=== PATIENT | male | born 1965 | race Caucasian/White ===

== ENCOUNTER 2016-02-23 18:01 | Emergency (ER) | payer BC, OTHER ==
[~2016-02-23] VITALS: Ht 177.8 cm; Wt 120.2 kg
[~2016-02-23 18:01] MED LIST: ALBUAER2 INH; IBUP600T44 PO; VALA500T60 PO
[2016-02-23 18:05] VITALS: TEMP 37.2; Ht 177.8 cm; Wt 120.2 kg
[2016-02-23] MEDS ORDERED: ALBUT/IPRATROP 3MG/0.5MG NEB 3 ML VIAL INH STA (19:10)
[2016-02-23] MEDS ORDERED: SODIUM CHLORIDE 0.9% 1000ML 1,000 ML IV STA (19:10)
[2016-02-23] MEDS ORDERED: METHYLPREDNISOLONE 125 MG VIAL IV STA (19:10)
[2016-02-23] MEDS ORDERED: OPTIRAY 320 IV PRN (19:15)
--- NOTE | 2016-02-23 19:28 | EMERGENCY ROOM VISIT NOTE ---
History Report prepared by Araseli: Veronica Judd Under the Supervision of: Dr. Carolee Macias M.D. First contact with patient: 19:03 Chief Complaint: RESPIRATORY PROBLEMS Stated Complaint: WHEEZING, COUGH, SOB Nursing Triage Summary: Bronchitis last week, feels it has worsened. SOB, worse cough, wheezing. 5 day Zpak and 5 days of prednisone. History of Present Illness The patient is a 50 year old male who presents to the Emergency Room with complaints of worsening respiratory symptoms for the past 5 days. He developed symptoms and was evaluated at [facility] where he was diagnosed with bronchitis. He was prescribed 5 days of a Z-Rory and prednisone. He finished these medications but feels that his symptoms have worsened. The patient is experiencing shortness of breath, productive cough, wheezing, and chest pain. His pain is worse with inspiration and coughing. He rates his pain as a 10/10. He denies fever, pain or swelling in his legs, and any personal history of PE. He had a negative flu test 5 days ago. The patient has a history of Hodgkin's Disease and a right middle lobectomy. Source of History: patient Onset: 5 days ago Position: chest (respiratory) Symptom Intensity: 10/10 Quality: other (wheezing) Timing: worsening Modifying Factors (Worsening): breathing (inspiration), other (cough) Associated Symptoms: + SOB, + chest pain, + cough, No fevers Note: Pt denies any pain or swelling in his legs or personal history of PE. Review of Systems See HPI for pertinent positives & negatives. A total of 10 systems reviewed and were otherwise negative. Past Medical & Surgical Medical Problems: (1) COPD exacerbation (2) Esophageal Reflux (3) Hodgkin's disease (4) Hypertension Nos (5) mediport (6) MRSA skin cellulitis (7) Obesity, Nos Surgical Problems: (1) History of lobectomy of lung Social History Problems: (1) Calculus Of Kidney Family History No pertinent history stated. Social History Smoking Status: Never Smoker Alcohol Use: none Marital Status: Housing Status: lives with significant other Occupation Status: employed Current/Historical Medications Scheduled Levofloxacin (Levaquin), 750 MG PO DAILY Prednisone (Prednisone), 10 MG PO DIRECTED Valacyclovir (Valtrex), 500 MG PO HS Scheduled PRN Albuterol (Ventolin), 2 PUFFS INH BID PRN for RN Ibuprofen (Motrin), 600 MG PO Q6H PRN for Pain Allergies Coded Allergies: No Known Allergies (Verified , 02/23/16) Physical Exam Vital Signs Date Time Temp Pulse Resp B/P Pulse Ox O2 Delivery O2 Flow Rate FiO2 02/23/16 22:38 91 18 159/98 91 Room Air 02/23/16 21:38 92 18 173/95 93 Room Air 02/23/16 19:33 88 02/23/16 19:30 94 Room Air 02/23/16 19:28 91 20 162/91 91 Room Air 02/23/16 18:08 Room Air 96 02/23/16 18:05 37.2 101 20 176/73 96 Room Air Physical Exam Vital signs reviewed. General: Well-appearing 50 year old male, in no significant distress. HEENT: No scleral icterus, PERRLA, neck supple. Atraumatic. Cardiovascular: Regular rate and rhythm, no extra sounds. Pulmonary: Rhonchi bilaterally, increased work of breathing. Abdomen: Soft, obese, nontender, nondistended, positive bowel sounds. Musculoskeletal: Atraumatic, no peripheral edema. Neurologic: Patient awake alert and oriented x 3, full strength in all 4 extremities. Cranial nerves 2 through 12 grossly intact. Skin: Warm, dry, no rash Medical Decision & Procedures ER Provider Diagnostic Interpretation: Radiology results as stated below per my review and radiologist interpretation: CHEST CTA for PULMONARY ARTERIES CT DOSE: 861.48 mGy.cm HISTORY: Cough. TECHNIQUE: Multiaxial CT images of the chest were performed following the intravenous administration of contrast to evaluate the pulmonary arteries. Maximal intensity projection images were also obtained. COMPARISON STUDY: Chest CT 12/22/2015. FINDINGS: Normal caliber thoracic aorta with no evidence for dissection. The heart is normal in size. No pleural or pericardial effusions. Suboptimal evaluation of the left lower lobe segmental/subsegmental pulmonary arteries due to the motion artifact. However, no definite filling defects within the pulmonary arteries to suggest pulmonary embolus. Right-sided post thoracotomy changes are again noted for a right lower lobe segmentectomy. No pneumothorax. Scattered tree-in-bud nodular opacities most pronounced within the bilateral lower lobes have developed in the interval. Small subpleural nodular density within the right lower lobe remains stable. This measures 7 mm and is likely benign. Mild left lower lobe bronchiectasis persists. Mild bronchial wall thickening has progressed. The liver and spleen are unremarkable. Stable nodular thickening of the left adrenal gland. Prominent gastrohepatic lymph nodes remain stable. However, there is been interval development of mediastinal and bilateral hilar lymphadenopathy. Dominant subcarinal lymph node measures 4.4 x 2.2 cm. There is enlarged left axillary lymph node measuring 2.5 x 1.8 cm. Multiple additional bilateral axillary lymph nodes are either subcentimeter in short axis diameter or demonstrate fatty jade. IMPRESSION: 1. No evidence for pulmonary embolus with limitations as described above. 2. Interval development of scattered tree-in-bud nodular opacities most pronounced within the lower lobes. This favors an infectious bronchiolitis and may be due to aspiration. 3. Interval development of mediastinal and bilateral hilar lymphadenopathy. There is also an enlarged left axillary lymph node. This is nonspecific but could be reactive or due to a neoplastic or inflammatory process such as sarcoidosis. Follow-up pulmonary consultation is recommended for further evaluation. Electronically signed by: Wander Samano M.D. 02/23/2016 10:15 PM Laboratory Results 02/23/16 20:31 Red Blood Count 4.52, Mean Corpuscular Volume 84.1, Mean Corpuscular Hemoglobin 29.2, Mean Corpuscular Hemoglobin Concent 34.7, Mean Platelet Volume 9.4 02/23/16 20:31 Test 02/23/16 20:01 02/23/16 20:02 02/23/16 20:31 02/23/16 20:49 Bedside D-Dimer > 450 ng/mlFEU (0-450) Bedside Troponin I 0.020 ng/ml (0-0.045) Influenza Type A (RT-PCR) Neg for Influ A (NEG) Influenza Type B (RT-PCR) Neg for Influ B (NEG) White Blood Count 8.96 K/uL (4.8-10.8) Red Blood Count 4.52 M/uL (4.7-6.1) Hemoglobin 13.2 g/dL (14.0-18.0) Hematocrit 38.0 % (42-52) Mean Corpuscular Volume 84.1 fL (80-100) Mean Corpuscular Hemoglobin 29.2 pg (25-34) Mean Corpuscular Hemoglobin Concent 34.7 g/dl (32-36) Platelet Count 135 K/uL (130-400) Mean Platelet Volume 9.4 fL (7.4-10.4) RDW Standard Deviation 43.8 fL (36.4-46.3) RDW Coefficient of Variation 14.2 % (11.5-14.5) Neutrophils % (Manual) 57.9 % Lymphocytes % (Manual) 29.8 % Monocytes % (Manual) 8.8 % Eosinophils % (Manual) 2.6 % Metamyelocytes % 0.9 % Neutrophils # (Manual) 5.19 K/uL (1.4-6.5) Total Absolute Neutrophils 5.19 K/uL (1.4-6.5) Lymphocytes # (Manual) 2.67 K/uL (1.2-3.4) Total Absolute Lymphocytes 2.67 K/uL (1.2-3.4) Monocytes # (Manual) 0.79 K/uL (0.11-0.59) Eosinophils # (Manual) 0.23 K/uL (0-0.5) Metamyelocytes # 0.08 K/uL (0-0) Red Blood Cell Morphology Unremarkable Prothrombin Time 10.9 SECONDS (9.0-12.0) Prothromb Time International Ratio 1.0 (0.9-1.1) Activated Partial Thromboplast Time 25.3 SECONDS (21.0-31.0) Partial Thromboplastin Ratio 1.0 Est Creatinine Clear Calc Drug Dose 159.5 ml/min Estimated GFR () 126.1 Estimated GFR (Non- 108.8 BUN/Creatinine Ratio 29.0 (10-20) Calcium Level 8.2 mg/dl (8.5-10.1) Total Bilirubin 0.7 mg/dl (0.2-1) Direct Bilirubin 0.2 mg/dl (0-0.2) Aspartate Amino Transf (AST/SGOT) 41 U/L (15-37) Alanine Aminotransferase (ALT/SGPT) 116 U/L (12-78) Alkaline Phosphatase 60 U/L (45-117) Total Creatine Kinase 782 U/L (39-308) Creatine Kinase MB 4.9 ng/ml (0.5-3.6) Creatine Kinase MB Ratio 0.6 (0-3.0) Total Protein 6.1 gm/dl (6.4-8.2) Albumin 3.0 gm/dl (3.4-5.0) Bedside Hemoglobin 12.6 g/dl (14.0-18.0) Bedside Hematocrit 37 % (42-52) Bedside Sodium 143 mEq/L (135-144) Bedside Potassium 3.0 mEq/L (3.3-5.0) Bedside Chloride 100 mEq/L (101-112) Bedside Total CO2 26 mEq/l (24-31) Anion Gap 21.0 mmol/L (16-25) Bedside Blood Urea Nitrogen 22 mg/dl (7-18) Bedside Creatinine 0.7 mg/dl (0.6-1.3) Bedside Glucose (other) 105 mg/dl (70-99) Bedside Ionized Calcium (Rajwinder) 1.05 mmol/l (1.12-1.32) Laboratory results per my review. Medications Administered Medications (Trade) Dose Ordered Sig/Gwen Route Start Time Stop Time Status Last Admin Dose Admin Sodium Chloride (Nss 1000ml) 1,000 ml @ 125 mls/hr Q8H STAT IV 02/23/16 19:10 02/23/16 21:06 DC 02/23/16 20:02 125 MLS/HR Albuterol/ Ipratropium (Duoneb) 3 ml NOW STAT INH 02/23/16 19:10 02/23/16 21:06 DC 02/23/16 19:43 3 ML Methylprednisolone Sodium Succinate (Solu-Medrol IV) 125 mg NOW STAT IV 02/23/16 19:10 02/23/16 21:06 DC 02/23/16 19:43 125 MG Levofloxacin (Levaquin Tab) 750 mg NOW ONCE PO 02/23/16 22:45 02/23/16 22:46 DC 02/23/16 22:56 750 MG Heparin Sodium (Porcine) (Heparin 10 Unit/ ml 5 ml Flush) 5 ml NOW STAT FLUSH 02/23/16 22:46 02/23/16 22:47 DC 02/23/16 22:51 5 ML ECG Indication: SOB/dyspnea Rate (beats per minute): 85 Rhythm: normal sinus Findings: no acute ischemic change, no ectopy ED Course 1904: Past medical records reviewed. The patient was evaluated in room C7. A complete history and physical examination was performed. 1909: Solu-Medrol 125 mg IV, Duoneb 3 ml INH, NSS 1000 ml @ 125 mls/hr IV 2229: I reassessed the patient at this time. He is feeling better and resting comfortably. I discussed the results and treatment plan with the patient. I answered all pertaining questions that he had. He expressed understanding and verbalized agreement. The patient will be discharged home. 5: Levofloxacin 750 mg PO 2245: Heparin Sodium 3 ml Flush Medical Decision Differential diagnosis: Etiologies such as infections, reactive airway disease, pneumonia, pneumothorax , COPD, CHF, cardiac ischemia, pulmonary embolism, musculoskeletal, gastrointestinal, as well as others were entertained. This pt was evaluated and appeared to be in no distress. He does have increase WOB. Pt has a significant medical history. He was given a duoneb tx. Chest CT was performed d/t h/o lymphoma and risk of PE. This study is neg for PE but reveals interval development of scattered tree-in-bud nodular opacities most pronounced within the lower lobes. This favors an infectious bronchiolitis and may be due to aspiration. There is also concern over increased lymphadenopathy. Pt was informed of the findings. He was placed on prednisone and levaquin. Pt was advised to see his PCP and oncologist in f/u. He declines albuterol inhalers as they "don't work" for him. He will return to the ED for worsening of symptoms or any medical concerns. Impression Primary Impression: Pneumonia Additional Impression: H/O Hodgkin's lymphoma Scribe Attestation The scribe's documentation has been prepared under my direction and personally reviewed by me in its entirety. I confirm that the note above accurately reflects all work, treatment, procedures, and medical decision making performed by me. Departure Information Dispostion Home / Self-Care Prescriptions Prednisone (Prednisone) 10 Mg Tab 10 MG PO DIRECTED, #31 TAB Plenty milligrams daily for 4 days, 30 mg for 3 days, 20 mg for 2 days, 10 mg for 2 days Prov: Carolee Macias M.D. 02/23/16 Levofloxacin (Levaquin) 750 Mg Tab 750 MG PO DAILY for 6 Days, #6 TAB Prov: Carolee Macias M.D. 02/23/16 Referrals Adriana Jimenez M.D. (MEDICAL) (PCP) Forms HOME CARE DOCUMENTATION FORM, IMPORTANT VISIT INFORMATION, WORK / SCHOOL INSTRUCTIONS Patient Instructions A Signature Page, My [facility] Additional Instructions Diagnosis: Pneumonia Levaquin 750 mg daily for 6 more days, start tomorrow Prednisone 40 mg for 4 days, 30 mg for 3 days, 20 mg for 2 days, 10 mg for 2 days Tylenol 650 mg every 6 hours as needed for fever. Follow-up with your physician this week for reevaluation. Return to the emergency department for worsening of symptoms or any medical concerns.
[2016-02-23] MEDS ORDERED: MAGNESIUM HYDROXIDE SUSP 30 ML UDC PO PRN (20:00)
[2016-02-23] MEDS ORDERED: ALBUTEROL 0.083% NEBU SOLN 3 ML VIAL INH PRN (20:00)
[2016-02-23] MEDS ORDERED: ALBUT/IPRATROP 3MG/0.5MG NEB 3 ML VIAL INH SCH (20:00)
[2016-02-23] MEDS ORDERED: METHYLPREDNISOLONE IV 60 MG in SYRINGE 0 ML IV SCH (20:00)
[2016-02-23] MEDS ORDERED: ALUMINUM/MAGNESIUM/SIMETH (MAALOX MAX) 30 ML UDC PO PRN (20:00)
[2016-02-23] MEDS ORDERED: ACETAMINOPHEN 325 MG TAB PO PRN (20:00)
[2016-02-23] MEDS ORDERED: ONDANSETRON INJ 2 MG/ML 2 ML VIAL IV PRN (20:00)
[2016-02-23] MEDS ORDERED: ZOLPIDEM TARTRATE 5 MG TAB PO PRN (20:00)
[2016-02-23 20:39] LABS: ALKALINE PHOSPHATASE 61 U/L (45-117); ALT/SGPT 121 U/L (12-78); BLOOD UREA NITROGEN 22 mg/dl (7-18); BUN/CREATININE RATIO 30.1 (10-20); CALCIUM 8.2 mg/dl (8.5-10.1); CARBON DIOXIDE 27 mmol/L (21-32); CHLORIDE 105 mmol/L (98-107); CREATININE 0.74 mg/dl (0.60-1.40); GLUCOSE 96 mg/dl (70-99); SODIUM 143 mmol/L (136-145)
[2016-02-23] MEDS ORDERED: POLYETHYLENE (MIRALAX) 17 GM PACK PO PRN (20:45)
[2016-02-23 20:46] LABS: MEAN CELL VOLUME 84.1 fL (80-100); MEAN CORPUSCULAR HEMOGLOBIN 29.2 pg (25-34); MEAN CORPUSCULAR HGB CONC 34.7 g/dl (32-36); MEAN PLATELET VOLUME 9.4 fL (7.4-10.4); PLATELET COUNT 135 K/uL (130-400); RED BLOOD COUNT 4.52 M/uL (4.7-6.1); WHITE BLOOD COUNT 8.96 K/uL (4.8-10.8)
[2016-02-23 21:00] LABS: PROTHROMBIN TIME (PATIENT) 10.9 SECONDS (9.0-12.0)
[2016-02-23 21:01] LABS: ISTAT CREATININE 0.7 mg/dl (0.6-1.3); ISTAT HEMOGLOBIN 12.6 g/dl (14.0-18.0); ISTAT IONIZED CALCIUM 1.05 mmol/l (1.12-1.32)
[2016-02-23 21:11] LABS: CALCIUM 8.2 mg/dl (8.5-10.1); CREATININE 0.72 mg/dl (0.60-1.40); POTASSIUM 3.2 mmol/L (3.5-5.1)
[2016-02-23 21:15] LABS: COMPLETE YES; EOSINOPHIL % 2.6 %; LYMPH ABS # 2.67 K/uL (1.2-3.4); LYMPHOCYTE % 29.8 %; META ABS # 0.08 K/uL (0-0); METAMYELOCYTE % 0.9 %; NEUTROPHILS % 57.9 %
[2016-02-23 21:16] LABS: CKMB/CK RATIO 0.6 (0-3.0)
[2016-02-23 21:38] LABS: INFLUENZA A PCR Neg for Influ A (NEG); INFLUENZA B PCR Neg for Influ B (NEG)
--- NOTE | 2016-02-23 22:17 | DIAGNOSTIC IMAGING REPORT ---
CHEST CTA for PULMONARY ARTERIES CT DOSE: 861.48 mGy.cm HISTORY: Cough. TECHNIQUE: Multiaxial CT images of the chest were performed following the intravenous administration of contrast to evaluate the pulmonary arteries. Maximal intensity projection images were also obtained. COMPARISON STUDY: Chest CT 12/22/2015. FINDINGS: Normal caliber thoracic aorta with no evidence for dissection. The heart is normal in size. No pleural or pericardial effusions. Suboptimal evaluation of the left lower lobe segmental/subsegmental pulmonary arteries due to the motion artifact. However, no definite filling defects within the pulmonary arteries to suggest pulmonary embolus. Right-sided post thoracotomy changes are again noted for a right lower lobe segmentectomy. No pneumothorax. Scattered tree-in-bud nodular opacities most pronounced within the bilateral lower lobes have developed in the interval. Small subpleural nodular density within the right lower lobe remains stable. This measures 7 mm and is likely benign. Mild left lower lobe bronchiectasis persists. Mild bronchial wall thickening has progressed. The liver and spleen are unremarkable. Stable nodular thickening of the left adrenal gland. Prominent gastrohepatic lymph nodes remain stable. However, there is been interval development of mediastinal and bilateral hilar lymphadenopathy. Dominant subcarinal lymph node measures 4.4 x 2.2 cm. There is enlarged left axillary lymph node measuring 2.5 x 1.8 cm. Multiple additional bilateral axillary lymph nodes are either subcentimeter in short axis diameter or demonstrate fatty jade. IMPRESSION: 1. No evidence for pulmonary embolus with limitations as described above. 2. Interval development of scattered tree-in-bud nodular opacities most pronounced within the lower lobes. This favors an infectious bronchiolitis and may be due to aspiration. 3. Interval development of mediastinal and bilateral hilar lymphadenopathy. There is also an enlarged left axillary lymph node. This is nonspecific but could be reactive or due to a neoplastic or inflammatory process such as sarcoidosis. Follow-up pulmonary consultation is recommended for further evaluation. Electronically signed by: Wander Samano M.D. 02/23/2016 10:15 PM
[2016-02-23 22:38] VITALS: BP 159/98; PULSE 91; O2SAT 91
[2016-02-23] MEDS ORDERED: LEVOFLOXACIN 250 MG TAB PO ONE (22:45)
[2016-02-23] MEDS ORDERED: PRED10TA PO (22:53)
[2016-02-23] MEDS ORDERED: LEVO1TAB35 PO (22:53)
== END 2016-02-23 23:08 | disposition home or self-care (01) ==
LOC: C.EDB 18:02 → C.EDC 23:08
DX: J18.9 Pneumonia, unspecified organism (principal); Z85.71 Personal history of Hodgkin lymphoma; I10 Essential (primary) hypertension; K21.9 Gastro-esophageal reflux disease without esophagitis; J44.9 Chronic obstructive pulmonary disease, unspecified; Z86.14 Personal history of Methicillin resistant Staphylococcus aureus infection; Z90.2 Acquired absence of lung [part of]; Z87.442 Personal history of urinary calculi; Z79.899 Other long term (current) drug therapy

== ENCOUNTER 2016-04-25 13:12 | Emergency (ER) | payer OTHER ==
[~2016-04-25] VITALS: Ht 177.8 cm; Wt 132.0 kg
[~2016-04-25 13:12] MED LIST changes: +PRED10TA PO
[2016-04-25 13:18] VITALS: TEMP 36.8; Ht 177.8 cm; Wt 132.0 kg
[2016-04-25] MEDS ORDERED: ALBUTEROL 0.083% NEBU SOLN 3 ML VIAL INH STA (13:33)
[2016-04-25] MEDS ORDERED: ASPI81TA28 PO (13:34)
[2016-04-25] MEDS ORDERED: BENZONATATE 100MG CAP PO ONE (13:45)
[2016-04-25 14:41] LABS: BASO % 0.2 %; BASO ABS # 0.01 K/uL (0-0.2); COMPLETE YES; HEMATOCRIT 38.6 % (42-52); LYMPH % 31.3 %; LYMPH ABS # 1.85 K/uL (1.2-3.4); MEAN CELL VOLUME 85.6 fL (80-100); MEAN CORPUSCULAR HEMOGLOBIN 29.9 pg (25-34); MEAN PLATELET VOLUME 9.5 fL (7.4-10.4); MONO % 13.3 %; NEUT % 51.2 %; PLATELET COUNT 153 K/uL (130-400); RED BLOOD COUNT 4.51 M/uL (4.7-6.1); WHITE BLOOD COUNT 5.92 K/uL (4.8-10.8)
[2016-04-25 14:57] LABS: CALCIUM 9.1 mg/dl (8.5-10.1); CREATININE 0.74 mg/dl (0.60-1.40); POTASSIUM 3.7 mmol/L (3.5-5.1)
--- NOTE | 2016-04-25 15:03 | DIAGNOSTIC IMAGING REPORT ---
CHEST 2 VIEWS ROUTINE CLINICAL HISTORY: cough COMPARISON STUDY: CT scan dated 02/23/2016 FINDINGS: There is a right-sided A-Port catheter present. The heart is normal in size. There is mild hilar prominence and right paratracheal soft tissue prominence, likely are presenting mild adenopathy. There is an irregular airspace opacity within the right apex measuring 18 mm. This was not present on the most recent CT scan favoring an inflammatory over neoplastic process. There are also subtle right basilar airspace opacities.[ IMPRESSION: 1. 18 mm right apical airspace opacity 2. Right basilar airspace opacities. 3. Trace right pleural effusion 4. The findings most likely are inflammatory. Short-term follow-up is recommended. Electronically signed by: Kt Doss M.D. 04/25/2016 3:01 PM Dictated Date/Time: 04/25/2016 2:53 PM
[2016-04-25 15:04] VITALS: BP 178/101; PULSE 96; O2SAT 97
[2016-04-25] MEDS ORDERED: LEVOFLOXACIN 250 MG TAB PO ONE (15:15)
[2016-04-25] MEDS ORDERED: LEVO1TAB35 PO (15:20)
[2016-04-25] MEDS ORDERED: BENZ100C18 PO (15:21)
--- NOTE | 2016-04-25 15:51 | EMERGENCY ROOM VISIT NOTE ---
History Report prepared by Araseli: Deanna Vega Under the Supervision of: Dr. Shilo Noonan D.O. First contact with patient: 13:22 Chief Complaint: COUGH Stated Complaint: SHORTNESS OF BREATH,COUGH,SORE THROAT History of Present Illness The patient is a 50 year old male who presents to the Emergency Room with complaints of persistent shortness of breath that began today. He currently rates his discomfort as a 10/10 in severity. The patient states that in February he was evaluated in the emergency department and diagnosed with pneumonia. He states that last week he developed a cough, cold, congestion, and runny nose. The patient states that yesterday he was in bed part of the day with chills and a sore throat. He states that today he woke up feeling that he cannot catch his breath, and additionally associates joint aches today. The patient states that his cough has been productive, noting thick green sputum for three to four days. He states that he has a history of Hodgkin's Lymphoma in 2005. 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 He states that he has been exposed to the flu. The patient states that he has been using jay-seltzer for his symptoms without relief. He denies any history of blood clots. The patient states that he got a flu shot this year. Pt denies headache, change in vision, fevers, chest pain, nausea, vomiting, diarrhea, pain with urination, and melena. Source of History: patient Onset: today Position: other (global) Symptom Intensity: 10/10 Quality: other (shortness of breath) Timing: other (persistent) Associated Symptoms: + chills, + cough, + sorethroat Note: Associated Symptoms: joint aches, cold, congestion, runny nose Review of Systems See HPI for pertinent positives & negatives. A total of 10 systems reviewed and were otherwise negative. Past Medical & Surgical Medical Problems: (1) COPD exacerbation (2) Esophageal Reflux (3) Hodgkin's disease (4) Hypertension Nos (5) mediport (6) MRSA skin cellulitis (7) Obesity, Nos Surgical Problems: (1) History of lobectomy of lung Social History Problems: (1) Calculus Of Kidney Family History FH: cancer Social History Smoking Status: Never Smoker Alcohol Use: none Marital Status: Housing Status: lives with significant other Occupation Status: employed Current/Historical Medications Scheduled Aspirin (Aspirin Ec), 81 MG PO DAILY Benzonatate (Tessalon Perles), 100 MG PO TID Levofloxacin (Levaquin), 750 MG PO QD@08 Valacyclovir (Valtrex), 500 MG PO HS Scheduled PRN Ibuprofen (Motrin), 600 MG PO Q6H PRN for Pain Allergies Coded Allergies: No Known Allergies (Verified , 02/23/16) Physical Exam Vital Signs Date Time Temp Pulse Resp B/P Pulse Ox O2 Delivery O2 Flow Rate FiO2 04/25/16 15:04 96 22 178/101 97 Room Air 04/25/16 15:03 97 Room Air 04/25/16 13:18 36.8 105 18 179/84 97 Room Air Physical Exam GENERAL: Sitting up in bed, alert, well appearing, well nourished, no distress, non-toxic EYE EXAM: normal conjunctiva. OROPHARYNX: no exudate, no erythema, lips, buccal mucosa, and tongue normal and mucous membranes are moist NECK: supple, no nuchal rigidity, no adenopathy, non-tender LUNGS: Clear to auscultation. Normal chest wall mechanics HEART: no murmurs, S1 normal and S2 normal ABDOMEN: abdomen soft, non-tender, normo-active bowel sounds, no masses, no rebound or guarding. BACK: Back is symmetrical on inspection and there is no deformity, no midline tenderness, no CVA tenderness. SKIN: no rashes and no bruising UPPER EXTREMITIES: upper extremities are grossly normal. LOWER EXTREMITIES: No pitting edema. Calves are equal bilaterally NEURO EXAM: Normal sensorium, cranial nerves II-XII grossly intact, normal speech, no gross weakness of arms, no gross weakness of legs. Medical Decision & Procedures ER Provider Diagnostic Interpretation: Xray results per the radiologist and my interpretation. Other results have been interpreted by the radiologist and reviewed by me. CHEST 2 VIEWS ROUTINE CLINICAL HISTORY: cough COMPARISON STUDY: CT scan dated 02/23/2016 FINDINGS: There is a right-sided A-Port catheter present. The heart is normal in size. There is mild hilar prominence and right paratracheal soft tissue prominence, likely are presenting mild adenopathy. There is an irregular airspace opacity within the right apex measuring 18 mm. This was not present on the most recent CT scan favoring an inflammatory over neoplastic process. There are also subtle right basilar airspace opacities.[ IMPRESSION: 1. 18 mm right apical airspace opacity 2. Right basilar airspace opacities. 3. Trace right pleural effusion 4. The findings most likely are inflammatory. Short-term follow-up is recommended. Electronically signed by: Kt Doss M.D. 04/25/2016 3:01 PM Dictated Date/Time: 04/25/2016 2:53 PM Laboratory Results 04/25/16 14:30 Red Blood Count 4.51, Mean Corpuscular Volume 85.6, Mean Corpuscular Hemoglobin 29.9, Mean Corpuscular Hemoglobin Concent 35.0, Mean Platelet Volume 9.5, Neutrophils (%) (Auto) 51.2, Lymphocytes (%) (Auto) 31.3, Monocytes (%) (Auto) 13.3, Eosinophils (%) (Auto) 3.0, Basophils (%) (Auto) 0.2, Neutrophils # (Auto ) 3.03, Lymphocytes # (Auto) 1.85, Monocytes # (Auto) 0.79, Eosinophils # (Auto ) 0.18, Basophils # (Auto) 0.01 04/25/16 14:30 Test 04/25/16 13:30 04/25/16 14:30 Influenza Type A Antigen Neg for Influ A (NEG) Influenza Type B Antigen Neg for Influ B (NEG) White Blood Count 5.92 K/uL (4.8-10.8) Red Blood Count 4.51 M/uL (4.7-6.1) Hemoglobin 13.5 g/dL (14.0-18.0) Hematocrit 38.6 % (42-52) Mean Corpuscular Volume 85.6 fL (80-100) Mean Corpuscular Hemoglobin 29.9 pg (25-34) Mean Corpuscular Hemoglobin Concent 35.0 g/dl (32-36) Platelet Count 153 K/uL (130-400) Mean Platelet Volume 9.5 fL (7.4-10.4) Neutrophils (%) (Auto) 51.2 % Lymphocytes (%) (Auto) 31.3 % Monocytes (%) (Auto) 13.3 % Eosinophils (%) (Auto) 3.0 % Basophils (%) (Auto) 0.2 % Neutrophils # (Auto) 3.03 K/uL (1.4-6.5) Lymphocytes # (Auto) 1.85 K/uL (1.2-3.4) Monocytes # (Auto) 0.79 K/uL (0.11-0.59) Eosinophils # (Auto) 0.18 K/uL (0-0.5) Basophils # (Auto) 0.01 K/uL (0-0.2) RDW Standard Deviation 43.0 fL (36.4-46.3) RDW Coefficient of Variation 13.7 % (11.5-14.5) Immature Granulocyte % (Auto) 1.0 % Immature Granulocyte # (Auto) 0.06 K/uL (0.00-0.02) Anion Gap 12.0 mmol/L (3-11) Est Creatinine Clear Calc Drug Dose 163.2 ml/min Estimated GFR () 124.7 Estimated GFR (Non- 107.6 BUN/Creatinine Ratio 20.0 (10-20) Calcium Level 9.1 mg/dl (8.5-10.1) Laboratory results per my review. Medications Administered Medications (Trade) Dose Ordered Sig/Gwen Route Start Time Stop Time Status Last Admin Dose Admin Benzonatate (Tessalon Perles Cap) 100 mg NOW ONCE PO 04/25/16 13:45 04/25/16 13:46 DC 04/25/16 13:51 100 MG Albuterol Sulfate (Ventolin 0.083% 2.5MG/3ML Neb) 2.5 mg NOW STAT INH 04/25/16 13:33 04/25/16 13:34 DC 04/25/16 13:51 2.5 MG Levofloxacin (Levaquin Tab) 750 mg NOW ONCE PO 04/25/16 15:15 04/25/16 15:16 DC 04/25/16 15:30 750 MG Heparin Sodium (Porcine) (Heparin 100 Unit/ml 5ml Flush) 5 ml STK-MED ONCE .ROUTE 04/25/16 15:30 04/25/16 15:34 DC 04/25/16 15:40 5 ML ECG Indication: SOB/dyspnea Rate (beats per minute): 98 Rhythm: sinus rhythm Findings: other (normal axis, poor baseline in high lateral and inferior leads) ED Course ED COURSE: Vital signs were reviewed and showed tachycardic and hypertensive The patients medical record was reviewed The above diagnostic studies were performed and reviewed. ED treatments and interventions as stated above. 1323: The patient was evaluated in room B2. A complete history and physical examination was performed. 1333: Ordered Albuterol Sulfate 2.5 mg INH. 1345: Ordered Benzonatate 100 mg PO. 1515: Ordered Levofloxacin 750 mg PO. 1523: Upon reevaluation, the patient is resting comfortably.I discussed my findings with the patient and he understands and agrees with the treatment plan. Based on the patients age, coexisting illnesses, exam and lab findings the decision to treat as an outpatient was made. The patient remained stable while under my care. The patient appeared well at the time of discharge. Medical Decision Differential diagnoses includes but is not limited to acute coronary syndrome, myocardial infarction, pericarditis, pulmonary embolus, aortic dissection, pneumonia, pneumothorax, musculoskeletal, shingles, esophageal. Patient is a 50-year-old male with a past medical history of Hodgkin's lymphoma that presents the ER for productive green cough associated with shortness of breath and myalgias. His is been going on for the past week. He also complains of congestion and sore throat. He was given a nebulizer treatment along with Levaquin following a chest x-ray showing pneumonia. There was a question of a pulmonary nodule and consequently I stressed the importance prior to discharge that he must follow-up with his PCP for repeat x-ray in 2-3 weeks to make sure no recurrence of lymphoma. CBC and BMP was unremarkable. Influenza was negative. Vitals are stable. Patient was discharged with Levaquin to follow-up with his primary care doctor to have repeat x-rays in 2 weeks. Discussed with Pt concerning signs and symptoms to watch out for. Pt was instructed to follow up with their PCP and discussed with the patient their option to return to the ED at anytime for persistent or worsening symptoms. The appropriate anticipatory guidance and out-patient management, including indications for return to the emergency department, were explained at length to the patient and understood. Impression Primary Impression: Pneumonia Scribe Attestation The scribe's documentation has been prepared under my direction and personally reviewed by me in its entirety. I confirm that the note above accurately reflects all work, treatment, procedures, and medical decision making performed by me. Departure Information Dispostion Home / Self-Care Prescriptions Benzonatate (TESSALON PERLES) 100 Mg Cap 100 MG PO TID, #30 CAP Prov: Shilo Noonan, DO 04/25/16 Levofloxacin (Levaquin) 750 Mg Tab 750 MG PO QD@08, #9 TAB Prov: Shilo Noonan, DO 04/25/16 Referrals Adriana Jimenez M.D. (MEDICAL) (PCP) Forms HOME CARE DOCUMENTATION FORM, IMPORTANT VISIT INFORMATION Patient Instructions My [facility], Pneumonia (Bacterial) - [facility] Additional Instructions Please follow up with your primary care doctor with in the next 24 hours. Any worsening of your symptoms, please return to the ED immediately. This includes persistent fevers greater than 100.4, worsening cough, passing out, or any other concerning signs or symptoms from your standpoint. You should have a repeat chest x-ray in next 2-3 weeks to make sure you had resolution of the pneumonia on her chest x-ray and to make sure there are no masses for possible recurrence of your lymphoma. Problem Qualifiers Primary Impression: Pneumonia Pneumonia type: due to unspecified organism Laterality: unspecified laterality Lung location: unspecified part of lung Qualified Codes: J18.9 - Pneumonia, unspecified organism
== END 2016-04-25 15:30 | disposition home or self-care (01) ==
LOC: C.EDB 13:13
DX: J18.9 Pneumonia, unspecified organism (principal); I10 Essential (primary) hypertension; K21.9 Gastro-esophageal reflux disease without esophagitis; Z79.82 Long term (current) use of aspirin

== ENCOUNTER → 2016-11-15 | Outpatient (CLI) | payer OTHER ==
[~2016-11-15] MED LIST changes: -ALBUAER2 INH; +ASPI81TA28 PO; -PRED10TA PO
--- NOTE | 2016-11-15 10:33 | DIAGNOSTIC IMAGING REPORT ---
THYROID ULTRASOUND HISTORY: Lump on neck felt bilaterally. NON HODGKIN LYMPHOMA C81.90 COMPARISON: PET CT 05/05/2010. FINDINGS: The patient's palpable abnormalities correspond to a few bilateral cervical lymph nodes. Dominant lymph node on the right measures 1.7 x 1.2 x 1.0 cm. Dominant lymph node on the left measures 1.5 x 1.5 x 1.1 cm. These demonstrate a slightly thickened cortex. IMPRESSION: Mild bilateral cervical lymphadenopathy. Fine-needle aspiration of the dominant lymph node on the right or left could be performed to exclude the possibility of a neoplastic process if clinically wanted. Electronically signed by: Wander Samano M.D. 11/15/2016 10:31 AM Dictated Date/Time: 11/15/2016 10:27 AM
== END | disposition home or self-care (01) ==
LOC: C.ULTR 09:25
PROVIDERS: ATTEND Internal Medicine Hematology & Oncology
DX: C81.90 Hodgkin lymphoma, unspecified, unspecified site (principal)

== ENCOUNTER → 2016-12-05 | Outpatient (CLI) | payer OTHER ==
--- NOTE | 2016-12-05 12:08 | DIAGNOSTIC IMAGING REPORT ---
ULTRASOUND-GUIDED RIGHT NECK FINE-NEEDLE ASPIRATION AND CORE BIOPSY CLINICAL HISTORY: Non-Hodgkin's lymphoma. Palpable cervical nodes. COMPARISON STUDY: Thyroid ultrasound dated 11/15/2016 FINDINGS: A timeout was performed. The risks of the procedure were explained the patient informed consent was obtained. Utilizing a 25-gauge needle under ultrasound guidance, a fine-needle aspiration biopsy was performed of a right occipital nodule. No lymphocytes were visualized, and it is therefore possible that this nodule represents a lipoma. A right-sided jugulodigastric lymph node ((with a mildly thickened cortex) was then targeted for biopsy. An initial pass with a 25-gauge needle revealed abundant lymphocytes. 2 passes were then performed for flow cytometry. A 20-gauge 1 cm ultrasound core biopsy was then performed of this lymph node. A touch prep revealed lymphocytes. The core sample was quite small, and therefore a repeat core biopsy was performed utilizing 18-gauge core needle. IMPRESSION: 1. Successful ultrasound-guided fine-needle aspiration and core biopsy of a right jugular digastric lymph node. Electronically signed by: Kt Doss M.D. 12/05/2016 12:07 PM Dictated Date/Time: 12/05/2016 12:02 PM
[2016-12-07 09:02] LABS: NEO FLOW LYMPH/LEUK STND SEE NEO MISC
== END | disposition home or self-care (01) ==
LOC: C.ULTR 10:28
PROVIDERS: ATTEND Internal Medicine Hematology & Oncology
DX: C81.90 Hodgkin lymphoma, unspecified, unspecified site (principal)

== ENCOUNTER 2016-12-29 09:24 | Day surgery (SDC) | payer OTHER ==
[~2016-12-29] VITALS: Ht 172.7 cm; Wt 127.5 kg
[~2016-12-29 09:24] MED LIST changes: +ATROPINE SULFATE 0.1 MG/ML 5ML SYR IV PRN; +EpHEDrine SULFATE INJ 50 MG/ML AMP IV PRN; +FENTANYL CITRATE INJ 50 MCG/1 ML 2 ML VIAL IV PRN; +LACTATED RINGER'S 1000ML 1,000 ML IV SCH; +ONDANSETRON INJ 2 MG/ML 2 ML VIAL IV PRN
[2016-12-29 09:45] VITALS: BP_SYST 220; BP_SYST 225; BP_DIAS 101; BP_DIAS 118; PULSE 80; TEMP 36.5; O2SAT 97; Ht 172.7 cm; Wt 127.5 kg
--- NOTE | 2016-12-29 10:07 | History & Physical Bridge Note ---
H&P Re-Evaluation Bridge Note: I have examined the patient, reviewed the History & Physical and in the interval since the performance of the History & Physical I have noted the following changes of clinical significance: No changes noted pt marked, SO to be here later
[2016-12-29] MEDS ORDERED: MIDAZOLAM HCL 1 MG/ML 2ML VIAL ONE ×2 (11:27→12:05)
[2016-12-29] MEDS ORDERED: FENTANYL CITRATE INJ 50 MCG/1 ML 2 ML VIAL ONE ×2 (11:27→12:15)
[2016-12-29] MEDS ORDERED: LIDOCAINE/EPINEPHRINE 1% 20 ML VIAL ONE (11:53)
[2016-12-29] MEDS ORDERED: PROPOFOL IV EMULSION 10 MG/ML 20 ML VIAL IV ONE (12:15)
--- NOTE | 2016-12-29 12:40 | [facility] Operative Report ---
Operative Report Operative Date Dec 29, 2016. Pre-Operative Diagnosis Right Cervical Lymphadenopathy Post-Operative Diagnosis Same as preoperative Procedure(s) Performed Excisional Biopsy Right Cervical Lymph Node Surgeon Dr. Jak Bustillos Phlebotomy Lab Assistant Surgeon(s) Joel Morales PA-C Estimated Blood Loss 1ml Findings alberto 1.5 cm soft tissue mass consistent with palpable right cervical node Specimens FRESH: 1.) Right Cervical Lymph Node Description of Procedure OR Summary dictated confirmation number [id number] I attest to the content of the Intraoperative Record and any orders documented therein. Any exceptions are noted below.
[2016-12-29] MEDS ORDERED: SODIUM CHLORIDE 0.9% 1000ML 1,000 ML IV SCH (12:41)
--- NOTE | 2016-12-29 12:41 | Discharge Instructions ---
Discharge Instructions Date of Service Dec 29, 2016. Visit Reason for Visit: Lymphadenopathy Discharge Discharge Diagnosis / Problem: Lymphadenopathy Discharge Goals Goal(s): Decrease discomfort, Improve function Activity Recommendations Activity Limitations: as noted below Lifting Limitations: gradually increase as tolerated Exercise/Sports Limitations: gradually increase as tolerated Shower/Bathe: tomorrow Driving or Machine Use: resume 3 days after discharge Anesthesia . Post Anesthesia Instructions: If you have had General Anesthesia or IV Sedation: * Do not drive today. * Resume driving when surgeon permits. * Do not make important decisions or sign legal documents today. * Call surgeon for: 1. Temperature elevations greater than 101 degrees F. 2. Uncontrollable pain. 3. Excessive bleeding. 4. Persistent nausea and vomiting. 5. Medication intolerance (nausea, vomiting or rash). * For nausea and vomiting use only clear liquids such as: tea, soda, bouillon until nausea subsides, then gradually increase diet as tolerated. * If you have any concerns or questions, call your surgeon's office. If physician is unavailable and it is an emergency, call 911 or go to the nearest emergency room. . Instructions / Follow-Up Instructions / Follow-Up Please follow-up with Dr. Bustillos in the office in 1 week for post-op check and to review pathology if it is back. Please call our office at to schedule an appointment if you have not done so already. You have a dressing on with steri-strips underneath. You may remove the dressing tomorrow. The steri-strips can remain on and they will fall off on their own within a week or so. Take Ibuprofen as needed for pain. You may alternate this with Tylenol as needed. Please contact our office at the number above with any further questions or concerns. Diet Recommendations Recommended Home Diet: no limitations, resume previous diet Procedures Procedures Performed: Excisional Biopsy Right Cervical Lymph Node Pending Studies Studies pending at discharge: yes List of pending studies: Pathology Medical Emergencies . Who to Call and When: Medical Emergencies: If at any time you feel your situation is an emergency, please call 911 immediately. . Non-Emergent Contact Non-Emergency issues call your: Primary Care Provider, Surgeon Call Non-Emergent contact if: you have a fever, temperature is above 101.5, your pain is not controlled, your pain is worsening, wound has increased drainage, wound has increased redness . . "Provider Documentation" section prepared by Joel Morales. . MD Drug Monitoring Program Drug Monitoring Findings: N/A - no narcotic pain medication prescribed.
[2016-12-29] MEDS ORDERED: ONDANSETRON INJ 2 MG/ML 2 ML VIAL IV PRN (12:45)
[2016-12-29] MEDS ORDERED: IBUPROFEN 600 MG TAB PO PRN (12:45)
[2016-12-29 13:00] VITALS: BP 176/90; PULSE 73; TEMP 36.9; O2SAT 98
--- NOTE | 2016-12-29 13:03 | OPERATIVE REPORT ---
DATE OF OPERATION: 12/29/2016 PREOPERATIVE DIAGNOSIS: Right cervical lymphadenopathy. POSTOPERATIVE DIAGNOSIS: Same. PROCEDURE: Excision right cervical lymphadenopathy. SURGEON: Dr. Bustillos. GAS BOOSTER ENGINEER: Joel Navarro PA-C SUMMARY: With the patient in the preoperative area, the area in the right posterior neck was marked with him awake. The area was about 1.5 cm at most, had previously been needle localized and aspirated for the lymph node. The patient was taken to the operating room where the right neck area was prepped with Betadine solution and properly draped. The patient had some IV sedation. At this point 0.1% Xylocaine with epinephrine was used to infiltrate right overlying the palpable lymph node, deepened through subcutaneous tissue. Once we got in the subQ, we had about a quarter of an inch of dermis until we were able to get into an area that almost looked fatty in nature but consistent with the area that we palpated. We took that whole area out, in summary was about 1.5 cm. Some of the substance was firmer consistent with more of the characteristic that we had felt preoperative but no really typical lymph node tissue I was able to appreciate. We palpated the whole area again and really did not find any other mass, other than what we had excised consistent with the preoperative marking. The wound was then closed with 2-0 Dexon interrupted and 4-0 Monocryl subcuticular. Steri-Strips applied, 4 x 4 and Op-Site. The procedure was tolerated well by the patient and was taken to recovery room in good condition. I attest to the content of the Intraoperative Record and any orders documented therein. Any exception s are noted below.
--- NOTE | 2016-12-29 13:13 | Anesthesiology Progress Note ---
Anesthesia Post Op Note Date & Time Dec 29, 2016 at 13:10 Vital Signs Pain Intensity: 0 Vital Signs Past 12 Hours Date Time Temp Pulse Resp B/P (MAP) Pulse Ox O2 Delivery O2 Flow Rate FiO2 12/29/16 12:50 36.4 157/97 12/29/16 12:45 72 16 157/105 97 Room Air 0 12/29/16 12:35 36.0 79 16 150/95 100 Room Air 0 12/29/16 09:45 36.5 80 20 220/101 (140) 97 Room Air 225/118 (153) Notes Mental Status: alert / awake / arousable Pt Amnestic to Procedure: Yes Nausea / Vomiting: adequately controlled Pain: adequately controlled Airway Patency, RR, SpO2: stable & adequate BP & HR: stable & adequate Hydration State: stable & adequate Anesthetic Complications: no major complications apparent
[2016-12-29 13:30] VITALS: BP 189/91; PULSE 74; O2SAT 98
== END 2016-12-29 13:40 | disposition home or self-care (01) ==
LOC: C.ACU 09:24
PROVIDERS: ATTEND Surgery
DX: R59.0 Localized enlarged lymph nodes (principal); D47.Z2 Castleman disease; J45.909 Unspecified asthma, uncomplicated; D80.3 Selective deficiency of immunoglobulin G [IgG] subclasses; G62.9 Polyneuropathy, unspecified; Z85.72 Personal history of non-Hodgkin lymphomas

== ENCOUNTER → 2017-03-22 | Outpatient (CLI) | payer OTHER ==
[~2017-03-22] MED LIST changes: -ATROPINE SULFATE 0.1 MG/ML 5ML SYR IV PRN; -EpHEDrine SULFATE INJ 50 MG/ML AMP IV PRN; -FENTANYL CITRATE INJ 50 MCG/1 ML 2 ML VIAL IV PRN; -LACTATED RINGER'S 1000ML 1,000 ML IV SCH; -ONDANSETRON INJ 2 MG/ML 2 ML VIAL IV PRN; +OPTIRAY 320 IV PRN
--- NOTE | 2017-03-22 14:27 | DIAGNOSTIC IMAGING REPORT ---
CT SCAN OF THE BRAIN COMBO CLINICAL HISTORY: Hodgkin's disease. COMPARISON STUDY: CT and MRI of the brain dated 11/14/2008. TECHNIQUE: Axial CT scan of the brain is performed from the vertex to the skull base before and following the IV administration of 116 cc of Optiray 320. IV contrast was administered without complication. A dose lowering technique was utilized adhering to the principles of ALARA. CT DOSE: 2523.48 mGy.cm FINDINGS: Brain parenchyma: The brain parenchyma is normal in appearance. There is no hemorrhage, mass effect, or evidence of acute territorial ischemia by CT criteria. No enhancing mass lesion is identified in the postcontrast series. Kline-white matter is preserved. No extra-axial fluid collection is seen. Ventricles, sulci, cisterns: Normal in configuration. Intracranial vasculature: The visualized intracranial vasculature at the skull base is normal in appearance. Calvarium: Unremarkable. Sinuses and mastoids: There is subtotal opacification of the right ethmoid sinuses. The remaining visualized paranasal sinuses are clear. The mastoid air cells are well pneumatized. Orbits: The bony orbits are grossly intact. Soft tissues: The soft tissues of the scalp are normal in appearance. IMPRESSION: There is no hemorrhage, enhancing mass, or evidence of acute territorial ischemia by CT criteria. Electronically signed by: Rafa Maya M.D. 03/22/2017 2:25 PM Dictated Date/Time: 03/22/2017 2:22 PM
--- NOTE | 2017-03-22 14:28 | DIAGNOSTIC IMAGING REPORT ---
SOFT TISSUE NECK WITH CLINICAL HISTORY: 51 years-old Male presenting with HODGKIN'S DISEASE. TECHNIQUE: Multidetector CT of the neck was performed after the administration of intravenous contrast. IV contrast: 116 mL of Optiray 320. A dose lowering technique was used consistent with the principles of ALARA (as low as reasonably achievable). COMPARISON: Ultrasound from 11/15/2016. CT DOSE (mGy.cm): The estimated cumulative dose is 2523.[address] scans. FINDINGS: Quality Systems Technician topogram: Right subclavian Mediport. Extensive mucosal thickening in the maxillary sinuses and ethmoid air cells. No effacement of the valleculae or piriform sinuses. No suspicious nodular enhancement along the airway. No displacement of the parapharyngeal fat planes. Multiple enlarged cervical lymph nodes bilaterally, on the right measuring up to 1.6 cm in in the long axis in level IIb (series 8 image 108) and 1.6 cm the long axis on the left in level IIa. Additional enlarged lymph nodes evident bilaterally in levels IIa, IIb, III, on the left in IV and borderline enlarged in the bilateral posterior triangles. Remainder of the soft tissues of the neck within normal limits. Vessels patent. Lung apices clear. Osseous structures demonstrate changes of chronic sinusitis in the maxillary sinuses. Normal cervical spine. IMPRESSION: 1. Enlarged bilateral cervical lymph nodes concerning for lymphomatous involvement given the patient's history. 2. Evidence of chronic maxillary sinusitis. An acute component cannot be excluded. Electronically signed by: Franklyn Yoder M.D. 03/22/2017 2:26 PM Dictated Date/Time: 03/22/2017 2:14 PM
--- NOTE | 2017-03-22 14:48 | DIAGNOSTIC IMAGING REPORT ---
CT OF THE CHEST WITH IV CONTRAST CLINICAL HISTORY: Hodgkin's DISEASE COMPARISON STUDY: CT angiography the chest dated 02/23/2016 TECHNIQUE: Following the IV administration of 116 mL of Optiray-320, CT of the thorax was performed from the thoracic inlet to the lung bases. Images are reviewed in the axial, sagittal, and coronal planes. IV contrast was administered without complication. A dose lowering technique was utilized adhering to the principles of ALARA. CT DOSE: FINDINGS: Thyroid: Imaged portions of the thyroid gland are normal in appearance. Thoracic aorta: The thoracic aorta is normal in course and caliber, noting standard 3-vessel arch anatomy. No aneurysm or dissection is seen. Pulmonary vasculature: The pulmonary trunk is normal in caliber. There are no central filling defects identified to suggest pulmonary embolus. Note that this examination was not protocoled for the evaluation of pulmonary emboli. HEART: There are coronary artery calcifications present. Lungs and pleural spaces: There are no pleural effusions. There are postsurgical changes of a right lower lobe segmentectomy. There is no focal pulmonary consolidation. There are no suspicious pulmonary masses. Mediastinum: There is no mediastinal lymphadenopathy. Jaclyn: Postsurgical changes are present on the right. There is no evidence of pathologic adenopathy. Axilla: There is no evidence of pathologic adenopathy. Upper abdomen: There are mildly prominent retroperitoneal para-aortic lymph nodes, similar to the prior study. Skeletal structures: There is a chronic right rib deformity, likely secondary to prior surgery IMPRESSION: 1. Stable postoperative changes within the right lung 2. No evidence of pathologic adenopathy within the chest 3. Stable nonspecific prominent retroperitoneal/perinephric lymph nodes 4. No evidence of acute parenchymal consolidation Electronically signed by: Kt Doss M.D. 03/22/2017 2:47 PM Dictated Date/Time: 03/22/2017 2:25 PM
== END | disposition home or self-care (01) ==
LOC: C.CTS 13:03
PROVIDERS: ATTEND Internal Medicine Hematology & Oncology
DX: C81.92 Hodgkin lymphoma, unspecified, intrathoracic lymph nodes (principal)

== ENCOUNTER → 2017-06-23 | Outpatient (CLI) | payer OTHER ==
[~2017-06-23] MED LIST changes: -OPTIRAY 320 IV PRN
--- NOTE | 2017-06-23 12:13 | DIAGNOSTIC IMAGING REPORT ---
ULTRASOUND SOFT TISSUES NECK CLINICAL HISTORY: Hodgkin's disease. COMPARISON STUDY: CT scan of the neck dated 03/22/2017. FINDINGS: Real-time, grayscale, and color flow sonography of the soft tissues of the neck is performed. There are numerous bilateral cervical lymph nodes. The largest on the right measures up to 3.1 x 0.8 x 1.5 cm in length and the largest on the left measures up to 1.5 x 0.5 x 1.0 cm and length. These maintain normal fatty jade, and these are likely unchanged from the 03/22/2017 CT examination. IMPRESSION: Mildly enlarged bilateral cervical lymph nodes as above, not significantly changed from previous. Electronically signed by: Rafa Maya M.D. 06/23/2017 12:12 PM Dictated Date/Time: 06/23/2017 12:09 PM
== END | disposition home or self-care (01) ==
LOC: C.ULTR 11:18
PROVIDERS: ATTEND Internal Medicine Hematology & Oncology
DX: C81.92 Hodgkin lymphoma, unspecified, intrathoracic lymph nodes (principal)

== ENCOUNTER 2019-09-20 18:38 | Observation (INO) ==
[2019-09-20] MEDS ORDERED: ALBUTEROL HFA 8 GM INHALER INH PRN (21:30)
[2019-09-20] MEDS ORDERED: NON-FORMULARY MEDICATION (Albuterol Sulfate 2 PUFFS) INH PRN (21:30)
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
[2019-09-21 05:03] LABS: Hematocrit (blood only) 40.3 % (42-52); Hemoglobin 13.9 g/dL (14.0-18.0); Mean Corpuscular Hemoglobin 30.2 pg (25-34); Mean Corpuscular Hgb Conc 34.5 g/dL (32-36); Mean Corpuscular Volume 87.4 fL (80-100); Mean Platelet Volume 9.7 fL (7.4-10.4); Platelet Count 103 K/uL (130-400); RDW Coefficient of Variation 14.8 % (11.5-14.5); RDW Standard Deviation 47.1 fL (36.4-46.3); Red Blood Count 4.61 M/uL (4.7-6.1); White Blood Count 5.56 K/uL (4.8-10.8)
[2019-09-21 05:24] LABS: BUN Creatinine Ratio 23.1 (10-20); Calcium 8.6 mg/dl (8.5-10.1); Creatinine Clr Calc Pharmacy 154.8 ml/min; Est GFR (African American) 121.2; Est GFR (Non-African American) 104.6; Magnesium 2.2 mg/dl (1.8-2.4); Phosphorus 3.9 mg/dl (2.5-4.9); Potassium 3.6 mmol/L (3.5-5.1)
--- NOTE | 2019-09-21 07:48 | Magnetic Resonance Report ---
MR brain wo con HISTORY: Assess change AMS TECHNIQUE: Multiplanar multisequence MRI of the brain was performed without the use of contrast. COMPARISON STUDY: None. FINDINGS: Diffusion images show no evidence for an acute ischemic process. There are several very small foci of increased signal in the periventricular regions. This is nonspec ific for age. Ventricular system is midline. There is an empty sella which is considered an anatomic variant. No deviation of the midline structur es. IMPRESSION: 1. No acute intracranial abnormality. 2. Minimal chronic small vessel change. ACT 112: Negative or not required by law. The above report was generated using voice recognition software. It may contain grammatical, syntax or spelling errors. Electronically signed by: Luther Lambert M.D. 09/21/2019 7:46 AM
[2019-09-21] MEDS: ESCITALOPRAM OXALATE 20 MG TAB PO SCH (08:15)
[2019-09-21] MEDS: BUSPIRONE HCL 7.5 MG TAB PO SCH ×2 (08:15→20:20)
[2019-09-21] MEDS: ASPIRIN 81 MG ECTAB PO SCH (08:16)
[2019-09-21] MEDS ORDERED: BuPROPion XL 150 MG TABCR PO SCH (09:00)
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
[2019-09-21] MEDS: guaiFENesin 600 MG TABCR PO SCH ×2 (12:43→20:20)
[2019-09-21] MEDS: DOXYCYCLINE HYCLATE 100 MG CAP PO SCH ×2 (12:43→20:20)
[2019-09-21] MEDS: LEVALBUTEROL HCL 1.25 MG/3 ML NEB NEB SCH ×2 (14:00→18:46)
--- NOTE | 2019-09-21 18:39 | Hospitalist Progress Note ---
Date of Service September 21, 2019 Assessment & Plan (1) Altered mental status: possible confusion associated with pneumonia vs. dissociative fugue -Was initially evaluated as a stroke alert at [facility] ED, there CT head, CTA head and neck was negative, urine tox was positive for tricyclics, otherwise work-up unremarkable -ECG showed normal sinus rhythm, troponin was negative, UA negative back to baseline mental status Brain MRI: no acute process Neurologist consulted- Dr. Archibald recommend treatment of underlying pneumonia discontinue Wellbutrin outpatient EEG Right Lower Lobe Pneumonia per admitting MD notes: X-ray was obtained, by radiology read, negative for any acute process, however by physician's note, concern for right middle lobe versus right lower lobe pneumonia. Per chart review, patient underwent right middle lobe lobectomy. obtain sputum culture start Doxycycline 100mg BID Xopenex Mucinex monitor (2) H/O Hodgkin's lymphoma: per admitting SVC MD: History of Hodgkin's lymphoma, and family history of Hodgkin's lymphoma -Currently not undergoing any treatment, per patient, last treatment was with IVIG in 2017 -Per patient, he established care with new oncologist about 2 months ago, at [facility] (3) Body mass index (BMI) of 40.0-44.9 in adult: Lifestyle modification counseling Depression stable on Buspirone, Escitalopram Code Full Disposition home when medically stable, discussed with patient may not be driving for next 6 months, will discuss further with neurology Admission and Anticipated Discharge Date Admission Date: September 20, 2019 Subjective ff up for altered mental status, possible pneumonia seen resting in bed, sitting up, comfortable states he feels better overall no confusion, altered mental status, focal neurologic deficits reports cough, productive of greenish sputum, no fever/chills no chest pain denies headache, dizziness, palpitations, abdominal pain, problems with urination or BM denies pain in his body denies other symptoms Review of Systems Review of Systems: All systems reviewed & are unremarkable except as noted in HPI & below Physical Exam Physical Exam: General- oriented x 3, not in distress, speaks in sentences with no effort or accessory muscle use Head- atraumatic Eyes- PERRL, EOMI, anicteric ENT- oropharynx clear Neck- supple, no JVD, no adenopathy, no thyromegaly; carotids +2/2, no bruits appreciated Lungs-(+) rhonchi right base no wheezing clear on the left Heart- normal rate, regular rhythm; no murmur, no gallop, no rub appreciated Abdomen- normal bowel sounds, nondistended, soft, nontender, no masses or hepatosplenomegaly Extremities- no pretibial edema, no calf tenderness; peripheral pulses intact Neuro- alert, oriented x 3; CN 2-12 grossly intact; motor 5/5 bilaterally;sensation 100% on all extremities; no other gross focal neurologic deficits Skin- warm & dry Results & Data Results & Data ([facility]) Vital Signs (Past 12 Hours) Vital Signs Temp Pulse Pulse Resp BP BP Pulse Ox 09/21/19 17:00 81 13 09/21/19 16:27 79 16 178/89 H 95 09/21/19 16:00 36.6 C 71 18 09/21/19 15:00 89 12 09/21/19 14:02 71 18 97 09/21/19 14:00 88 20 09/21/19 13:00 94 H 20 09/21/19 12:45 175/90 H 09/21/19 12:43 99 H 31 H 175/90 H 97 09/21/19 12:00 91 H 17 09/21/19 11:09 86 18 09/21/19 10:00 72 13 09/21/19 09:00 73 15 09/21/19 08:13 86 17 178/90 H 98 09/21/19 08:00 36.8 C 76 20 09/21/19 07:00 64 15
[2019-09-21] MEDS ORDERED: AMLODIPINE BESYLATE 5 MG TAB PO ONE (18:55)
[2019-09-21] MEDS ORDERED: VALACYCLOVIR HCL 500 MG TABLET PO SCH (21:00)
[2019-09-22] MEDS: LEVALBUTEROL HCL 1.25 MG/3 ML NEB NEB SCH ×3 (00:05→16:40)
[2019-09-22] MEDS: guaiFENesin 600 MG TABCR PO SCH (07:56)
[2019-09-22] MEDS: BUSPIRONE HCL 7.5 MG TAB PO SCH (07:56)
[2019-09-22] MEDS: ESCITALOPRAM OXALATE 20 MG TAB PO SCH (07:56)
[2019-09-22] MEDS: DOXYCYCLINE HYCLATE 100 MG CAP PO SCH (07:56)
[2019-09-22] MEDS: ASPIRIN 81 MG ECTAB PO SCH (07:57)
[2019-09-22] MEDS: HydrALAZINE HCL 20 MG/ML VIAL IV PRN ×2 (08:00→16:31)
--- NOTE | 2019-09-22 11:12 | Hospitalist Progress Note ---
Date of Service September 22, 2019 Assessment & Plan (1) Altered mental status: possible confusion associated with pneumonia vs. dissociative fugue -Was initially evaluated as a stroke alert at [facility] ED, there CT head, CTA head and neck was negative, urine tox was positive for tricyclics, otherwise work-up unremarkable -ECG showed normal sinus rhythm, troponin was negative, UA negative Transferred to [facility] for neurology evaluation [facility], patient was back to baseline mental status Brain MRI: no acute process Neurologist consulted- Dr. Archibald recommend treatment of underlying pneumonia discontinue Wellbutrin outpatient EEG Patient may continue driving per neurology service Follow-up with PCP this coming week Right Lower Lobe Pneumonia per admitting MD notes: X-ray was obtained, by radiology read, negative for any acute process, however by physician's note, concern for right middle lobe versus right lower lobe pneumonia. Per chart review, patient underwent right middle lobe lobectomy. obtain sputum culture Started on doxycycline 100mg BID, Mucinex and Xopenex Afebrile, cough improving, no shortness of breath Continue doxycycline 100 mg twice daily x1 week Continue Mucinex and Xopenex at home Follow-up with PCP this coming week (2) H/O Hodgkin's lymphoma: per admitting C MD: History of Hodgkin's lymphoma, and family history of Hodgkin's lymphoma -Currently not undergoing any treatment, per patient, last treatment was with IVIG in 2017 -Per patient, he established care with new oncologist about 2 months ago, at [facility] -CT angiogram of the neck revealed "multiple enlarged lymph nodes throughout the neck. This is suspicious for neoplasm" -Patient advised to follow-up with oncologist within 1 to 2 weeks for review of previous CT scans of the neck versus the current and rule out progression of the cervical lymphadenopathy (3) Body mass index (BMI) of 40.0-44.9 in adult: Lifestyle modification counseling Depression stable on Buspirone, Escitalopram Code Full Disposition Discharge to home Follow-up with primary care physician in 1 week Follow-up with oncologist in 1 to 2 weeks Plan of care discussed with patient and his significant other in detail and at length All questions were answered They are understanding, agreeable, comfortable with the plan of care Admission and Anticipated Discharge Date Admission Date: September 20, 2019 Subjective Follow-up for altered mental status episode, pneumonia Seen sitting up in bed, comfortable, not in distress, in good spirits States that he feels much better overall No recurrence of altered mental status, confusion, forgetfulness, or any other focal neurologic deficits Reports cough has significantly improved, no sputum production, no fevers chills, no shortness of breath, no chest pain No dizziness, no headache, abdominal pain, nausea vomiting Denies any pain in his body Ambulating with no problems No other symptoms States he is ready and like to be discharged home Review of Systems Review of Systems: All systems reviewed & are unremarkable except as noted in HPI & below Physical Exam Physical Exam: General- oriented x 3, not in distress, speaks in sentences with no effort or accessory muscle use Eyes- anicteric Neck- no JVD Lungs-faint rhonchi on the right lower lobe No wheezing, clear breath sounds on the left Heart- normal rate, regular rhythm; no murmurs Abdomen- normal bowel sounds, nondistended, soft, nontender Extremities- no pretibial edema, no calf tenderness Neuro- alert, oriented x 3; no gross focal neurologic deficits Skin- warm & dry Results & Data Results & Data ([facility]) Vital Signs (Past 12 Hours) Vital Signs Temp Pulse Pulse Resp BP Pulse Ox 09/22/19 09:36 78 19 97 09/22/19 04:00 36.6 C 71 16 165/86 H 96 09/22/19 00:05 83 16 97 09/21/19 23:55 81 09/21/19 23:54 37.0 C 79 15 170/89 H 95 Laboratory Results All noted and reviewed
[2019-09-22] MEDS ORDERED: AMLODIPINE BESYLATE 5 MG TAB PO SCH ×2 (11:15→16:30)
[2019-09-22] MEDS ORDERED: DOXYCYCLINE HYCLATE 100 MG CAP PO SCH (16:30)
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
== END 2019-09-22 17:02 | disposition home or self-care (01) ==
LOC: INTOOBSV 20:25 → 1E 20:25 → SUATTDRO 20:25

== ENCOUNTER 2020-03-25 01:24 | Inpatient (IN) ==
[2020-03-25] MEDS ORDERED: LABETALOL HCL IV 5 MG/ML 20ML IV STA ×4 (01:32→21:43)
--- NOTE | 2020-03-25 01:38 | Emergency Department Note ---
Impression & Plan Acute right-sided weakness, Hypertensive urgency ED Provider Note Name: YOKO KEVIN Age: 54 Sex: M Arrives Via: Ambulance Informant: Patient, EMS ED Provider: Jose Karimi MD Chief Complaint: Stroke Impression: Acute Right Sided weakness Hypertensive Urgency Medical Decision Makin yr old male with history of Hodgkin's Lymphoma (no current chemo), GERD, COPD arrives following a 30min episode acute right sided weakness now completely resolved. On initial exam neuro intact and looks well. SBP 210 on arrival without significant HTN history. CT head neck angio obtained without acute findings. Labs with thrombocytopenia (chronic) otherwise unremarkable. Patient did have right neck surgery though no evidence issue on CT. This is consistent with TIA vs hypertensive emergency. BP brought down gently with good response and no further symptoms. ASA 324mg given for further protection. No current neuro symptoms, no findings on imaging at this time, I do not see indication for TPA nor Neuro Stroke evaluation at the moment. Patient agreeable to hospitalization and his significant other (Bell) was made aware of plan (after he agreed for me to discuss with her). No evidence this was post surgical related issues at this time. No findings of infection. No history of seizures and given symptoms seems less likely. Prior Medical Record and Triage/Nursing Notes reviewed by Me Additional history obtained from chart and girlfriend Differentials:Infection, dehydration, metabolic abnormality, h ypo/hyperglycemia, electrolyte disturbance, anemia, hypoxia, cardiac sources, intracerebral event, toxicologic, neurologic, as well as other pathologies. Vital Signs: reviewed and remarkable for HTN Interventions: saline lock, labetalol 10mg IV x 2, Aspirin 324mg PO Labs:Reviewed and remarkable for no significant abnormalities Imaging:X ray results are stated below per my interpretation: Chest: 1 view: No infiltrate, no effusion, normal cardiac border. [facility] Radiologist interpretation reviewed by me: CT head/neck angio: Diffuse neck lymphadenopathy, no acute other findings EKG:Per My Interpretation: Indication Stroke: NSR 78 bpm, qtc 412. PAC noted. No Ischemia. Compared to EKG 02/24/2020, no significant changes other than PAC is new. Cardiac/Tele Monitoring: Cardiac Monitoring: An Order was placed for continuous cardiac monitoring. The monitor shows a rate of 70 with a normal sinus rhythm. Consults:Dr David Ivy hospitalist Plan: Disposition:Hospitalization. Condition: Good History of Present Illness:54 yr old male arrives for evaluation of right sided weakness now resolved. Patient notes he was in kitchen when he developed sudden onset right arm, leg and facial weakness. No left sided deficits nor headache. Notes girlfriend called 911. Symptoms resolved completely about 30 minutes after onset. Denies headache, neck pain, nausea, vomiting, chest pain, sob, back pain, cough, fevers, chills, abdominal pain, leg swelling nor other symptoms. Recent right neck lymph node biopsy and left mediport placed. Patient with history Hodkin's lymphoma and recently concern for return but has yet to start chemo. Patient denies head injury nor trauma nor syncope. Denies previous TIA nor stroke nor CAD history. No medications prior to arrival. EMS reported BP elevated while en route which patient states is very unusual for him. Patient does take 81mg ASA daily. Chronic thrombocytopenia noted. ROS: See above HPI for pertinent positives & negatives. A total of 10 systems reviewed and were otherwise negative. Past Medical History:See Below Past Surgical History:See Below Family History:See Below Social History:See Below Home Medications:See Below Allergies:NKDA Vitals:Blood Pressure: 210/110, Pulse 70, RR 20, T 3.8C, O2 97% on RA Physical Exam: GENERAL: Patient is well appearing and in minimal distress. EYES: No scleral icterus, unremarkable pupils. ENT: Mucous membranes moist, no nasal congestion. NECK: Seroma right lower lateral neck with healing incision. Diffuse lymphadenopathy, nomeningismus, trachea is midline. RESPIRATORY: No dyspnea. Clear to auscultation and equal bilaterally. Faint bilateral wheeze, no rhonchi. CARDIOVASCULAR: Regular rate and rhythm.No murmurs, rubs, gallops appreciated. GASTROINTESTINAL: Abdomen soft, non-tender, no peritonitis.Bowel sounds positive.No masses appreciated. BACK: No midline tenderness, no CVA tenderness EXTREMITIES: Normal motion all extremities, no cyanosis, no edema. NEUROLOGIC: Alert and oriented, no acute motor or sensory deficits, no focal weakness, cranial nerves grossly intact. SKIN: No rash, no jaundice, no diaphoresis. PSYCH: Appropriate GCS: 15 ED Course: Times/Reassessments: Gradually improving BP, no further symptoms and otherwise feeling well Critical Care: I have personally spent 30 minutes of critical care time in the direct management of this patient. Acute Hypertensive Urgency requiring 2 rounds IV antihypertensive. This was a life/limb threatening event. This 30 minutes is in excess of all separately billable procedures. 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 Bustillos 02/11/2020 Thrombocytopenia chronic thrombocytopenia dating back to at least 02/2018, baseline plts 80's- low 100's range per chart review, most recent plt level 109 02/05/20 Surgical History History of colonoscopy History of lobectomy of lung RML > 2002 History of removal of Port-a-Cath Hx of lymph node excision right neck and right axillary S/P lymph node biopsy (02/11/20) Right Supracalvicular Lymph Node Biopsy Dr. Bustillos 02/11/2020 Family History Brother Cancer Hodgkin's lymphoma Other Diabetes Social History Smoking Status: Never smoker Second Hand Exposure: No; Do You Dip or Chew Tobacco: No; Tobacco Cessation Education Requested by Patient: No Hx Alcohol Use: Yes Alcohol type: wine Hx Substance Use: No Preferred Language: Turkish Communication Ability: Effective Machine Hoop Maker Required: No Beliefs That Will Affect Care: None Current Living Situation: Significant Other Other Information That Helps Us Care for You: No Feels Safe at Home: Yes Safety Concerns: Feels Safe At This Time Assistive Devices: None Allergies Allergies Allergy/AdvReac Type Severity Reaction Status Date / Time No Known Allergies Allergy Verified 03/25/20 02:19 Home Meds Home Medications Medication Instructions Recorded Confirmed aspirin 81 mg PO QAM 03/15/18 03/25/20 valacyclovir [Valtrex] 500 mg PO PM 03/15/18 03/25/20 albuterol sulfate [Ventolin HFA] 2 puff INHALATION Q6H PRN 06/30/19 03/25/20 buspirone 15 mg tablet 15 mg PO BID 09/30/19 03/25/20 escitalopram oxalate 20 mg tablet 20 mg PO QAM 09/30/19 03/25/20 ipratropium 0.5 mg-albuterol 3 mg 3 ml INHALATION Q4H PRN 12/03/19 03/25/20 (2.5 mg base)/3 mL nebulization soln ibuprofen [Motrin IB] 600 mg PO Q6H PRN 02/24/20 03/25/20 amlodipine 10 mg PO DAILY 03/25/20 03/25/20 Results & Data (ED) Vital Signs Vital Signs - 24 hr 03/25/20 01:38 03/25/20 01:58 03/25/20 02:15 Temperature 36.8 C Temperature Source Oral Pulse Rate 84 Pulse Rate [Bilateral Apical] 78 77 Respiratory Rate 20 20 20 Respiratory Effort / Characteristics Non-Labored Respiratory Depth Normal Blood Pressure 210/116 H Blood Pressure [Right Arm] 183/89 H 180/110 H Blood Pressure Mean 147 Blood Pressure Mean [Right Arm] 120 133 Pulse Oximetry 98 95 97 Oxygen Delivery Method Room Air Room Air Sepsis Recent Fever Within 48 Hours No Sepsis New/Unexplained Change in Mental Status N/A Sepsis Action Taken by Nursing No Action Required 03/25/20 02:31 Temperature Temperature Source Pulse Rate Pulse Rate [Bilateral Apical] 76 Respiratory Rate 20 Respiratory Effort / Characteristics Respiratory Depth Blood Pressure Blood Pressure [Right Arm] 176/91 H Blood Pressure Mean Blood Pressure Mean [Right Arm] 119 Pulse Oximetry 97 Oxygen Delivery Method Room Air Sepsis Recent Fever Within 48 Hours Sepsis New/Unexplained Change in Mental Status Sepsis Action Taken by Nursing Laboratory Data Result diagrams: 03/25/20 01:08 03/25/20 01:08 Lab Results 03/25/20 03/25/20 03/25/20 Range/Units 01:08 01:08 01:08 WBC 5.27 (4.8-10.8) K/uL RBC 4.65 L (4.7-6.1) M/uL Hgb 14.2 (14.0-18.0) g/dL POC Hgb (14.0-18.0) g/dl Hct 40.7 L (42-52) % POC Hct (42-52) % MCV 87.5 (80-100) fL MCH 30.5 (25-34) pg MCHC 34.9 (32-36) g/dL RDW Std Deviation 44.9 (36.4-46.3) fL RDW Coeff of Maia 14.1 (11.5-14.5) % Plt Count 124 L (130-400) K/uL MPV 10.1 (7.4-10.4) fL Immature Gran % (Auto) 0.4 % Neut % (Auto) 46.9 % Lymph % (Auto) 35.3 % [place] % (Auto) 12.1 % Eos % (Auto) 5.1 % Baso % (Auto) 0.2 % Neut # (Auto) 2.47 (1.4-6.5) K/uL Lymph # (Auto) 1.86 (1.2-3.4) K/uL [place] # (Auto) 0.64 H (0.11-0.59) K/uL Eos # (Auto) 0.27 (0-0.5) K/uL Baso # (Auto) 0.01 (0-0.2) K/uL Immature Gran # (Auto) 0.02 (0.00-0.02) K/uL PT 10.3 (9.0-12.0) Seconds INR 1.0 (0.9-1.1) APTT 23.8 (21.0-31.0) Seconds PTT Ratio 0.9 POC Sodium (135-144) mmol/L Sodium 146 H (136-145) mmol/L POC Potassium (3.3-5.0) mmol/L Potassium 3.8 (3.5-5.1) mmol/L POC Chloride (101-112) mmol/L Chloride 113 H (98-107) mmol/L Carbon Dioxide 28 (21-32) mmol/L POC Total CO2 (24-31) mmol/L Anion Gap 5.0 (3-11) POC Anion Gap (16-25) mmol/L POC BUN (7-18) mg/dl BUN 22 H (7-18) mg/dl Creatinine 0.81 (0.6-1.4) mg/dl POC Creatinine (0.6-1.3) mg/dl Est Cr Clr Drug Dosing 143.1 ml/min Est GFR ( Amer) 116.8 Est GFR (Non-Af Amer) 100.8 BUN/Creatinine Ratio 27.3 H (10-20) Glucose 88 (70-99) mg/dl POC Glucose (other) (70-99) mg/dl Calcium 9.6 (8.5-10.1) mg/dl POC Ioniz Calcium Rajwinder (1.12-1.32) mmol/l Magnesium 2.2 (1.8-2.4) mg/dl Total Bilirubin 0.4 (0.2-1) mg/dl Direct Bilirubin 0.1 (0-0.2) mg/dl AST 23 (15-37) U/L ALT 36 (12-78) U/L Alkaline Phosphatase 90 (45-117) U/L Troponin I < 0.015 (0-0.045) ng/ml NT-Pro-B Natriuret Pep 142 (0-900) pg/ml Total Protein 7.0 (6.4-8.2) gm/dl Albumin 4.3 (3.4-5.0) gm/dl Lipase 62 L (73-393) U/L COVID-19 Eval Order SARS-CoV-2, RNA, NAAT (NEGATIVE) 03/25/20 03/25/20 03/25/20 Range/Units 01:34 01:35 01:35 WBC (4.8-10.8) K/uL RBC (4.7-6.1) M/uL Hgb (14.0-18.0) g/dL POC Hgb 14.3 (14.0-18.0) g/dl Hct (42-52) % POC Hct 42 (42-52) % MCV (80-100) fL MCH (25-34) pg MCHC (32-36) g/dL RDW Std Deviation (36.4-46.3) fL RDW Coeff of Maia (11.5-14.5) % Plt Count (130-400) K/uL MPV (7.4-10.4) fL Immature Gran % (Auto) % Neut % (Auto) % Lymph % (Auto) % [place] % (Auto) % Eos % (Auto) % Baso % (Auto) % Neut # (Auto) (1.4-6.5) K/uL Lymph # (Auto) (1.2-3.4) K/uL [place] # (Auto) (0.11-0.59) K/uL Eos # (Auto) (0-0.5) K/uL Baso # (Auto) (0-0.2) K/uL Immature Gran # (Auto) (0.00-0.02) K/uL PT (9.0-12.0) Seconds INR (0.9-1.1) APTT (21.0-31.0) Seconds PTT Ratio POC Sodium 144 (135-144) mmol/L Sodium (136-145) mmol/L POC Potassium 3.6 (3.3-5.0) mmol/L Potassium (3.5-5.1) mmol/L POC Chloride 107 (101-112) mmol/L Chloride (98-107) mmol/L Carbon Dioxide (21-32) mmol/L POC Total CO2 28 (24-31) mmol/L Anion Gap (3-11) POC Anion Gap 13.0 L (16-25) mmol/L POC BUN 23 H (7-18) mg/dl BUN (7-18) mg/dl Creatinine (0.6-1.4) mg/dl POC Creatinine 0.8 (0.6-1.3) mg/dl Est Cr Clr Drug Dosing ml/min Est GFR ( Amer) Est GFR (Non-Af Amer) BUN/Creatinine Ratio (10-20) Glucose (70-99) mg/dl POC Glucose (other) 89 (70-99) mg/dl Calcium (8.5-10.1) mg/dl POC Ioniz Calcium Rajwinder 1.31 (1.12-1.32) mmol/l Magnesium (1.8-2.4) mg/dl Total Bilirubin (0.2-1) mg/dl Direct Bilirubin (0-0.2) mg/dl AST (15-37) U/L ALT (12-78) U/L Alkaline Phosphatase (45-117) U/L Troponin I (0-0.045) ng/ml NT-Pro-B Natriuret Pep (0-900) pg/ml Total Protein (6.4-8.2) gm/dl Albumin (3.4-5.0) gm/dl Lipase (73-393) U/L COVID-19 Eval [facility] SARS-CoV-2, RNA, NAAT NEGATIVE (NEGATIVE) Administered Medications Amlodipine Besylate (Amlodipine Besylate 5 Mg Tab) 2.5 mg PO DAILY [facility] Stop: 04/24/20 08:59 Last Admin: 03/25/20 07:49 Dose: 2.5 mg Documented by: [id number] Buspirone HCl (Buspirone 15 Mg Tab) 15 mg PO BID SH[facility] Stop: 04/24/20 08:59 Last Admin: 03/25/20 20:25 Dose: Not Given Documented by: [id number] Admin: 03/25/20 07:50 Dose: 15 mg Documented by: [id number] Escitalopram Oxalate (Escitalopram Oxalate 20 Mg Tab) 20 mg PO QAM [facility] Stop: 04/24/20 08:59 Last Admin: 03/25/20 07:50 Dose: 20 mg Documented by: [id number] Heparin Sodium (Porcine) (Heparin Sod 5,000 Unit/0.5 Ml Vial) 5,000 units SQ Q12 [facility] Stop: 04/24/20 20:59 Last Admin: 03/25/20 22:04 Dose: 5,000 units Documented by: [id number] Sodium Chloride (Nss 1000ml) 1,000 mls @ 125 mls/hr IV .Q8H [facility] Stop: 03/26/20 17:44 Last Admin: 03/26/20 02:38 Dose: 125 mls/hr Documented by: [id number] Infusion: 03/26/20 02:38 Dose: 125 mls/hr Documented by: [id number] Admin: 03/25/20 18:42 Dose: 125 mls/hr Documented by: [id number] Nicardipine HCl 25 mg/ Sodium (Chloride) 250 mls @ 0 mls/hr IV .Q0M SHAH[facility]; Javier col Stop: 04/24/20 18:44 Last Titration: 03/25/20 23:40 Dose: 0 mg/hr, 0 mls/hr Documented by: [id number] Titration: 03/25/20 23:36 Dose: 2.5 mg/hr, 25 mls/hr Documented by: [id number] Titration: 03/25/20 23:02 Dose: 5 mg/hr, 50 mls/hr Documented by: [id number] Cosigned by: [id number] Titration: 03/25/20 22:50 Dose: 5 mg/hr, 50 mls/hr Documented by: [id number] Cosigned by: [id number] Titration: 03/25/20 22:32 Dose: 2.5 mg/hr, 25 mls/hr Documented by: [id number] Titration: 03/25/20 19:20 Dose: 0 mg/hr, 0 mls/hr Documented by: [id number] Admin: 03/25/20 18:42 Dose: 2.5 mg/hr, 25 mls/hr Documented by: [id number] Cosigned by: [id number] Acetaminophen (Ofirmev) 1,000 mg in 100 mls @ 400 mls/hr IV Q8H PRN PRN Reason: Pain or Fever Stop: 03/28/20 23:32 Last Infusion: 03/26/20 00:04 Dose: 0 mls/hr Documented by: [id number] Admin: 03/25/20 23:42 Dose: 400 mls/hr Documented by: [id number] Valacyclovir HCl (Valacyclovir Hcl 500 Mg Tablet) 500 mg PO PM [facility] Stop: 04/24/20 20:59 Last Admin: 03/25/20 20:25 Dose: Not Given Documented by: [id number] Discontinued Medications Aspirin (Aspirin 81 Mg Chew) 324 mg PO NOW STA Stop: 03/25/20 02:23 Last Admin: 03/25/20 02:27 Dose: Not Given Documented by: [id number] Aspirin (Aspirin Chew 324 Mg) Confirm Administered Dose 324 mg .ROUTE .STK-MED ONE Stop: 03/25/20 02:27 Last Admin: 03/25/20 02:27 Dose: 324 mg Documented by: [id number] Clopidogrel Bisulfate (Clopidogrel Bisulfate 75 Mg Tab) 75 mg PO NOW STA Stop: 03/25/20 03:54 Last Admin: 03/25/20 03:58 Dose: 75 mg Documented by: [id number] Clopidogrel Bisulfate (Clopidogrel Bisulfate 300 Mg Tab) 300 mg PO NOW ONE Stop: 03/25/20 16:16 Last Admin: 03/25/20 16:15 Dose: 300 mg Documented by: [id number] Clopidogrel Bisulfate (Clopidogrel Bisulfate 75 Mg Tab) 225 mg PO NOW ONE Stop: 03/25/20 16:16 Last Admin: 03/25/20 16:15 Dose: 225 mg Documented by: [id number] Hydralazine HCl (Hydralazine Hcl 20 Mg/Ml Vial) 5 mg IV NOW ONE Stop: 03/25/20 23:22 Last Admin: 03/26/20 01:33 Dose: 5 mg Documented by: [id number] Potassium Chloride/Sodium Chloride (1/2 Nss + 20meq Kcl 1000ml) 20 meq in 1,000 mls @ 50 mls/hr IV .Q20H ONE Stop: 03/26/20 01:22 Last Infusion: 03/26/20 03:44 Dose: 0 mls/hr Documented by: [id number] Admin: 03/25/20 07:51 Dose: 50 mls/hr Documented by: [id number] Ioversol (Optiray 320 125ml) 125 ml IV ONCE ONE Stop: 03/25/20 01:55 Last Admin: 03/25/20 01:55 Dose: 115 ml Documented by: [id number] Ioversol (Optiray 320 125ml) 119 ml IV ONCE ONE Stop: 03/25/20 17:37 Last Admin: 03/25/20 17:36 Dose: 119 ml Documented by: [id number] Labetalol HCl (Labetalol Hcl Iv 5 Mg/Ml 20ml) 10 mg IV NOW STA Stop: 03/25/20 01:33 Last Admin: 03/25/20 01:51 Dose: 10 mg Documented by: [id number] Cosigned by: [id number] Labetalol HCl (Labetalol Hcl Iv 5 Mg/Ml 20ml) 10 mg IV NOW STA Stop: 03/25/20 02:21 Last Admin: 03/25/20 02:23 Dose: 10 mg Documented by: [id number] Cosigned by: [id number] Labetalol HCl (Labetalol Hcl Iv 5 Mg/Ml 20ml) 20 mg IV NOW STA Stop: 03/25/20 18:01 Last Admin: 03/25/20 18:05 Dose: 20 mg Documented by: [id number] Cosigned by: [id number] Labetalol HCl (Labetalol Hcl Iv 5 Mg/Ml 20ml) Confirm Administered Dose 5 mg IV .STK-MED ONE Stop: 03/25/20 18:02 Last Admin: 03/25/20 18:51 Dose: Not Given Documented by: [id number] Labetalol HCl (Labetalol Hcl Iv 5 Mg/Ml 20ml) 10 mg IV NOW STA Stop: 03/25/20 21:44 Last Admin: 03/25/20 22:03 Dose: 10 mg Documented by: [id number] Cosigned by: [id number] Perflutren Lipid Microsphere (Perflutren Lipid Microsphere (Definity)) 2 ml IV ONCE ONE Stop: 03/25/20 07:38 Last Admin: 03/25/20 07:37 Dose: 2 ml Documented by: [id number] Discharge Plan Visit Data Chief Complaint: Neuro Symptoms/Deficit Stated Complaint: NEURO SYMPTOMS ED Provider: Jose Karimi Discharge Problem: Acute right-sided weakness, Hypertensive urgency Patient Disposition: Admitted As Inpatient Discharge Instructions Interventions: ED Discharge Assessment Last Done: 03/25/20 04:32
[2020-03-25 01:47] LABS: Basophils # (auto) 0.01 K/uL (0-0.2); Basophils % (auto) 0.2 %; Eosinophils # (auto) 0.27 K/uL (0-0.5); Eosinophils % (auto) 5.1 %; Hematocrit (blood only) 40.7 % (42-52); Hemoglobin 14.2 g/dL (14.0-18.0); Immature Granulocytes # (auto) 0.02 K/uL (0.00-0.02); Immature Granulocytes % (auto) 0.4 %; Lymphocytes # (auto) 1.86 K/uL (1.2-3.4); Lymphocytes % (auto) 35.3 %; Mean Corpuscular Hemoglobin 30.5 pg (25-34); Mean Corpuscular Hgb Conc 34.9 g/dL (32-36); Mean Corpuscular Volume 87.5 fL (80-100); Mean Platelet Volume 10.1 fL (7.4-10.4); Monocytes # (auto) 0.64 K/uL (0.11-0.59); Monocytes % (auto) 12.1 %; Neutrophils # (auto) 2.47 K/uL (1.4-6.5); Neutrophils % (auto) 46.9 %; Platelet Count 124 K/uL (130-400); RDW Coefficient of Variation 14.1 % (11.5-14.5); RDW Standard Deviation 44.9 fL (36.4-46.3); Red Blood Count 4.65 M/uL (4.7-6.1); White Blood Count 5.27 K/uL (4.8-10.8)
[2020-03-25 01:48] LABS: iSTAT Creatinine 0.8 mg/dl (0.6-1.3); iSTAT Hemoglobin 14.3 g/dl (14.0-18.0); iSTAT Ionized Calcium 1.31 mmol/l (1.12-1.32); iSTAT Potassium 3.6 mmol/L (3.3-5.0)
[2020-03-25] MEDS ORDERED: OPTIRAY 320 125ml IV ONE ×2 (01:54→17:36)
[2020-03-25 01:55] LABS: Alanine Aminotransferase 36 U/L (12-78); Albumin Level 4.3 gm/dl (3.4-5.0); Aspartate Aminotransferase 23 U/L (15-37); BUN Creatinine Ratio 27.3 (10-20); Bilirubin Direct 0.1 mg/dl (0-0.2); Blood Urea Nitrogen 22 mg/dl (7-18); Calcium 9.6 mg/dl (8.5-10.1); Carbon Dioxide 28 mmol/L (21-32); Chloride 113 mmol/L (98-107); Creatinine Clr Calc Pharmacy 143.1 ml/min; Est GFR (African American) 116.8; Est GFR (Non-African American) 100.8; Glucose 88 mg/dl (70-99); Lipase 62 U/L (73-393); Magnesium 2.2 mg/dl (1.8-2.4); Potassium 3.8 mmol/L (3.5-5.1); Sodium 146 mmol/L (136-145)
[2020-03-25 02:02] LABS: Partial Thromboplastin Ratio 0.9; Partial Thromboplastin Time 23.8 Seconds (21.0-31.0); Prothrombin Time 10.3 Seconds (9.0-12.0)
[2020-03-25 02:13] LABS: Alkaline Phosphatase 90 U/L (45-117); Bilirubin,Total 0.4 mg/dl (0.2-1); Troponin I < 0.015 ng/ml (0-0.045)
[2020-03-25] MEDS ORDERED: ASPIRIN 81 MG CHEW PO STA (02:22)
[2020-03-25] MEDS ORDERED: ASPIRIN CHEW 324 MG ONE (02:26)
--- NOTE | 2020-03-25 03:45 | History & Physical Report ---
Date of Service March 25, 2020 Assessment & Plan (1) TIA (transient ischemic attack): ? 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 MRI brain, TTE RE TIA work-up Neurology consult RE TIA Permissive hypertension until stroke ruled out DVT prophylaxis. SCDs Re: Thrombocytopenia Full code Text document was generated using [employer] voice recognition software. It may contain grammatical or spelling errors. Kindly contact undersigned for clarification of any documentation item in question. History of Present Illness Primary Care Provider: Melissa Acuna DO History obtained from patient and records. 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 Last confinement August 2019 for right lower lobe pneumonia. Patient was getting some food from the refrigerator at his home around midnight when he noted sudden onset right arm, right leg, right facial droop. No headache, no chest pain, no S OB. Patient compliant with home aspirin. Symptoms resolved after 30 minutes. Patient brought to ER by EMS. MEDICAL HISTORY: As above. SURGICAL HISTORY: 1. Lung biopsy. 2. Lobectomy procedure. 3. A-Port placement. 4. Ear surgery FAMILY HISTORY: There is a family history of lymphoma. PERSONAL SOCIAL HISTORY: Nonsmoker. 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 Allergies Allergy/AdvReac Type Severity Reaction Status Date / Time No Known Allergies Allergy Verified 03/25/20 02:19 Home Medications Medication Instructions Recorded Confirmed Type aspirin 81 mg PO QAM 03/15/18 03/25/20 History valacyclovir [Valtrex] 500 mg PO PM 03/15/18 03/25/20 History albuterol sulfate [Ventolin HFA] 2 puff INHALATION Q6H PRN 06/30/19 03/25/20 History buspirone 15 mg tablet 15 mg PO BID 09/30/19 03/25/20 History escitalopram oxalate 20 mg tablet 20 mg PO QAM 09/30/19 03/25/20 History ipratropium 0.5 mg-albuterol 3 mg 3 ml INHALATION Q4H PRN 12/03/19 03/25/20 History (2.5 mg base)/3 mL nebulization soln ibuprofen [Motrin IB] 600 mg PO Q6H PRN 02/24/20 03/25/20 History amlodipine 10 mg PO DAILY 03/25/20 03/25/20 History Past Med/Surg History Medical History Anxiety Asthma "well controlled" Carpal tunnel syndrome 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 Bustillos 02/11/2020 Thrombocytopenia chronic thrombocytopenia dating back to at least 02/2018, baseline plts 80's- low 100's range per chart review, most recent plt level 109 02/05/20 Surgical History History of colonoscopy History of lobectomy of lung RML > 2002 History of removal of Port-a-Cath Hx of lymph node excision right neck and right axillary S/P lymph node biopsy (02/11/20) Right Supracalvicular Lymph Node Biopsy Dr. Bustillos 02/11/2020 Family History Brother Cancer Hodgkin's lymphoma Other Diabetes Social History Smoking Status: Never smoker Second Hand Exposure: No; Hx Alcohol Use: Yes Alcohol type: wine Hx Substance Use: No Preferred Language: Greek Communication Ability: Effective Lean Manufacturing Engineer Required: No Beliefs That Will Affect Care: None Current Living Situation: Significant Other Feels Safe at Home: Yes Assistive Devices: Glasses Review of Systems Review of Systems: As per HPI, all 10 systems reviewed, all other ROS negative Physical Exam Physical Exam: GENERAL: Comfortable, pleasant, morbidly obese, no respiratory distress SKIN: Normal color, warm HEENT: Alopecia, Cactus palpebral conjunctivae, no ptosis, dry buccal mucosa NECK : Supple, short neck, no tenderness, nontender cervical adenopathy CHEST : CTA, no tenderness HEART : RRR, no obvious murmurs ABDOMEN: Some distention, nontender EXTREMITIES : Minimal LE swelling, no LE tenderness, no other conspicuous deformities noted NEUROLOGIC : Coherent, no facial asymmetry, no pronator drift, no other gross focality Results & Data Results & Data ([facility]) Vital Signs (Past 12 Hours) Vital Signs Temp Pulse Pulse Resp BP BP Pulse Ox 03/25/20 03:33 75 20 171/79 H 97 03/25/20 03:13 76 20 158/80 H 96 03/25/20 02:31 76 20 176/91 H 97 03/25/20 02:15 77 20 180/110 H 97 03/25/20 01:58 78 20 183/89 H 95 03/25/20 01:38 36.8 C 84 20 210/116 H 98 Laboratory Results Laboratory Results WBC 5.27 K/uL (4.8-10.8) 03/25/20 01:08 RBC 4.65 M/uL (4.7-6.1) L 03/25/20 01:08 Hgb 14.2 g/dL (14.0-18.0) 03/25/20 01:08 POC Hgb 14.3 g/dl (14.0-18.0) 03/25/20 01:34 Hct 40.7 % (42-52) L 03/25/20 01:08 POC Hct 42 % (42-52) 03/25/20 01:34 MCV 87.5 fL (80-100) 03/25/20 01:08 MCH 30.5 pg (25-34) 03/25/20 01:08 MCHC 34.9 g/dL (32-36) 03/25/20 01:08 RDW Std Deviation 44.9 fL (36.4-46.3) 03/25/20 01:08 RDW Coeff of Maia 14.1 % (11.5-14.5) 03/25/20 01:08 Plt Count 124 K/uL (130-400) L 03/25/20 01:08 MPV 10.1 fL (7.4-10.4) 03/25/20 01:08 Immature Gran % (Auto) 0.4 % 03/25/20 01:08 Neut % (Auto) 46.9 % 03/25/20 01:08 Lymph % (Auto) 35.3 % 03/25/20 01:08 [place] % (Auto) 12.1 % 03/25/20 01:08 Eos % (Auto) 5.1 % 03/25/20 01:08 Baso % (Auto) 0.2 % 03/25/20 01:08 Neut # (Auto) 2.47 K/uL (1.4-6.5) 03/25/20 01:08 Lymph # (Auto) 1.86 K/uL (1.2-3.4) 03/25/20 01:08 [place] # (Auto) 0.64 K/uL (0.11-0.59) H 03/25/20 01:08 Eos # (Auto) 0.27 K/uL (0-0.5) 03/25/20 01:08 Baso # (Auto) 0.01 K/uL (0-0.2) 03/25/20 01:08 Immature Gran # (Auto) 0.02 K/uL (0.00-0.02) 03/25/20 01:08 PT 10.3 Seconds (9.0-12.0) 03/25/20 01:08 INR 1.0 (0.9-1.1) 03/25/20 01:08 APTT 23.8 Seconds (21.0-31.0) 03/25/20 01:08 PTT Ratio 0.9 03/25/20 01:08 POC Sodium 144 mmol/L (135-144) 03/25/20 01:34 Sodium 146 mmol/L (136-145) H 03/25/20 01:08 POC Potassium 3.6 mmol/L (3.3-5.0) 03/25/20 01:34 Potassium 3.8 mmol/L (3.5-5.1) 03/25/20 01:08 POC Chloride 107 mmol/L (101-112) 03/25/20 01:34 Chloride 113 mmol/L (98-107) H 03/25/20 01:08 Carbon Dioxide 28 mmol/L (21-32) 03/25/20 01:08 POC Total CO2 28 mmol/L (24-31) 03/25/20 01:34 Anion Gap 5.0 (3-11) 03/25/20 01:08 POC Anion Gap 13.0 mmol/L (16-25) L 03/25/20 01:34 POC BUN 23 mg/dl (7-18) H 03/25/20 01:34 BUN 22 mg/dl (7-18) H 03/25/20 01:08 Creatinine 0.81 mg/dl (0.6-1.4) 03/25/20 01:08 POC Creatinine 0.8 mg/dl (0.6-1.3) 03/25/20 01:34 Est Cr Clr Drug Dosing 143.1 ml/min 03/25/20 01:08 Est GFR ( Amer) 116.8 03/25/20 01:08 Est GFR (Non-Af Amer) 100.8 03/25/20 01:08 BUN/Creatinine Ratio 27.3 (10-20) H 03/25/20 01:08 Glucose 88 mg/dl (70-99) 03/25/20 01:08 POC Glucose (other) 89 mg/dl (70-99) 03/25/20 01:34 Calcium 9.6 mg/dl (8.5-10.1) 03/25/20 01:08 POC Ioniz Calcium Rajwinder 1.31 mmol/l (1.12-1.32) 03/25/20 01:34 Magnesium 2.2 mg/dl (1.8-2.4) 03/25/20 01:08 Total Bilirubin 0.4 mg/dl (0.2-1) 03/25/20 01:08 Direct Bilirubin 0.1 mg/dl (0-0.2) 03/25/20 01:08 AST 23 U/L (15-37) 03/25/20 01:08 ALT 36 U/L (12-78) 03/25/20 01:08 Alkaline Phosphatase 90 U/L (45-117) 03/25/20 01:08 Troponin I < 0.015 ng/ml (0-0.045) 03/25/20 01:08 Total Protein 7.0 gm/dl (6.4-8.2) 03/25/20 01:08 Albumin 4.3 gm/dl (3.4-5.0) 03/25/20 01:08 Lipase 62 U/L (73-393) L 03/25/20 01:08 COVID-19 Eval Order Cov[facility] 03/25/20 01:35 SARS-CoV-2, RNA, NAAT NEGATIVE (NEGATIVE) 03/25/20 01:[address] angio head with and without initial read: No intracranial hemorrhage, mass-effect, or edema. No grossly evident acute infarct. No rectal occlusion, high-grade stenosis, aneurysm or dissection. Maxillary sinus disease. CTA neck initial read: No acute occlusion, high-grade stenosis, aneurysm or dissection. Extensive adenopathy suggestive of lymphoma. Chest x-ray as per my trepidation vascular prominence EKG as per my interpretation : Rate 80, NSR, normal axis, no ischemia
[2020-03-25 03:49] LABS: NT Pro B Type Natriuretic Pept 142 pg/ml (0-900)
[2020-03-25] MEDS ORDERED: CLOPIDOGREL BISULFATE 75 MG TAB PO STA (03:53)
[2020-03-25] MEDS ORDERED: SODIUM CHLOR 0.45% + 20MEQ KCL 20 MEQ/1,000 ML BAG IV ONE (05:23)
[2020-03-25] MEDS ORDERED: LORazepam 0.5 MG/1 ML VIAL IV PRN (05:23)
[2020-03-25] MEDS ORDERED: PROMETHAZINE HCL 12.5 MG in SODIUM CHLORIDE 0.9% 50 ML IV PRN (05:23)
[2020-03-25] MEDS ORDERED: ALBUT/IPRATROP 3MG/0.5MG NEB 3 ML VIAL INH PRN (05:23)
--- NOTE | 2020-03-25 07:07 | Magnetic Resonance Report ---
MR brain wo con HISTORY: 54 years-old Male tia acute strokelike symptoms. History of lymphoma COMPARISON: CT head 02/24/2020, CTA head and neck 03/25/2020, brain MRI 09/20/2019 TECHNIQUE: Multiplanar multisequence MRI of the brain was obtained without the use of IV contrast. FINDINGS: Pest Technician localizer images demonstrate no gross extracranial abnormality. There is no restricted diffusio n to suggest acute or subacute infarct. No acute intracranial hemorrhage, midline shift, abnormal ext ra-axial collection, hydrocephalus or intracranial mass. No pathologic blooming artifact on the T2 st ar series. Mild patchy T2/FLAIR hyperintensities are noted throughout the white matter of the bilater al cerebral hemispheres, possibly reflective of minimal chronic microvascular ischemic disease. Cerebral venous sinuses and major arterial flow voids at the level the skull base appear patent. Mode rate left and severe right mucosal thickening of the maxillary sinuses. Moderate mucosal thickening o f the ethmoid air cells. Prominent bilateral posterior cervical chain lymph nodes measure up to 8-9 m m. Soft tissue nodule of the superficial lobe right parotid gland is new from prior measuring 1.7 x 1 .4 cm. IMPRESSION: 1. No acute intracranial abnormality, specifically there is no evidence of acute or subacute infarct. 2. Prominent posterior chain cervical lymph nodes with soft tissue nodule of the right parotid gland suggestive of a pathologic lymph node measuring 1.7 x 1.4 cm. Findings are likely secondary to patien t's underlying known lymphoma. 3. Paranasal sinus disease as above. ACT 112: Negative or not required by law. The above report was generated using voice recognition software. It may contain grammatical, syntax o r spelling errors. Electronically signed by: Clinton Cheng M.D. 03/25/2020 7:05 AM
--- NOTE | 2020-03-25 07:24 | CT Scan Report ---
CT angio neck with con, CT angio head wo/w CLINICAL HISTORY: 54 years-old Male with right sided weakness resolved. Acute strokelike symptoms COMPARISON STUDY: Brain MRI same day, CTA chest 02/24/2020, CTA head and neck 04/04/2018 TECHNIQUE: Following the IV administration of 115 mL of Optiray 320, CT angiogram of the head and nec k was performed from the aortic arch to the skull apex. Images are reviewed in the axial, sagittal, a nd coronal planes. 3-D MIPS images are created and assessed. IV contrast was administered without com plication. All measurements were calculated based on NASCET criteria. Additionally, noncontrast head CT was obtained. A dose lowering technique was utilized adhering to the principles of ALARA. CT DOSE: 1407.81 mGy.cm FINDINGS: CT HEAD: No acute intracranial hemorrhage, midline shift, abnormal extra axial collection, hydrocephalus, acut e territorial infarct or intracranial mass. No calvarial fracture. Mucosal thickening of the right gr eater than left maxillary sinuses. Mastoid air cells are clear. The soft tissues and orbits are unrem arkable. CTA HEAD AND NECK: The imaged opacified pulmonary arterial tree is unremarkable. Three-vessel morphology of the thoracic aortic arch. Patency of the imaged innominate and subclavian arteries. Patent common carotid arterie s. Mild mixed plaque of the bilateral carotid bulbs and proximal cervical segments of the internal ca rotid arteries, left greater than right. Mild calcified plaque of the cavernous and supraclinoid segm ents. The middle and anterior cerebral arteries are patent. Codominant and widely patent vertebral ar teries. The basilar and posterior cerebral arteries are patent. Cerebral venous sinuses are patent. T here is no abnormal intracranial enhancement. Extensive adenopathy of the chest and neck has progressively worsened from the 02/24/2020 exam. Index r ight paratracheal lymph node measures 3.1 x 2.0 cm, previously 2.3 x 1.7 cm. Pathologically enlarged axillary chain, subpectoral and supraclavicular lymph nodes are present in addition to numerous enlar ged lymph nodes of the bilateral cervical chains and bilateral parotid lobes. Partially imaged 10 mm nodular opacity of the right lung on image 1 series 6 is unchanged suggestive of scarring. No pneumothorax. Several periapical cysts and dental caries are noted. Degenerative prater ges of the spine. Mucoperiosteal thickening is noted, most pronounced in the maxillary sinuses. IMPRESSION: 1. No acute intracranial abnormality. 2. Unremarkable CTA of the head and neck without aneurysm, dissection, high-grade stenosis or proxima l branch occlusion. 3. Extensive lymphadenopathy of the neck and imaged upper chest compatible with patient's known diagn osis of lymphoma. The adenopathy within the mediastinum has progressively worsened from the compariso n 02/24/2020 exam. ACT 112: Negative or not required by law. The above report was generated using voice recognition software. It may contain grammatical, syntax o r spelling errors. Electronically signed by: Clinton Cheng M.D. 03/25/2020 7:23 AM
[2020-03-25] MEDS ORDERED: PERFLUTREN LIPID MICROSPHERE (DEFINITY) IV ONE (07:37)
--- NOTE | 2020-03-25 07:39 | XRay Report ---
XR chest 1V portable HISTORY: Stroke symptoms. COMPARISON: Chest 02/24/2020. FINDINGS: Cardiac silhouette remains top normal in size. There is diffusely elevated interstitium wit hout focal lung consolidations to suggest pneumonia. This remains unchanged. No pleural effusions. No pneumothorax. No evidence for pulmonary edema. Left subclavian Port-A-Cath terminates at the right a trium. This is unchanged in position. IMPRESSION: No significant change compared to the prior study. No acute process. ACT 112: Negative or not required by law. Electronically signed by: Wander Samano M.D. 03/25/2020 7:38 AM
[2020-03-25] MEDS: amLODIPine BESYLATE 5 MG TAB PO SCH (07:49)
[2020-03-25] MEDS: ESCITALOPRAM OXALATE 20 MG TAB PO SCH (07:50)
[2020-03-25] MEDS: busPIRone 15 MG TAB PO SCH ×2 (07:50→20:25)
--- NOTE | 2020-03-25 14:31 | Communication Note ---
Date of Service: March 25, 2020 Is a 54-year-old obese male with significant past medical history of Hodgkin's lymphoma status post chemotherapy, hypertension and hyperlipidemia was admitted with TIA While taking out some food from the refrigerator at home at around midnight he felt sudden onset of right arm, right leg and right facial droop without any other neurological symptoms The symptoms lasted for about 30 minutes and did not have any more recurrence since then He does not have any neurological symptoms during my examination today He remained hemodynamically stable with blood pressure on the upper side His physical and neurological examinations remain unremarkable His relevant investigations including CTA of the head and neck, MRI and echocardiogram remain unremarkable Waiting to be seen by neurologist before he can be discharged home today Detailed progress note will be done tomorrow. Dr Yari Leal
--- NOTE | 2020-03-25 15:13 | Neurology Consultation ---
Date of Consultation March 25, 2020 Assessment & Plan (1) TIA (transient ischemic attack): 1. MRI with no evidence of stroke- recurrent symptoms at 1549 today will need to repeat MRI non contrast tomorrow 2. plavix 75 mg started with aspirin 81 mg - will load plavix due to the recurrent symptoms 3. optimize HTN HLD, DM LDL <70 4. PT/OT for discharge needs Present on Admission?: Yes (2) Acute right-sided weakness: 1. recurrent clumsy on right and slurred speech. (3) Hypertensive urgency: 1. bring blood pressure down slowly- still having hypertension and tingling in the right hand, articulation issues 2. monitor over night - evaluate again tomorrow for resolve of symptoms Present on Admission?: Yes Supervising Physician Co-Signing Physician Notes I have seen and discussed above patient with Dr Danny Snyder, neurology I have seen Mr Churchill today shortly after he was evaluated by Michelle Quezada PA-C and found him to be suddenly different with word finding deficits and complaints of paresthesias involving the right hand and some clumsiness of rapid repetitive motion of the right arm some paresthesias in the leg. He was clearly having another transient ischemic attack. Michelle Quezada returned to the bedside shortly after me and at that point he was beginning to improve but we may be in for a series of small vessel or presumptive small vessel TIAs affecting I suspect the perithalamic region on the left which would be a good anatomic explanation for his presentation. Certainly an event in the ventral brainstem could produce a similar problem and at this point we are simply going to load him up with Plavix, continue the aspirin observe him, let his blood pressure be somewhat elevated in the permissive range and get a noncontrast MRI in the morning Evaluation so far has indicated no cardiogenic source of emboli and no significant extracranial vascular disease and frankly the MRI does not show any significant prior small vessel events either but he is hypertensive, his Hodgkin's lymphoma seems to be entering a more aggressive phase as possible he does have a nonspecific coagulability superimposed upon hypertension but this is not reported in lymphomas that often and the issue is academic as I think th at dual antiplatelet therapy for 3 weeks is really what we can offer at this point We will be back obviously tomorrow looking over will be reviewing the chart for office by computer Danny Snyder MD History of Present Illness Reason for Consultation: TIA Requesting Physician: Malini Leal MD Attending Physician: Malini Leal MD History of Present Illness Deonte is a 54 year old left handed male with history of Hodgkin's Lymphoma, GERD, COPD. He presented to the [facility] ED with acute right sided weakness which resolved prior to arrival. His SBP was [address] head neck angio obtained without acute findings. Labs with thrombocytopenia (chronic) otherwise unremarkable. He had surgery to removed a port on the right and placement on the left of a new port. He also had excision of a right supra clavicular lymph node which was consistent with Hodgkins lymphoma. He was on aspirin 81 mg prior to admission. the incident happened around 12M when he tried to get a drink and his right side "went out". His girlfriend got him a chair to sit on and he thinks it lasted about 10 minutes. His girlfriend called 911 and the EMG put him on 10 L O2 which he thinks helped. denies CP, SOB, abdominal pain, current one sided weakness, numbness tingling, falls, headache, vision changes. Allergies Allergy/AdvReac Type Severity Reaction Status Date / Time No Known Allergies Allergy Verified 03/25/20 02:19 Home Medications Medication Instructions Recorded Confirmed Type aspirin 81 mg PO QAM 03/15/18 03/25/20 History valacyclovir [Valtrex] 500 mg PO PM 03/15/18 03/25/20 History albuterol sulfate [Ventolin HFA] 2 puff INHALATION Q6H PRN 06/30/19 03/25/20 History buspirone 15 mg tablet 15 mg PO BID 09/30/19 03/25/20 History escitalopram oxalate 20 mg tablet 20 mg PO QAM 09/30/19 03/25/20 History ipratropium 0.5 mg-albuterol 3 mg 3 ml INHALATION Q4H PRN 12/03/19 03/25/20 History (2.5 mg base)/3 mL nebulization soln ibuprofen [Motrin IB] 600 mg PO Q6H PRN 02/24/20 03/25/20 History amlodipine 10 mg PO DAILY 03/25/20 03/25/20 History Patient History Medical History Anxiety Asthma "well controlled" Carpal tunnel syndrome 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 Bustillos 02/11/2020 Thrombocytopenia chronic thrombocytopenia dating back to at least 02/2018, baseline plts 80's- low 100's range per chart review, most recent plt level 109 02/05/20 Surgical History History of colonoscopy History of lobectomy of lung RML > 2002 History of removal of Port-a-Cath Hx of lymph node excision right neck and right axillary S/P lymph node biopsy (02/11/20) Right Supracalvicular Lymph Node Biopsy Dr. Bustillos 02/11/2020 Family History Brother Cancer Hodgkin's lymphoma Other Diabetes Social History Smoking Status: Never smoker Second Hand Exposure: No; Do You Dip or Chew Tobacco: No; Tobacco Cessation Education Requested by Patient: No Hx Alcohol Use: Yes Alcohol type: wine Hx Substance Use: No Preferred Language: Cuban Communication Ability: Effective Import Clerk Required: No Beliefs That Will Affect Care: None Current Living Situation: Significant Other Other Information That Helps Us Care for You: No Feels Safe at Home: Yes Safety Concerns: Feels Safe At This Time Review of Systems Review of Systems: All systems reviewed & are unremarkable except as noted in HPI & below and All systems reviewed & are unremarkable except as noted in Subjective Physical Exam Physical Exam: Physical Exam: Constitutional: appearance over nourished Ears, Nose, Mouth and Throat: mucous membranes moist, no injection and skin normal, eyes normal Cardiovascular: normal S-1 and S-2 and regular rate and rhythm Respiratory: clear to auscultation (CTA) and no rales, ronchi or wheeze Musculoskeletal: no peripheral edema and good distal pulses Skin: no stigmata of neurocutaneous disease noted and normal and intact Eyes: extraocular muscles intact (EOMI) and pupils equal, round and reactive to light (PERRL) NEUROLOGIC EXAMINATION: Mental status: Alert and interactive Oriented to full date and location Oriented to person Speech fluent with no evidence of aphasia Cranial Nerves Normal findings for Cranial Nerves II - XII Reflexes: Deep tendon reflexes were symmetrical and graded 2/5. down going toes Sensory: light cool touch intact Coordination: finger to nose heel to paulino rapid hand movements Gait/Stance: Posture normal. Gait normal: with steady with steps, tandem gait. Motor: Negative for pronator drift of out stretched arms with eyes closed. Strength: hand print manager biceps triceps 5/5 bilaterally, hip flex plantar flex ext 5/5 addendum :recurrent symptoms- slight slurring of speech can say no ifs ands or buts, dysmetric right hand rapid hand movement, no facial droop- 1555, subjective numbness right hand Results & Data ([facility]) Vital Signs (Past 12 Hours) Vital Signs Temp Pulse Resp BP BP Pulse Ox 03/25/20 11:14 36.6 C 83 18 178/76 H 92 03/25/20 07:47 36.7 C 82 18 173/88 H 94 03/25/20 05:04 36.4 C L 85 18 202/86 H 94 03/25/20 04:10 79 20 166/83 H 97 03/25/20 03:33 75 20 171/79 H 97 Laboratory Results Abnormal lab results 03/25/20 03/25/20 03/25/20 Range/Units 01:08 01:08 01:34 RBC 4.65 L (4.7-6.1) M/uL Hct 40.7 L (42-52) % Plt Count 124 L (130-400) K/uL Morris # (Auto) 0.64 H (0.11-0.59) K/uL Sodium 146 H (136-145) mmol/L Chloride 113 H (98-107) mmol/L POC Anion Gap 13.0 L (16-25) mmol/L POC BUN 23 H (7-18) mg/dl BUN 22 H (7-18) mg/dl BUN/Creatinine Ratio 27.3 H (10-20) Lipase 62 L (73-393) U/L Diagnostic Findings CTA head/neck- No acute intracranial abnormality. Unremarkable CTA of the head and neck without aneurysm, dissection, high-grade stenosis or proximal branch occlusion. Extensive lymphadenopathy of the neck and imaged upper chest david tible with patient's known diagnosis of lymphoma. The adenopathy within the mediastinum has progressively worsened from the comparison 02/24/2020 exam. MRI brain-No acute intracranial abnormality, specifically there is no evidence of acute or subacute infarct. Prominent posterior chain cervical lymph nodes with soft tissue nodule of the right parotid gland suggestive of a pathologic lymph node measuring 1.7 x 1.4 cm. Findings are likely secondary to patient's underlying known lymphoma. Paranasal sinus disease as above. TTE-EF 60-65 % no ASD
[2020-03-25] MEDS ORDERED: CLOPIDOGREL BISULFATE 300 MG TAB PO ONE ×2 (16:00→16:15)
--- NOTE | 2020-03-25 16:03 | Electrocardiogram Report ---
Test Reason : Blood Pressure : / mmHG Vent. Rate : 078 BPM Atrial Rate : 078 BPM P-R Int : 164 ms QRS Dur : 086 ms QT Int : 362 ms P-R-T Axes : 063 034 016 degrees QTc Int : 412 ms Sinus rhythm with Premature atrial complexes Otherwise normal ECG When compared with ECG of 24-FEB-2020 16:53, Premature atrial complexes are now Present Confirmed by Feroz Jones ([id number]) on 03/25/2020 4:03:49 PM Referred By: REFERRED SELF Confirmed By:Feroz Jones
--- NOTE | 2020-03-25 16:07 | Communication Note ---
Date of Service: March 25, 2020 Attending addendum; He was noted to have an episode of right-sided numbness and tingling involving the face and the right upper extremity mainly but not too much of the right lower extremity. Denies any other symptoms. Remain hemodynamically stable and neuro examination revealed minimal weakness involving the right upper extremity and no facial droop. Was seen by the neurologist and was advised to give loading dose of Plavix of 600 mg an MRI tomorrow Received 75 mg Plavix in the morning and will give additional 525 mg to complete 6 and a milligram of dose as of today. Will not be discharged this afternoon DR Yari Leal
[2020-03-25] MEDS ORDERED: CLOPIDOGREL BISULFATE 75 MG TAB PO ONE (16:15)
--- NOTE | 2020-03-25 17:35 | CT Scan Report ---
CT OF THE HEAD WITHOUT CONTRAST CLINICAL HISTORY: r/o cva COMPARISON STUDY: Head CT, CTA of the head and MRI of the brain performed earlier today. CT DOSE: 1048.27 mGy.cm TECHNIQUE: Helical axial images of the head were obtained without IV contrast. Automated exposure con trol was utilized for the study. A dose lowering technique was utilized adhering to the principles o f ALARA. FINDINGS: No acute intracranial hemorrhage, midline shift or mass effect is present. The ventricular system is unremarkable. The basal cisterns are patent. No extra-axial collections are present. There are no findings to suggest acute dural sinus thrombosis or acute territorial infarct. No significant calvarial abnormalities are present. Right maxillary sinus is opacified. There is moderate mucosal th ickening of the left maxillary and ethmoid sinuses.. Enlarged upper cervical lymph nodes are better d epicted on the CTA of the head and neck performed earlier today. IMPRESSION: No acute intracranial findings. ACT 112: Negative or not required by law. Electronically signed by: Rangel Muniz M.D. 03/25/2020 5:34 PM
[2020-03-25] MEDS ORDERED: LABETALOL HCL IV 5 MG/ML 20ML IV ONE (18:01)
--- NOTE | 2020-03-25 18:12 | CT Scan Report ---
CT ANGIOGRAPHY OF THE NECK WITH CONTRAST CLINICAL HISTORY: r/o stroke COMPARISON STUDY: CTA of the neck March 25, 2020 at 1:45 AM. Technique: CT angiography of the carotid and vertebral arteries was obtained using BalzoraClearbon 320 IV and 3D reconstruction on an independent workstation. NASCET criteria was utilized. Automated exposure c ontrol was utilized for the study. A dose lowering technique was utilized adhering to the principles of ALARA. Findings: Extensive mediastinal, axillary and cervical lymphadenopathy is noted as described on prior CTA. Lung apices are clear. No acute cervical spinal fracture is noted. The bilateral common carotid , cervical internal carotid and vertebral arteries are patent. There is no intraluminal thrombus with in these vessels. No stenosis or dissection is noted. There is no aneurysm within the neck. CTA of th e head will be reported separately. Minimal atherosclerotic plaque is noted within these vessels. IMPRESSION: 1. No stenosis or dissection within the major vessels of the neck. 2. Extensive mediastinal, axillary and cervical lymphadenopathy as described on prior CTA. This is co nsistent with known lymphoma. ACT 112: Negative or not required by law. Electronically signed by: Rangel Muniz M.D. 03/25/2020 6:11 PM
--- NOTE | 2020-03-25 18:15 | CT Scan Report ---
CTA ANGIOGRAPHY OF THE HEAD CLINICAL HISTORY: r/o stroke COMPARISON STUDY: CTA of the head March 25, 2020 at 1:45 AM. MRI of the brain March 25, 2020. TECHNIQUE: Helical axial images of the head were obtained following uneventful intravenous administr ation of 119 cc of Optiray 320. Sagittal and coronal reconstructions were viewed as well as maximal i ntensity projections on an independent 3-D workstation. Automated exposure control was utilized for the study. A dose lowering technique was utilized adhering to the principles of ALARA. CT DOSE: 923.91 mGy.cm FINDINGS: Extensive cervical lymphadenopathy is better depicted on the CTA of the neck. Right maxilla ry sinus is opacified. There is moderate mucosal thickening of the left maxillary and ethmoid sinuses . No acute calvarial fracture is present. The bilateral M1, M2, A1 and A2 segments are patent. There is no intraluminal thrombus. No central vessel occlusion is noted. There is mild plaque within bilate ral cavernous carotids without stenosis. The posterior circulation is intact. There is no intracrania l aneurysm. Major dural sinuses appear patent. IMPRESSION: No central vessel occlusion. No intracranial aneurysm. Patent vessels. ACT 112: Negative or not required by law. Electronically signed by: Rangel Muniz M.D. 03/25/2020 6:14 PM
[2020-03-25] MEDS ORDERED: STAT IV Infusion **Titration per Protocol STA (18:29)
[2020-03-25] MEDS ORDERED: NICARDIPINE IV SCH (18:30)
[2020-03-25] MEDS ORDERED: SODIUM CHLORIDE 0.9% IV SCH (18:30)
[2020-03-25] MEDS: niCARdipine 25 MG in SODIUM CHLORIDE 0.9% 240 ML IV SCH (18:42)
[2020-03-25] MEDS: SODIUM CHLORIDE 0.9% 1000ML 1,000 ML IV SCH (18:42)
[2020-03-25] MEDS ORDERED: HEPARIN 100 UNIT/ML 5ML FLUSH FLUSH PRN (19:43)
--- NOTE | 2020-03-25 20:18 | Critical Care Consultation ---
Date of Consultation March 25, 2020 Assessment & Plan (1) Admitted to intensive care unit: Impression: 54-year-old male admitted for TIA presents to the ICU with strokelike symptoms and hypertensive urgency. Was evaluated by [facility] neurology which did not recommend administering TPA. Patient started on nicardipine drip for titration. Neuro - TIA/CVA?Patient was initially admitted this morning following an episode of strokelike symptoms that previously resolved with picture of TIA. CT head and neck and MRI negative. Patient became symptomatic again this afternoon and code stroke initiated. CT head and neck again negative for any acute process. -Evaluated by [facility] neurology and patient was not candidate for TPA -Given loading dose IV Plavix per neurology recommendations in addition to ASA -Plan for MRI in the a.m. -Neurology following, appreciate recommendations -Speech, OT, PT -Initial NIH of 17 following event, now 11. Continue monitoring frequent neuro checks/NIH scores. Depressioncontinue home meds Cardiac - Hypertensive urgencypatient with SBP's greater than 200. Was initially given 20 mg of labetalol without benefit and started on a Cardene drip. -Goal to allow permissive hypertension given neuro management with SBP 160- 180 -Continue home dose amlodipine for now -We will attempt to wean nicardipine and control with hydralazine/labetalol pushes if able -Continuous monitor on telemetry Respiratory - History of reactive airway disease/COPDcurrently maintaining oxygen saturation on 4 L nasal cannula, will wean as tolerated -History of right lower lobectomy -DuoNebs as needed -Continuous monitor on pulse ox GI - N.p.o. until speech eval RENAL/LYTES - Creatinine within normal limits, monitor routine BMPs replete electrolytes as indicated - Strict I's and O's ENDO - Euglycemic, no history of diabetes or thyroid disease ICU hyperglycemic protocol Non-Hodgkin's lymphomastatus post chemotherapy, follows with [facility] oncology HEME - H&H within normal limits, monitor routine CBCs ID - No indication for infectious process at this time LINES/IV ACCESS - Peripheral IVs DVT PROPHYLAXIS - SCDs, heparin Thank you for allowing us to participate in the care of this patient. Please refer to my attending physician's documentation for any further recommendations. (2) Acute right-sided weakness: (3) Body mass index (BMI) of 40.0-44.9 in adult: (4) Hypertensive urgency: (5) TIA (transient ischemic attack): (6) Castleman's disease: (7) Esophageal reflux: (8) History of chemotherapy: (9) Lower back pain: (10) Malignant lymphoma: (11) Reactive airway disease: Supervising Physician Co-Signing Physician Notes I agree with assessment and plan of Nikole MOSQUEDA. History of Present Illness Attending Physician: Malini Leal MD History of Present Illness Was consulted on following a code stroke, for which he did not receive TPA, but was requiring nicardipine drip for titration for blood pressure control as he was significantly hypertensive. Patient is a 54-year-old male with history of Hodgkin's lymphoma, GERD, COPD who was admitted to [facility] this morning with a sudden onset of acute right-sided weakness which lasted about 30 minutes and had resolved prior to arrival. Patient did state that he was still having numbness in his right hand up until this afternoon which had not resolved. This incident happened around midnight when he had gone to the refrigerator to get a drink and his entire right side went flaccid. Patient underwent CTA and MRI without any acute findings. He was evaluated by neurology this afternoon who felt this event was related to small vessel TIA and Plavix was added to aspirin regimen and repeat MRI was ordered for in the morning. However, later in the afternoon patient again experienced right side flaccidity with right-sided numbness and tingling involving the face and the right upper extremity. Patient was given 600 mg of IV Plavix and a code stroke was initiated. CT and CTA of the head and neck were repeated, and again were negative for intracranial findings/vessel occlusion. [facility] neurology did not recommend administering TPA. Patient was noted to be significantly hypertensive with blood pressure in the 190s and was given 20 mg of labetalol without goal effect and was started on nicardipine drip. On evaluation the patient is alert and oriented with mild dysarthria, some right sided facial droop, right upper extremity is flaccid and right lower extremity significantly weaker than the left but sensation in the right upper and lower extremities remains intact. Per nursing initial NIH score of 17 is now 11. Patient denies headache or syncope, sore throat fevers or recent illness, shortness of breath or wheezing, chest pain or palpitations, abdominal pain, nausea vomiting or diarrhea. Will allow permissive hypertension and try to wean patient off nicardipine. We will continue to manage in ICU overnight. Allergies Allergy/AdvReac Type Severity Reaction Status Date / Time No Known Allergies Allergy Verified 03/25/20 02: Home Medications Medication Instructions Recorded Confirmed Type aspirin 81 mg PO QAM 03/15/18 03/25/20 History valacyclovir [Valtrex] 500 mg PO PM 03/15/18 03/25/20 History albuterol sulfate [Ventolin HFA] 2 puff INHALATION Q6H PRN 06/30/19 03/25/20 History buspirone 15 mg tablet 15 mg PO BID 09/30/19 03/25/20 History escitalopram oxalate 20 mg tablet 20 mg PO QAM 09/30/19 03/25/20 History ipratropium 0.5 mg-albuterol 3 mg 3 ml INHALATION Q4H PRN 12/03/19 03/25/20 History (2.5 mg base)/3 mL nebulization soln ibuprofen [Motrin IB] 600 mg PO Q6H PRN 02/24/20 03/25/20 History amlodipine 10 mg PO DAILY 03/25/20 03/25/20 History Patient History Medical History Anxiety Asthma "well controlled" Carpal tunnel syndrome 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 Bustillos 02/11/2020 Thrombocytopenia chronic thrombocytopenia dating back to at least 02/2018, baseline plts 80's- low 100's range per chart review, most recent plt level 109 02/05/20 Surgical History History of colonoscopy History of lobectomy of lung RML > 2002 History of removal of Port-a-Cath Hx of lymph node excision right neck and right axillary S/P lymph node biopsy (02/11/20) Right Supracalvicular Lymph Node Biopsy Dr. Bustillos 02/11/2020 Family History Brother Cancer Hodgkin's lymphoma Other Diabetes Social History Smoking Status: Never smoker Second Hand Exposure: No; Do You Dip or Chew Tobacco: No; Tobacco Cessation Education Requested by Patient: No Hx Alcohol Use: Yes Alcohol type: wine Hx Substance Use: No Preferred Language: [place] Communication Ability: Effective Pocketed Spring Assembler Required: No Beliefs That Will Affect Care: None Current Living Situation: Significant Other Other Information That Helps Us Care for You: No Feels Safe at Home: Yes Safety Concerns: Feels Safe At This Time Assistive Devices: None Review of Systems Review of Systems: All systems reviewed & are unremarkable except as noted in HPI & below Physical Exam Constitutional: + obese, cooperative and comfortable; no acute distress Eyes: PERRL, conjunctivae normal, anicteric sclerae ENMT: external ear and nose normal, oropharynx normal Neck: trachea midline, no thyromegaly Respiratory: normal respiratory effort, lungs clear to auscultation Cardiovascular: RRR, no murmur, no edema Rate/Rhythm: regular rate and regular rhythm Heart Sounds: normal S1 and normal S2 Vessels: no JVD Extremities: normal capillary refill; no edema Gastrointestinal (Abdomen): normal bowel sounds, soft, nontender, no hepatosplenomegaly Skin: no rashes, warm and dry Neurologic: Cranial Nerves: sense of smell intact, PERRL, normal accommodation, EOM intact bilaterally, tongue midline, normal gag reflex, normal hearing, able to rotate head bilaterally and no nystagmus; + abnormal facial strength (Right-sided facial droop) and + not able to elevate shoulders (Unable to elevate right shoulder) Alert and oriented x3, right upper extremity is flaccid with sensation intact, trace movements to right lower extremity and sensation is also intact. No deficits in the left extremities. Psychiatric: A+Ox3, euthymic affect Results & Data Results & Data ([facility]) Vital Signs (Past 12 Hours) Vital Signs Temp Pulse Pulse Resp BP BP Pulse Ox 03/25/20 19:20 99 H 19 100 03/25/20 19:19 94 H 20 171/85 H 98 03/25/20 19:10 91 H 24 99 03/25/20 19:04 91 H 23 99 03/25/20 19:03 90 21 188/93 H 97 03/25/20 18:00 97 H 220/120 H 03/25/20 17:05 37.0 C 90 22 190/86 H 93 03/25/20 15:54 88 03/25/20 15:13 37 C 94 H 18 178/79 H 93 03/25/20 11:14 36.6 C 83 18 178/76 H 92 Coding Level of Care Code 54970 Inpt Consult Level 5 Diagnoses Admitted to intensive care unit Z78.9 Acute right-sided weakness R53.1 Body mass index (BMI) of 40.0-44.9 in adult Z68.41 Hypertensive urgency I16.0 TIA (transient ischemic attack) G45.9 Castleman's disease D47.Z2 Esophageal reflux K21.9 History of chemotherapy Z92.21 Lower back pain M54.5 Malignant lymphoma C85.90 Reactive airway disease J45.909
[2020-03-25] MEDS: valACYclovir HCL 500 MG TABLET PO SCH (20:25)
[2020-03-25] MEDS: HEPARIN SOD 5,000 UNIT/0.5 ML VIAL SQ SCH (22:04)
[2020-03-25] MEDS ORDERED: hydrALAZINE HCL 20 MG/ML VIAL IV ONE (23:21)
[2020-03-25] MEDS: ACETAMINOPHEN 1,000 MG/100 ML VIAL IV PRN (23:42)
[2020-03-26] MEDS: SODIUM CHLORIDE 0.9% 1000ML 1,000 ML IV SCH (02:38)
[2020-03-26] MEDS ORDERED: LABETALOL HCL IV 5 MG/ML 20ML IV PRN (05:01)
[2020-03-26] MEDS ORDERED: hydrALAZINE HCL 20 MG/ML VIAL ONE (05:03)
[2020-03-26] MEDS: hydrALAZINE HCL 20 MG/ML VIAL IV PRN ×2 (05:06→22:32)
[2020-03-26 05:25] LABS: Basophils # (auto) 0.02 K/uL (0-0.2); Basophils % (auto) 0.5 %; Eosinophils # (auto) 0.26 K/uL (0-0.5); Eosinophils % (auto) 6.2 %; Hematocrit (blood only) 39.3 % (42-52); Hemoglobin 13.6 g/dL (14.0-18.0); Immature Granulocytes # (auto) 0.01 K/uL (0.00-0.02); Immature Granulocytes % (auto) 0.2 %; Lymphocytes # (auto) 1.24 K/uL (1.2-3.4); Lymphocytes % (auto) 29.4 %; Mean Corpuscular Hemoglobin 30.2 pg (25-34); Mean Corpuscular Hgb Conc 34.6 g/dL (32-36); Mean Corpuscular Volume 87.1 fL (80-100); Mean Platelet Volume 10.2 fL (7.4-10.4); Monocytes # (auto) 0.62 K/uL (0.11-0.59); Monocytes % (auto) 14.7 %; Neutrophils # (auto) 2.07 K/uL (1.4-6.5); Platelet Count 113 K/uL (130-400); RDW Standard Deviation 44.8 fL (36.4-46.3); Red Blood Count 4.51 M/uL (4.7-6.1); White Blood Count 4.22 K/uL (4.8-10.8)
[2020-03-26 06:00] LABS: BUN Creatinine Ratio 20.1 (10-20); Calcium 8.6 mg/dl (8.5-10.1); Creatinine Clr Calc Pharmacy 168.6 ml/min; Est GFR (African American) 125.5; Est GFR (Non-African American) 108.3; Phosphorus 3.8 mg/dl (2.5-4.9); Potassium 3.3 mmol/L (3.5-5.1)
[2020-03-26 06:25] LABS: RBC Morphology Unremarkable
[2020-03-26] MEDS: POTASSIUM CHLORIDE / WTR 20 MEQ/100 ML PLCT IV SCH ×3 (06:32→10:28)
[2020-03-26] MEDS ORDERED: POTASSIUM CHLORIDE / WTR 10 MEQ/100 ML PLCT IV STA (08:06)
--- NOTE | 2020-03-26 08:07 | Critical Care Progress Note ---
Date of Service March 26, 2020 Assessment & Plan (1) Acute ischemic stroke: Reason critically ill: 54-year-old male admitted for TIA presented to the ICU with strokelike symptoms and hypertensive urgency. Was evaluated by [facility] which did not recommend administering TPA. Patient started on nicardipine drip for control of hypertension. Neuro: -CVA -Patient was initially admitted this morning following an episode of strokelike symptoms that previously resolved with picture of TIA. Initial CT head and neck and MRI negative. Patient became symptomatic again last night and stroke alert was initiated subsequent CT head, and CTA did not demonstrate interval changes. -Evaluated by [facility] and patient was not candidate for TPA -Given loading dose IV Plavix per neurology recommendations in addition to ASA -MRI brain from 03/26 demonstrated interval development of a 1.4 x 0.5 cm acute infarct within the left lateral thalamus and posterior limb of the left internal capsule as compared to MRI from 03/25 -Neurology following, appreciate recommendations -OT, PT consulted -Speech therapy evaluation demonstrated appropriate for regular diet without signs of aspiration -Continue Plavix, ASA 81 -Start atorvastatin 80 -Continue monitoring frequent neuro checks/NIH scores. -Permissive hypertension goal SBP 160-190 Cardiac/Vascular: -Hypertensive urgencypatient with SBP's greater than 200. Was initially given 20 mg of labetalol without benefit and started on a Cardene drip. -Goal to allow permissive hypertension given neuro management with SBP 160- 180 -Continue home dose amlodipine for now -We will attempt to wean nicardipine and control with hydralazine/labetalol pushes if able -Continuous monitor on telemetry Respiratory: -History of reactive airway disease/COPD, currently maintaining appropriate oxygenation on room air -History of right lower lobectomy -DuoNebs as needed -Continue to monitor on pulse ox GI/Nutrition: -Speech evaluation demonstrated toleration of regular diet without signs of aspiration -Regular diet Renal/Lytes: -Creatinine within normal limits -Continue to monitor routine BMPs, and replete as needed : -Strict I's and O's ENDO: -no history of diabetes or thyroid disease -Continue to monitor per ICU glycemic protocol -Non-Hodgkin's lymphoma: s/p chemotherapy, follows with [facility] oncology HEME: -Hemoglobin stable at 13.6 -monitor routine CBCs ID: -No indication for infectious process at this time. Lines/IV Access: -Left subclavian DVT prophylaxis: -SubQ heparin (2) Hypertensive urgency: (3) Hodgkin's disease: (4) Pneumonia: (5) Malignant lymphoma: (6) Esophageal reflux: (7) Castleman's disease: Admission and Anticipated Discharge Date Admission Date: March 25, 2020 Supervising Physician Co-Signing Physician Notes Dr. Frye was resident physician during care of patient. I separately evaluated patient for lopez portions of the history and the exam. I was present during the critical portion of medical decision making, and I discussed the case with the resident. I generally agree with the findings and plan. Getting MRI, will place day 2 orders needs rectal aspirin as he is not able to passes swallow study goal blood pressure 1 [id number] permissive hypertension able to decrease later today. Remains ICU as patient still requiring intravenous antihypertensives. Patient discussed on multidisciplinary rounds I have personally spent 40 minutes of critical care time in the direct management of this patient. This is a life/limb threatening event. This includes time spent evaluating patient, direct bedside care, chart review, placing orders, interpretation of diagnostic studies, discussion with consultants, patient, and/or family members regarding treatment decisions, as well as other required patient management activities. This time is exclusive of all separately billable procedures, and teaching time and separate from and in addition to any other critical care service time. Subjective Patient no acute events overnight following being brought down for stroke alert, was able to be weaned off of nicardipine drip with maintenance of appropriate blood pressures. Continues to remain unable to move right upper and lower extremities and has right facial droop. Review of Systems Review of Systems: All systems reviewed & are unremarkable except as noted in Subjective Physical Exam Constitutional: well developed and well nourished Eyes: PERRL, conjunctivae normal, anicteric sclerae Neck: normal visual inspection and trachea midline Respiratory: normal respiratory effort and + respiratory distress; no labored breathing and no retractions Auscultation: lungs clear to auscultation bilaterally Cardiovascular: Rate/Rhythm: regular rate and regular rhythm Heart Sounds: no gallop, no murmur and no cardiac rub Palpation: no thrill Vessels: normal peripheral pulses; no JVD Gastrointestinal (Abdomen): normal bowel sounds, soft, nontender, no hepatosplenomegaly Musculoskeletal: Extremities: + limited ROM of extremities (Right upper and lower extremity motion limited strength 1 out of 5) Neurologic: Cranial Nerves: PERRL, EOM intact bilaterally, tongue midline and able to rotate head bilaterally; + abnormal facial strength (Right-sided facial droop) and + not able to elevate shoulders (Minimally able to elevate right shoulder) Psychiatric: Orientation: alert and oriented x 3 Results & Data Results & Data ([facility]) Vital Signs (Past 12 Hours) Vital Signs Pulse Resp BP Pulse Ox 03/26/20 06:31 90 18 97 03/26/20 06:30 101 H 26 H 176/97 H 97 03/26/20 06:01 75 18 97 03/26/20 06:00 78 17 147/76 H 97 03/26/20 05:31 102 H 26 H 97 03/26/20 05:30 96 H 29 H 184/89 H 97 03/26/20 05:23 89 24 192/83 H 97 03/26/20 05:01 83 18 97 03/26/20 05:00 96 H 21 197/86 H 98 03/26/20 04:50 86 21 98 03/26/20 04:40 84 23 97 03/26/20 04:38 82 22 185/90 H 94 03/26/20 04:31 86 23 98 03/26/20 04:30 88 23 204/109 H 98 03/26/20 04:20 85 21 98 03/26/20 04:10 87 29 H 95 03/26/20 04:01 81 17 95 03/26/20 04:00 84 20 176/80 H 96 03/26/20 03:50 80 16 96 03/26/20 03:40 90 19 95 03/26/20 03:31 92 H 16 99 03/26/20 03:30 93 H 18 169/92 H 98 03/26/20 03:20 73 15 97 03/26/20 03:10 69 15 96 03/26/20 03:01 72 14 98 03/26/20 03:00 75 17 173/83 H 98 03/26/20 02:31 71 15 98 03/26/20 02:30 71 15 172/80 H 98 03/26/20 02:01 73 18 98 03/26/20 02:00 67 18 176/93 H 98 03/26/20 01:50 81 03/26/20 01:49 77 16 170/80 H 97 03/26/20 01:31 85 21 98 03/26/20 01:30 83 17 183/94 H 97 03/26/20 01:01 77 16 98 03/26/20 01:00 75 16 173/82 H 97 03/26/20 00:30 74 17 98 03/26/20 00:20 75 17 98 03/26/20 00:19 77 17 163/75 H 96 03/26/20 00:10 100 H 20 98 03/26/20 00:04 85 18 173/81 H 96 03/26/20 00:00 85 18 97 03/25/20 23:51 87 18 96 03/25/20 23:50 88 19 164/83 H 96 03/25/20 23:40 94 H 21 97 03/25/20 23:39 96 H 21 169/84 H 96 03/25/20 23:34 97 H 23 177/83 H 96 03/25/20 23:30 93 H 23 97 03/25/20 23:23 105 H 23 182/78 H 95 03/25/20 23:21 95 H 34 H 97 03/25/20 23:20 92 H 26 H 220/102 H 97 03/25/20 23:10 101 H 28 H 95 03/25/20 23:05 87 23 215/103 H 94 03/25/20 23:00 91 H 24 94 03/25/20 22:58 85 21 221/101 H 94 03/25/20 22:50 87 19 94 03/25/20 22:49 98 H 23 221/127 H 92 03/25/20 22:42 91 H 18 202/108 H 94 03/25/20 22:40 85 19 98 03/25/20 22:38 83 21 207/105 H 97 03/25/20 22:34 82 20 195/90 H 97 03/25/20 22:32 81 18 188/96 H 97 03/25/20 22:30 87 19 97 03/25/20 22:20 89 20 98 03/25/20 22:19 82 21 193/88 H 93 03/25/20 22:10 80 18 97 03/25/20 22:09 76 20 177/74 H 97 03/25/20 22:04 88 19 186/92 H 96 03/25/20 22:00 87 20 98 03/25/20 21:50 85 19 98 03/25/20 21:49 86 21 187/93 H 97 03/25/20 21:40 81 18 97 03/25/20 21:34 85 20 184/88 H 97 03/25/20 21:30 90 20 98 03/25/20 21:20 86 22 98 03/25/20 21:19 85 19 172/80 H 97 03/25/20 21:10 90 20 97 03/25/20 21:04 86 20 181/92 H 98 03/25/20 21:00 90 22 97 03/25/20 20:50 88 19 97 03/25/20 20:49 84 19 166/85 H 97 03/25/20 20:40 84 19 97 03/25/20 20:34 87 18 171/79 H 97 03/25/20 20:30 90 19 97 03/25/20 20:20 95 H 22 99 03/25/20 20:19 92 H 21 160/84 H 98 03/25/20 20:10 93 H 18 98 Laboratory Results 03/26/20 03/26/20 03/25/20 Range/Units 04:52 04:52 23:44 WBC 4.22 L (4.8-10.8) K/uL RBC 4.51 L (4.7-6.1) M/uL Hgb 13.6 L (14.0-18.0) g/dL Hct 39.3 L (42-52) % MCV 87.1 (80-100) fL MCH 30.2 (25-34) pg MCHC 34.6 (32-36) g/dL RDW Std Deviation 44.8 (36.4-46.3) fL RDW Coeff of Maia 14.0 (11.5-14.5) % Plt Count 113 L (130-400) K/uL MPV 10.2 (7.4-10.4) fL Immature Gran % (Auto) 0.2 % Neut % (Auto) 49.0 % Lymph % (Auto) 29.4 % Sawyer % (Auto) 14.7 % Eos % (Auto) 6.2 % Baso % (Auto) 0.5 % Neut # (Auto) 2.07 (1.4-6.5) K/uL Lymph # (Auto) 1.24 (1.2-3.4) K/uL Sawyer # (Auto) 0.62 H (0.11-0.59) K/uL Eos # (Auto) 0.26 (0-0.5) K/uL Baso # (Auto) 0.02 (0-0.2) K/uL Immature Gran # (Auto) 0.01 (0.00-0.02) K/uL RBC Morphology Unremarkable Sodium 142 (136-145) mmol/L Potassium 3.3 L (3.5-5.1) mmol/L Chloride 109 H (98-107) mmol/L Carbon Dioxide 27 (21-32) mmol/L Anion Gap 6.0 (3-11) BUN 14 (7-18) mg/dl Creatinine 0.68 (0.6-1.4) mg/dl Est Cr Clr Drug Dosing 168.6 ml/min Est GFR ( Amer) 125.5 Est GFR (Non-Af Amer) 108.3 BUN/Creatinine Ratio 20.1 H (10-20) Glucose 103 H (70-99) mg/dl POC Glucose 118 H (70-99) mg/dl Calcium 8.6 (8.5-10.1) mg/dl Phosphorus 3.8 (2.5-4.9) mg/dl Magnesium 2.0 (1.8-2.4) mg/dl Triglycerides 156 H (0-150) mg/dl Cholesterol 187 (0-200) mg/dl LDL Cholesterol, Calc 124 mg/dl VLDL Cholesterol, Calc 31 mg/dl HDL Cholesterol 32 mg/dl Cholesterol/HDL Ratio 6 /05/10 Range/Units 17:10 WBC (4.8-10.8) K/uL RBC (4.7-6.1) M/uL Hgb (14.0-18.0) g/dL Hct (42-52) % MCV (80-100) fL MCH (25-34) pg MCHC (32-36) g/dL RDW Std Deviation (36.4-46.3) fL RDW Coeff of Maia (11.5-14.5) % Plt Count (130-400) K/uL MPV (7.4-10.4) fL Immature Gran % (Auto) % Neut % (Auto) % Lymph % (Auto) % Sawyer % (Auto) % Eos % (Auto) % Baso % (Auto) % Neut # (Auto) (1.4-6.5) K/uL Lymph # (Auto) (1.2-3.4) K/uL Sawyer # (Auto) (0.11-0.59) K/uL Eos # (Auto) (0-0.5) K/uL Baso # (Auto) (0-0.2) K/uL Immature Gran # (Auto) (0.00-0.02) K/uL RBC Morphology Sodium (136-145) mmol/L Potassium (3.5-5.1) mmol/L Chloride (98-107) mmol/L Carbon Dioxide (21-32) mmol/L Anion Gap (3-11) BUN (7-18) mg/dl Creatinine (0.6-1.4) mg/dl Est Cr Clr Drug Dosing ml/min Est GFR ( Amer) Est GFR (Non-Af Amer) BUN/Creatinine Ratio (10-20) Glucose (70-99) mg/dl POC Glucose 104 H (70-99) mg/dl Calcium (8.5-10.1) mg/dl Phosphorus (2.5-4.9) mg/dl Magnesium (1.8-2.4) mg/dl Triglycerides (0-150) mg/dl Cholesterol (0-200) mg/dl LDL Cholesterol, Calc mg/dl VLDL Cholesterol, Calc mg/dl HDL Cholesterol mg/dl Cholesterol/HDL Ratio Medications Administered Current Inpatient Medications Acetaminophen (Acetaminophen 325 Mg Tab) 650 mg PO Q4H PRN PRN Reason: Pain or Fever Stop: 04/24/20 05:22 Albuterol (Albut/Ipratrop 3mg/0.5mg Neb 3 Ml Vial) 3 ml INH Q4H PRN PRN Reason: Shortness Of Breath Stop: 04/24/20 05:22 Amlodipine Besylate (Amlodipine Besylate 5 Mg Tab) 2.5 mg PO DAILY [facility] Stop: 04/24/20 08:59 Last Admin: 03/26/20 11:17 Dose: 2.5 mg Documented by: Aspirin (Aspirin 81 Mg Ectab) 81 mg PO QAM [facility] Stop: 04/25/20 08:59 Last Admin: 03/26/20 11:15 Dose: 81 mg Documented by: Atorvastatin Calcium (Atorvastatin 40 Mg Tab) 80 mg PO [facility] Stop: 04/25/20 13:14 Last Admin: 03/26/20 14:20 Dose: 80 mg Documented by: Buspirone HCl (Buspirone 15 Mg Tab) 15 mg PO BID [facility] Stop: 04/24/20 08:59 Last Admin: 03/26/20 11:18 Dose: 15 mg Documented by: Clopidogrel Bisulfate (Clopidogrel Bisulfate 75 Mg Tab) 75 mg PO [facility] Stop: 04/25/20 08:59 Last Admin: 03/26/20 11:18 Dose: 75 mg Documented by: Escitalopram Oxalate (Escitalopram Oxalate 20 Mg Tab) 20 mg PO [facility] Stop: 04/24/20 08:59 Last Admin: 03/26/20 11:17 Dose: 20 mg Documented by: Heparin Sodium (Porcine) (Heparin 100 Unit/Ml 5ml Flush) 5 ml FLUSH PRN PRN PRN Reason: Flush Stop: 04/24/20 19:42 Heparin Sodium (Porcine) (Heparin Sod 5,000 Unit/0.5 Ml Vial) 5,000 units SQ Q12 [facility] Stop: 04/24/20 20:59 Last Admin: 03/26/20 08:30 Dose: 5,000 units Documented by: Hydralazine HCl (Hydralazine Hcl 20 Mg/Ml Vial) 10 mg IV Q4H PRN PRN Reason: hypertension Stop: 04/25/20 05:00 Last Admin: 03/26/20 05:06 Dose: 10 mg Documented by: Promethazine HCl 12.5 mg/ (Sodium Chloride) 50.5 mls @ 202 mls/hr IV Q6H PRN PRN Reason: Nausea And Vomiting Stop: 04/24/20 05:22 Lorazepam (Ativan) 0.5 mg in 1 mls @ 1 mls/min IV Q4H PRN PRN Reason: Anxiety/Agitation Stop: 04/24/20 05:22 Last Admin: 03/26/20 05:23 Dose: 1 mls/min Documented by: Nicardipine HCl 25 mg/ Sodium (Chloride) 250 mls @ 0 mls/hr IV .Q0M [facility]; Protocol Stop: 04/24/20 18:44 Last Admin: 03/26/20 08:29 Dose: Not Given Documented by: Acetaminophen (Ofirmev) 1,000 mg in 100 mls @ 400 mls/hr IV Q8H PRN PRN Reason: Pain or Fever Stop: 03/28/20 23:32 Last Infusion: 03/26/20 00:04 Dose: Infused Documented by: Labetalol HCl (Labetalol Hcl Iv 5 Mg/Ml 20ml) 10 mg IV Q2H PRN PRN Reason: Hypertension Stop: 04/25/20 05:00 Miscellaneous (Icu Protocol For Hyperglycemia) 1 ea N/A PRN PRN; Protocol PRN Reason: Hyperglycemia Protocol Stop: 03/28/20 10:16 Oxycodone HCl (Oxycodone Hcl Ir 5 Mg Tab (Immediate Release)) 5 mg PO Q4H PRN PRN Reason: Pain Stop: 04/08/20 05:22 Pantoprazole Sodium (Pantoprazole 40 Mg Tab) 40 mg PO QAM [facility] Stop: 04/25/20 14:59 Valacyclovir HCl (Valacyclovir Hcl 500 Mg Tablet) 500 mg PO PM [facility] Stop: 04/24/20 20:59 Last Admin: 03/25/20 20:25 Dose: Not Given Documented by: Resident Activity Tracking Resident Involvement: Resident Care Provided Care Provided: Adult Hospital Medicine (1) Hodgkin's disease Hodgkin lymphoma type: unspecified type Lymphoma site: unspecified region Qualified Code(s): C81.90 - Hodgkin lymphoma, unspecified, unspecified site
[2020-03-26] MEDS: niCARdipine 25 MG in SODIUM CHLORIDE 0.9% 240 ML IV SCH (08:29)
[2020-03-26] MEDS: HEPARIN SOD 5,000 UNIT/0.5 ML VIAL SQ SCH ×2 (08:30→20:10)
--- NOTE | 2020-03-26 09:57 | Billing Data ---
Date of Service March 26, 2020 Coding Level of Care Code Critical Care 1st - mins
[2020-03-26] MEDS ORDERED: ICU PROTOCOL FOR HYPERGLYCEMIA PRN (10:17)
[2020-03-26] MEDS ORDERED: ASPIRIN 300 MG SUPP PR ONE (10:21)
[2020-03-26] MEDS: ASPIRIN 81 MG ECTAB PO SCH (11:15)
[2020-03-26] MEDS: amLODIPine BESYLATE 5 MG TAB PO SCH (11:17)
[2020-03-26] MEDS: ESCITALOPRAM OXALATE 20 MG TAB PO SCH (11:17)
[2020-03-26] MEDS: busPIRone 15 MG TAB PO SCH ×2 (11:18→20:09)
[2020-03-26] MEDS: CLOPIDOGREL BISULFATE 75 MG TAB PO SCH (11:18)
--- NOTE | 2020-03-26 12:55 | Magnetic Resonance Report ---
MRI OF THE BRAIN WITHOUT CONTRAST CLINICAL HISTORY: New onset right-sided weakness. Evaluate for stroke. COMPARISON STUDY: MRI of the brain March 25, 2020. Head CT and CTA of the head March 25, 2020. TECHNIQUE: Utilizing a 1.5 Ninfa magnet and dedicated coil, multiplanar, multiecho imaging of the bra in was performed without IV contrast. FINDINGS: There has been interval development of a 1.4 x 0.5 cm focus of restricted diffusion within the lateral aspect of the left thalamus and posterior limb of the left internal capsule since MRI of March 25, 2020. There is mild corresponding T2 hyperintensity. There is no mass effect or hemorrhag e. No additional acute infarcts are present. Ventricular system is normal. Basal cisterns are patent. There are no extra-axial collections. No intracranial masses identified on this unenhanced examinati on. Sinus mucosal thickening is again noted. Enlarged upper cervical lymph nodes are better depicted on prior CT of the neck. IMPRESSION: 1. Interval development of a 1.4 x 0.5 cm acute infarct within the lateral left thalamus and posterio r limb of the left internal capsule since MRI of March 25, 2020. No associated hemorrhage or mass e ffect. 2. Otherwise, unchanged appearance of the brain, as described above. ACT 112: Negative or not required by law. Electronically signed by: Rangel Muniz M.D. 03/26/2020 12:54 PM
--- NOTE | 2020-03-26 13:35 | Hospitalist Progress Note ---
Date of Service March 26, 2020 Assessment & Plan (1) Acute ischemic stroke: Admitted with TIA as documented below Now has acute infarct within the lateral left thalamus and posterior limb of the left internal capsule 1.4 x 0.5 cm Did not receive any TPA due to very high blood pressure Received loading dose of Plavix and now continues to get aspirin 81 mg and Plavix 75 mg daily and a statin Speech evaluation, PT and OT Events from 03/25/2020 At around 3:40 PM while he was being seen by the neurologist he has had an episode of right-sided numbness and weakness exactly the way he was admitted to the hospital early that morning. I was informed and I saw the patient with objective findings of weakness in the right-sided extremities and questionable right facial droop without any visual symptoms. She was given loading dose of Plavix with 600 mg in total for the day and advised to stay in the hospital. At around 5:10 PM during suppertime the caring nurse informed me that he is unable to use his right upper extremity to eat and also having garbled speech and right facial droop. I immediately examined him at the time and has had objective findings of his complaints and immediately called for stroke alert. He was moved to ICU and relevant CT of the head, CTA of the head and neck were unremarkable as before and he was evaluated by Dr. Moran the on-call [place] tele-neurologist. Due to severe high blood pressure with systolic above 225 which was not immediately controlled with intravenous labetalol and required IV Cardene drip to reasonably control the blood pressure but TPA was not given due to very high blood pressure. His aspirin and Plavix were continued and he remained in ICU for continuation of care. (2) TIA (transient ischemic attack): Presented with right-sided numbness and weakness which resolved following admission and recurred thereafter Initial investigations including CT of the head, CTA of the head and neck and echo were unremarkable Was getting aspirin 81 mg and Plavix and is about to leave the hospital During neurology evaluation by the neurologist he suffered another attack of numbness and weakness involving right side and subsequently he ended up with a stroke as mentioned above (3) Hypertensive urgency: He was on amlodipine as an outpatient but has not been taking that medicine to control blood pressure His systolic blood pressure is noted to be high at 210 with diastolic 116 at presentation to the emergency room Initial symptoms of TIA was thought to be due to hypertensive urgency Permissive hypertension maintained and he was given amlodipine 2.5 mg Noted to have severe hypertension in the ICU during the second episode of strokelike symptoms which required control with intravenous Cardene and the patient did not receive any TPA due to very high blood pressure Blood pressure seems to be stable since this morning (4) H/O Hodgkin's lymphoma: 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, patient follows with [facility] Received last chemotherapy in 2009 Now has generalized lymphadenopathy as per the CT scans Will have a follow-up appointment with oncologist as an outpatient (5) Esophageal reflux: Will start Protonix (6) History of lobectomy of lung: No acute issues History of COPD Seems to be stable DVT prophylaxis Has chronic thrombocytopenia with platelet count more than 100 We will put him on subcu heparin CODE STATUS Full Admission and Anticipated Discharge Date Admission Date: March 26, 2020 Subjective 03/26/2020 The patient was seen and examined in ICU He has been feeling a little better with improved speech, right facial droop and no visual abnormalities but continues to have right extremities weakness Denies any other significant symptoms Events from 03/25/2020 He was about to leave the hospital after being evaluated by neurologist At around 3:40 PM while he was being seen by the neurologist he has had an episode of right-sided numbness and weakness exactly the way he was admitted to the hospital early that morning. I was informed and I saw the patient with objective findings of weakness in the right-sided extremities and questionable right facial droop without any visual symptoms. She was given loading dose of Plavix with 600 mg in total for the day and advised to stay in the hospital. At around 5:10 PM during suppertime the caring nurse informed me that he is unable to use his right upper extremity to eat and also having garbled speech and right facial droop. I immediately examined him at the time and has had objective findings of his complaints and immediately called for stroke alert. He was moved to ICU and relevant CT of the head, CTA of the head and neck were unremarkable as before and he was evaluated by Dr. Moran the on-call [place] tele-neurologist. Due to severe high blood pressure with systolic above 225 which was not immediately controlled with intravenous labetalol and required IV Cardene drip to reasonably control the blood pressure but TPA was not given due to very high blood pressure. His aspirin and Plavix were continued and he remained in ICU for continuation of care. Review of Systems Review of Systems: All systems reviewed and are unremarkable except as noted below Neurologic: Alert, awake and oriented x3. Minimal dysarthria and minimal right facial droop without any visual symptoms. Has near complete paralysis of right upper and lower extremities with intact sensation. Physical Exam Physical Exam: Lying in bed comfortably but very anxious Constitutional: well developed, well nourished and + obese; not ill appearing Eyes: PERRL, conjunctivae normal, anicteric sclerae ENMT: external ear and nose normal, oropharynx normal Neck: trachea midline, no thyromegaly Respiratory: no respiratory distress Auscultation: lungs clear to auscultation bilaterally Cardiovascular: Rate/Rhythm: regular rate and regular rhythm Heart Sounds: no murmur Extremities: no edema Gastrointestinal (Abdomen): Inspection/Auscultation: abdomen not distended Percussion/Palpation: abdomen soft; abdomen nontender Musculoskeletal: No acute arthritis involving any joint Neurologic: Alert, awake and oriented x3. Minimal dysarthria with minimal right facial droop. No visual abnormality. Near complete paralysis of right upper and lower extremities with intact sensorium Psychiatric: A+Ox3, euthymic affect Lymphatic: no cervical or axillary lymphadenopathy Results & Data Results & Data ([facility]) Vital Signs (Past 12 Hours) Vital Signs Pulse Resp BP Pulse Ox 03/26/20 12:30 87 15 168/85 H 93 03/26/20 10:00 91 H 19 172/83 H 96 03/26/20 09:30 90 18 161/70 H 98 03/26/20 09:00 95 H 19 157/85 H 96 03/26/20 08:30 82 16 164/89 H 98 03/26/20 08:00 78 15 156/71 H 97 03/26/20 07:30 85 19 171/81 H 97 03/26/20 07:00 81 19 174/78 H 97 03/26/20 06:31 90 18 97 03/26/20 06:30 101 H 26 H 176/97 H 97 03/26/20 06:01 75 18 97 03/26/20 06:00 78 17 147/76 H 97 03/26/20 05:31 102 H 26 H 97 03/26/20 05:30 96 H 29 H 184/89 H 97 03/26/20 05:23 89 24 192/83 H 97 03/26/20 05:01 83 18 97 03/26/20 05:00 96 H 21 197/86 H 98 03/26/20 04:50 86 21 98 03/26/20 04:40 84 23 97 03/26/20 04:38 82 22 185/90 H 94 03/26/20 04:31 86 23 98 03/26/20 04:30 88 23 204/109 H 98 03/26/20 04:20 85 21 98 03/26/20 04:10 87 29 H 95 03/26/20 04:01 81 17 95 03/26/20 04:00 84 20 176/80 H 96 03/26/20 03:50 80 16 96 03/26/20 03:40 90 19 95 03/26/20 03:31 92 H 16 99 03/26/20 03:30 93 H 18 169/92 H 98 03/26/20 03:20 73 15 97 03/26/20 03:10 69 15 96 03/26/20 03:01 72 14 98 03/26/20 03:00 75 17 173/83 H 98 03/26/20 02:31 71 15 98 03/26/20 02:30 71 15 172/80 H 98 03/26/20 02:01 73 18 98 03/26/20 02:00 67 18 176/93 H 98 03/26/20 01:50 81 03/26/20 01:49 77 16 170/80 H 97 03/26/20 01:31 85 21 98 03/26/20 01:30 83 17 183/94 H 97 Laboratory Results Current Inpatient Medications Acetaminophen (Acetaminophen 325 Mg Tab) 650 mg PO Q4H PRN PRN Reason: Pain or Fever Stop: 04/24/20 05:22 Albuterol (Albut/Ipratrop 3mg/0.5mg Neb 3 Ml Vial) 3 ml INH Q4H PRN PRN Reason: Shortness Of Breath Stop: 04/24/20 05:22 Amlodipine Besylate (Amlodipine Besylate 5 Mg Tab) 2.5 mg PO DAILY [facility] Stop: 04/24/20 08:59 Last Admin: 03/26/20 11:17 Dose: 2.5 mg Documented by: Aspirin (Aspirin 81 Mg Ectab) 81 mg PO QAM [facility] Stop: 04/25/20 08:59 Last Admin: 03/26/20 11:15 Dose: 81 mg Documented by: Atorvastatin Calcium (Atorvastatin 40 Mg Tab) 80 mg PO [facility] Stop: 04/25/20 13:14 Buspirone HCl (Buspirone 15 Mg Tab) 15 mg PO BID [facility] Stop: 04/24/20 08:59 Last Admin: 03/26/20 11:18 Dose: 15 mg Documented by: Clopidogrel Bisulfate (Clopidogrel Bisulfate 75 Mg Tab) 75 mg PO [facility] Stop: 04/25/20 08:59 Last Admin: 03/26/20 11:18 Dose: 75 mg Documented by: Escitalopram Oxalate (Escitalopram Oxalate 20 Mg Tab) 20 mg PO [facility] Stop: 04/24/20 08:59 Last Admin: 03/26/20 11:17 Dose: 20 mg Documented by: Heparin Sodium (Porcine) (Heparin 100 Unit/Ml 5ml Flush) 5 ml FLUSH PRN PRN PRN Reason: Flush Stop: 04/24/20 19:42 Heparin Sodium (Porcine) (Heparin Sod 5,000 Unit/0.5 Ml Vial) 5,000 units SQ Q12 [facility] Stop: 04/24/20 20:59 Last Admin: 03/26/20 08:30 Dose: 5,000 units Documented by: Hydralazine HCl (Hydralazine Hcl 20 Mg/Ml Vial) 10 mg IV Q4H PRN PRN Reason: hypertension Stop: 04/25/20 05:00 Last Admin: 03/26/20 05:06 Dose: 10 mg Documented by: Promethazine HCl 12.5 mg/ (Sodium Chloride) 50.5 mls @ 202 mls/hr IV Q6H PRN PRN Reason: Nausea And Vomiting Stop: 04/24/20 05:22 Lorazepam (Ativan) 0.5 mg in 1 mls @ 1 mls/min IV Q4H PRN PRN Reason: Anxiety/Agitation Stop: 04/24/20 05:22 Last Admin: 03/26/20 05:23 Dose: 1 mls/min Documented by: Nicardipine HCl 25 mg/ Sodium (Chloride) 250 mls @ 0 mls/hr IV .Q0M [facility]; Protocol Stop: 04/24/20 18:44 Last Admin: 03/26/20 08:29 Dose: Not Given Documented by: Acetaminophen (Ofirmev) 1,000 mg in 100 mls @ 400 mls/hr IV Q8H PRN PRN Reason: Pain or Fever Stop: 03/28/20 23:32 Last Infusion: 03/26/20 00:04 Dose: Infused Documented by: Labetalol HCl (Labetalol Hcl Iv 5 Mg/Ml 20ml) 10 mg IV Q2H PRN PRN Reason: Hypertension Stop: 04/25/20 05:00 Miscellaneous (Icu Protocol For Hyperglycemia) 1 ea N/A PRN PRN; Protocol PRN Reason: Hyperglycemia Protocol Stop: 03/28/20 10:16 Oxycodone HCl (Oxycodone Hcl Ir 5 Mg Tab (Immediate Release)) 5 mg PO Q4H PRN PRN Reason: Pain Stop: 04/08/20 05:22 Valacyclovir HCl (Valacyclovir Hcl 500 Mg Tablet) 500 mg PO PM [facility] Stop: 04/24/20 20:59 Last Admin: 03/25/20 20:25 Dose: Not Given Documented by: Medications Administered Current Inpatient Medications Acetaminophen (Acetaminophen 325 Mg Tab) 650 mg PO Q4H PRN PRN Reason: Pain or Fever Stop: 04/24/20 05:22 Albuterol (Albut/Ipratrop 3mg/0.5mg Neb 3 Ml Vial) 3 ml INH Q4H PRN PRN Reason: Shortness Of Breath Stop: 04/24/20 05:22 Amlodipine Besylate (Amlodipine Besylate 5 Mg Tab) 2.5 mg PO DAILY [facility] Stop: 04/24/20 08:59 Last Admin: 03/26/20 11:17 Dose: 2.5 mg Documented by: Aspirin (Aspirin 81 Mg Ectab) 81 mg PO QAM [facility] Stop: 04/25/20 08:59 Last Admin: 03/26/20 11:15 Dose: 81 mg Documented by: Atorvastatin Calcium (Atorvastatin 40 Mg Tab) 80 mg PO QAM [facility] Stop: 04/25/20 13:14 Buspirone HCl (Buspirone 15 Mg Tab) 15 mg PO BID [facility] Stop: 04/24/20 08:59 Last Admin: 03/26/20 11:18 Dose: 15 mg Documented by: Clopidogrel Bisulfate (Clopidogrel Bisulfate 75 Mg Tab) 75 mg PO QAM [facility] Stop: 04/25/20 08:59 Last Admin: 03/26/20 11:18 Dose: 75 mg Documented by: Escitalopram Oxalate (Escitalopram Oxalate 20 Mg Tab) 20 mg PO [facility] Stop: 04/24/20 08:59 Last Admin: 03/26/20 11:17 Dose: 20 mg Documented by: Heparin Sodium (Porcine) (Heparin 100 Unit/Ml 5ml Flush) 5 ml FLUSH PRN PRN PRN Reason: Flush Stop: 04/24/20 19:42 Heparin Sodium (Porcine) (Heparin Sod 5,000 Unit/0.5 Ml Vial) 5,000 units SQ Q12 [facility] Stop: 04/24/20 20:59 Last Admin: 03/26/20 08:30 Dose: 5,000 units Documented by: Hydralazine HCl (Hydralazine Hcl 20 Mg/Ml Vial) 10 mg IV Q4H PRN PRN Reason: hypertension Stop: 04/25/20 05:00 Last Admin: 03/26/20 05:06 Dose: 10 mg Documented by: Promethazine HCl 12.5 mg/ (Sodium Chloride) 50.5 mls @ 202 mls/hr IV Q6H PRN PRN Reason: Nausea And Vomiting Stop: 04/24/20 05:22 Lorazepam (Ativan) 0.5 mg in 1 mls @ 1 mls/min IV Q4H PRN PRN Reason: Anxiety/Agitation Stop: 04/24/20 05:22 Last Admin: 03/26/20 05:23 Dose: 1 mls/min Documented by: Nicardipine HCl 25 mg/ Sodium (Chloride) 250 mls @ 0 mls/hr IV .Q0M [facility]; Protocol Stop: 04/24/20 18:44 Last Admin: 03/26/20 08:29 Dose: Not Given Documented by: Acetaminophen (Ofirmev) 1,000 mg in 100 mls @ 400 mls/hr IV Q8H PRN PRN Reason: Pain or Fever Stop: 03/28/20 23:32 Last Infusion: 03/26/20 00:04 Dose: Infused Documented by: Labetalol HCl (Labetalol Hcl Iv 5 Mg/Ml 20ml) 10 mg IV Q2H PRN PRN Reason: Hypertension Stop: 04/25/20 05:00 Miscellaneous (Icu Protocol For Hyperglycemia) 1 ea N/A PRN PRN; Protocol PRN Reason: Hyperglycemia Protocol Stop: 03/28/20 10:16 Oxycodone HCl (Oxycodone Hcl Ir 5 Mg Tab (Immediate Release)) 5 mg PO Q4H PRN PRN Reason: Pain Stop: 04/08/20 05:22 Valacyclovir HCl (Valacyclovir Hcl 500 Mg Tablet) 500 mg PO PM [facility] Stop: 04/24/20 20:59 Last Admin: 03/25/20 20:25 Dose: Not Given Documented by:
[2020-03-26] MEDS: ATORVASTATIN 40 MG TAB PO SCH (14:20)
--- NOTE | 2020-03-26 15:12 | Neurology Progress Note ---
Date of Service March 26, 2020 Assessment & Plan (1) Acute right-sided weakness: 1. will need PT/OT acute rehab (2) Hypertensive urgency: 1. permissive hypertension and then bring blood pressure down slowly 2. monitor for a fib- will need a ZIO in out patient follow up (3) Acute ischemic stroke: 1. MRI brain repeated - acute infarct left thalamus and left internal capsule 2. plavix 75 mg started with aspirin 81 mg - continue 21 days and then stop aspirin continue plavix 75 mg for life 3. permissive hypertension and then slowly optimize HTN HLD, DM LDL <70 4. PT/OT/speech for discharge needs 5. appointment with neurology will be schedules with Michelle MILLER 4-6 weeks after discharge from [facility] Present on Admission?: No Admission and Anticipated Discharge Date Admission Date: March 26, 2020 Supervising Physician Co-Signing Physician Notes I have seen and discussed above patient with Dr Danny Snyder, neurology I saw Deonte today reviewed his images his laboratory studies and discussed his case with Michelle Quezada PA-C. Since we saw him yesterday afternoon when he began having articulatory disturbances and subjective numbness of the right hand with some clumsiness is clearly progressed despite the Plavix load and heparinization recommended by the [place] stroke service to a pretty dense hemiparesis with hemisensory disturbance a right upper motor neuron facial as ymmetry and articulation issues and perhaps some word hesitancy The MRI has shown as I suspected, a deep small vessel mediated event in the region of the left thalamus and at this point I certainly would agree with maintenance on 2 antiplatelet drugs i.e. aspirin and Plavix, tapering off the heparin as I do not think it has any role in this particular setting at this point particularly with a fixed deficit and will certainly increase the risk of bleeding, repeating a CT scan of the head in 48 hours to be sure there has been no hemorrhagic transformation and obviously getting rehabilitation involved, getting his blood pressure down into a more acceptable level allowing for some continued permissive hypertension for another day or 2 and following up in our office in [facility] in about 3 to 4 weeks after what I assume will be a stay at a rehabilitation facility Prognosis for these deep small vessel events is generally reasonably good but cannot be guaranteed and I think rehabilitation efforts will help maximize his potential Neurology is going to sign off at this point. Dr. Archibald will be assuming the inpatient consultation service and can be contacted should there be any change in the patient's status or unexpected changes on the nonhand CT scan I recommend be done in 48 hours Danny Snyder MD Jose M Clemons is a 54 year old left handed male with history of Hodgkin's Lymphoma, GERD, COPD. He presented to the [facility] ED with acute right sided weakness which resolved prior to arrival. His SBP was [address] head neck angio obtained without acute findings. Labs with thrombocytopenia (chronic) otherwise unremarkable. He had surgery to removed a port on the right and placement on the left of a new port. He also had excision of a right supra clavicular lymph node which was consistent with Hodgkins lymphoma. He was on aspirin 81 mg prior to admission. the incident happened around 12M when he tried to get a drink and his right side "went out". His girlfriend got him a chair to sit on and he thinks it lasted about 10 minutes. His girlfriend called 911 and the EMG put him on 10 L O2 which he thinks helped. Yesterday after the initial assessment he had an episode of dysphasia and right sided weakness. He was transferred to the ICU for close observation. 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 denies CP, SOB, abdominal pain, numbness tingling, falls, headache, vision changes, +right sided weakness, UE/LE Review of Systems Review of Systems: All systems reviewed & are unremarkable except as noted in HPI & below and All systems reviewed & are unremarkable except as noted in Subjective Physical Exam Physical Exam: Physical Exam: Constitutional: appearance over nourished Ears, Nose, Mouth and Throat: mucous membranes moist, no injection and skin normal, eyes normal Cardiovascular: normal S-1 and S-2 and regular rate and rhythm Respiratory: clear to auscultation (CTA) and no rales, ronchi or wheeze Musculoskeletal: good distal pulses Skin: no stigmata of neurocutaneous disease noted and normal and intact Eyes: extraocular muscles intact (EOMI) and pupils equal, round and reactive to light (PERRL) NEUROLOGIC EXAMINATION: Mental status: Alert and interactive Oriented to full date and location Oriented to person Speech dysphasia with articulation of words Cranial Nerves right facial droop Reflexes: Deep tendon reflexes were symmetrical and graded 2/5. down going toes Sensory: light cool touch intact Coordination: unable to lift right arm/leg with gravity unable to plantar flex ext on right, unable to hand dry primer powder blender on right Gait/Stance: Posture lying in bed Motor: able to lift left arm Strength: hand dry primer powder blender biceps triceps 5/5 left hip flex plantar flex ext 5/5 left Results & Data ([facility]) Vital Signs (Past 12 Hours) Vital Signs Pulse Resp BP Pulse Ox 03/26/20 12:30 87 15 168/85 H 93 03/26/20 10:00 91 H 19 172/83 H 96 03/26/20 09:30 90 18 161/70 H 98 03/26/20 09:00 95 H 19 157/85 H 96 03/26/20 08:30 82 16 164/89 H 98 03/26/20 08:00 78 15 156/71 H 97 03/26/20 07:30 85 19 171/81 H 97 03/26/20 07:00 81 19 174/78 H 97 03/26/20 06:31 90 18 97 03/26/20 06:30 101 H 26 H 176/97 H 97 03/26/20 06:01 75 18 97 03/26/20 06:00 78 17 147/76 H 97 03/26/20 05:31 102 H 26 H 97 03/26/20 05:30 96 H 29 H 184/89 H 97 03/26/20 05:23 89 24 192/83 H 97 03/26/20 05:01 83 18 97 03/26/20 05:00 96 H 21 197/86 H 98 03/26/20 04:50 86 21 98 03/26/20 04:40 84 23 97 03/26/20 04:38 82 22 185/90 H 94 03/26/20 04:31 86 23 98 03/26/20 04:30 88 23 204/109 H 98 03/26/20 04:20 85 21 98 03/26/20 04:10 87 29 H 95 03/26/20 04:01 81 17 95 03/26/20 04:00 84 20 176/80 H 96 03/26/20 03:50 80 16 96 03/26/20 03:40 90 19 95 03/26/20 03:31 92 H 16 99 03/26/20 03:30 93 H 18 169/92 H 98 03/26/20 03:20 73 15 97 Laboratory Results Abnormal lab results 03/25/20 03/25/20 03/26/20 Range/Units 17:10 23:44 04:52 WBC 4.22 L (4.8-10.8) K/uL RBC 4.51 L (4.7-6.1) M/uL Hgb 13.6 L (14.0-18.0) g/dL Hct 39.3 L (42-52) % Plt Count 113 L (130-400) K/uL [place] # (Auto) 0.62 H (0.11-0.59) K/uL Potassium (3.5-5.1) mmol/L Chloride (98-107) mmol/L BUN/Creatinine Ratio (10-20) Glucose (70-99) mg/dl POC Glucose 104 H 118 H (70-99) mg/dl Triglycerides (0-150) mg/dl 03/26/20 Range/Units 04:52 WBC (4.8-10.8) K/uL RBC (4.7-6.1) M/uL Hgb (14.0-18.0) g/dL Hct (42-52) % Plt Count (130-400) K/uL [place] # (Auto) (0.11-0.59) K/uL Potassium 3.3 L (3.5-5.1) mmol/L Chloride 109 H (98-107) mmol/L BUN/Creatinine Ratio 20.1 H (10-20) Glucose 103 H (70-99) mg/dl POC Glucose (70-99) mg/dl Triglycerides 156 H (0-150) mg/dl Diagnostic Findings MRI brain without contrast-Interval development of a 1.4 x 0.5 cm acute infarct within the lateral left thalamus and posterior limb of the left internal capsule since MRI of March 25, 2020. No associated hemorrhage or mass effect. Otherwise, unchanged appearance of the brain, as described above. CTA head neck - repeated no new findings
[2020-03-26] MEDS: PANTOprazole 40 MG TAB PO SCH (18:05)
[2020-03-26] MEDS: valACYclovir HCL 500 MG TABLET PO SCH (20:09)
[2020-03-26] MEDS: ACETAMINOPHEN 1,000 MG/100 ML VIAL IV PRN (22:32)
[2020-03-26] MEDS: oxyCODONE HCL IR 5 MG TAB (IMMEDIATE RELEASE) PO PRN (23:53)
[2020-03-27 04:46] LABS: Hematocrit (blood only) 40.3 % (42-52); Hemoglobin 13.8 g/dL (14.0-18.0); Mean Corpuscular Hemoglobin 29.9 pg (25-34); Mean Corpuscular Hgb Conc 34.2 g/dL (32-36); Mean Corpuscular Volume 87.4 fL (80-100); RDW Coefficient of Variation 14.1 % (11.5-14.5); Red Blood Count 4.61 M/uL (4.7-6.1); White Blood Count 4.75 K/uL (4.8-10.8)
[2020-03-27 05:17] LABS: BUN Creatinine Ratio 20.8 (10-20); Calcium 8.9 mg/dl (8.5-10.1); Est GFR (African American) 130.3; Est GFR (Non-African American) 112.5; Magnesium 2.2 mg/dl (1.8-2.4); Phosphorus 3.6 mg/dl (2.5-4.9); Potassium 3.5 mmol/L (3.5-5.1)
[2020-03-27 05:22] LABS: Basophils # (auto) 0.02 K/uL (0-0.2); Basophils % (auto) 0.4 %; Eosinophils # (auto) 0.37 K/uL (0-0.5); Eosinophils % (auto) 7.8 %; Immature Granulocytes # (auto) 0.01 K/uL (0.00-0.02); Immature Granulocytes % (auto) 0.2 %; Lymphocytes # (auto) 1.35 K/uL (1.2-3.4); Lymphocytes % (auto) 28.4 %; Mean Platelet Volume 9.4 fL (7.4-10.4); Monocytes # (auto) 0.57 K/uL (0.11-0.59); Neutrophils # (auto) 2.43 K/uL (1.4-6.5); Neutrophils % (auto) 51.2 %; Platelet Count 96 K/uL (130-400); Platelet Estimate Decreased (Normal); RBC Morphology Unremarkable
--- NOTE | 2020-03-27 07:43 | Billing Data ---
Date of Service March 27, 2020 Coding Level of Care Code 70249 Subseq Hosp Care Lvl 3
--- NOTE | 2020-03-27 07:50 | Critical Care Progress Note ---
Date of Service March 27, 2020 Assessment & Plan (1) Acute ischemic stroke: Reason critically ill: 54-year-old male admitted for TIA presented to the ICU with strokelike symptoms and hypertensive urgency. Was evaluated by [facility] which did not recommend administering TPA. Stable for downgrade from ICU level of care. Neuro: -CVA -Patient was initially admitted this morning following an episode of strokelike symptoms that previously resolved with picture of TIA. Initial CT head and neck and MRI negative. Patient became symptomatic again last night and stroke alert was initiated subsequent CT head, and CTA did not demonstrate interval changes. -Evaluated by [facility] and patient was not candidate for TPA -Given loading dose IV Plavix per neurology recommendations in addition to ASA -MRI brain from 03/26 demonstrated interval development of a 1.4 x 0.5 cm acute infarct within the left lateral thalamus and posterior limb of the left internal capsule as compared to MRI from 03/25 -Neurology following, appreciate recommendations -OT, PT consulted -Continue Plavix, ASA 81 -Continue atorvastatin 80 -Continue monitoring frequent neuro checks/NIH scores. -Permissive hypertension goal SBP 160-190 until 48 hours s/p stroke Cardiac/Vascular: -Hypertensive urgencypatient with SBP's greater than 200. Was initially given 20 mg of labetalol without benefit and started on a Cardene drip. -Goal to allow permissive hypertension given neuro management with SBP 160- 190 -Increase amlodipine to 5mg -Continue as needed hydralazine/labetalol for SBP >190 -Continuous monitor on telemetry Respiratory: -History of reactive airway disease/COPD, currently maintaining appropriate oxygenation on room air -History of right lower lobectomy -DuoNebs as needed -Continue to monitor on pulse ox GI/Nutrition: -Speech evaluation demonstrated toleration of regular diet without signs of aspiration -Regular diet Renal/Lytes: -Creatinine within normal limits -Continue to monitor routine BMPs, and replete as needed : -Strict I's and O's ENDO: -no history of diabetes or thyroid disease -Continue to monitor per ICU glycemic protocol -Non-Hodgkin's lymphoma: s/p chemotherapy, follows with [facility] oncology HEME: -Hemoglobin stable at 13.6 -monitor routine CBCs ID: -No indication for infectious process at this time. Lines/IV Access: -Left subclavian DVT prophylaxis: -SubQ heparin (2) Hypertensive urgency: (3) Hodgkin's disease: (4) Pneumonia: (5) Malignant lymphoma: (6) Esophageal reflux: (7) Castleman's disease: Admission and Anticipated Discharge Date Admission Date: March 26, 2020 Supervising Physician Co-Signing Physician Notes Dr. Frye was resident physician during care of patient. I separately evaluated patient for lopez portions of the history and the exam. I was present during the critical portion of medical decision making, and I discussed the case with the resident. I generally agree with the findings and plan. Stable for downgrade to telemetry status, permissive hypertension today and consider decrease tomorrow amlodipine increased from 2.5 to 5 mg. Subjective Patient this morning feels overall better, has been actively working on getting more range of motion of his upper and lower extremities. Feels like he is gotten significant improvement in his right leg and shoulder but no good improvement in motion of his hand or forearm. Did have a couple episodes overnight of blood pressure greater than 190 and require PRN medications Review of Systems Review of Systems: All systems reviewed & are unremarkable except as noted in Subjective Physical Exam Constitutional: well developed and well nourished Eyes: PERRL, conjunctivae normal, anicteric sclerae Neck: normal visual inspection and trachea midline Respiratory: normal respiratory effort and + respiratory distress; no labored breathing and no retractions Auscultation: lungs clear to auscultation bilaterally Cardiovascular: Rate/Rhythm: regular rate and regular rhythm Heart Sounds: no gallop, no murmur and no cardiac rub Palpation: no thrill Vessels: normal peripheral pulses; no JVD Gastrointestinal (Abdomen): normal bowel sounds, soft, nontender, no hepatosplenomegaly Musculoskeletal: Extremities: + limited ROM of extremities (Right upper 2/5 and right lower 3 out of 5) Neurologic: Cranial Nerves: PERRL, EOM intact bilaterally, tongue midline and able to rotate head bilaterally; + abnormal facial strength (Right-sided facial droop) and + not able to elevate shoulders (3/5 on right shoulder) Psychiatric: Orientation: alert and oriented x 3 Results & Data Results & Data ([facility]) Vital Signs (Past 12 Hours) Vital Signs Temp Pulse Resp BP Pulse Ox 03/27/20 06:30 79 20 93 03/27/20 06:22 84 20 198/90 H 95 02/05/21 06:00 87 18 92 03/27/20 05:30 81 21 93 03/27/20 05:22 82 26 H 176/76 H 93 03/27/20 05:00 88 27 H 94 03/27/20 04:30 79 19 92 03/27/20 04:23 80 17 196/80 H 93 03/27/20 04:15 36.8 C 03/27/20 04:00 89 19 93 03/27/20 03:31 81 20 195/85 H 93 03/27/20 03:30 78 17 93 03/27/20 03:22 80 18 195/85 H 93 03/27/20 03:00 82 19 93 03/27/20 02:30 81 18 93 03/27/20 02:22 82 22 184/81 H 93 03/27/20 02:00 81 21 93 03/27/20 01:30 90 18 93 03/27/20 01:22 85 20 170/79 H 92 03/27/20 01:00 79 19 92 03/27/20 00:33 86 23 178/79 H 92 03/27/20 00:30 91 H 23 92 03/27/20 00:22 87 24 206/93 H 92 03/27/20 00:00 91 H 24 92 03/26/20 23:30 96 H 20 93 03/26/20 23:23 96 H 18 205/78 H 93 03/26/20 23:15 36.7 C 03/26/20 23:13 86 21 93 03/26/20 23:12 97 H 21 176/85 H 93 03/26/20 23:00 100 H 23 204/84 H 94 03/26/20 22:39 94 03/26/20 22:22 96 H 19 208/115 H 94 03/26/20 22:00 88 24 95 03/26/20 21:00 93 H 22 94 03/26/20 20:22 92 H 21 198/88 H 95 03/26/20 20:00 37.7 C H 95 H 19 95 Laboratory Results 03/27/20 03/27/20 Range/Units 04:32 04:32 WBC 4.75 L (4.8-10.8) K/uL RBC 4.61 L (4.7-6.1) M/uL Hgb 13.8 L (14.0-18.0) g/dL Hct 40.3 L (42-52) % MCV 87.4 (80-100) fL MCH 29.9 (25-34) pg MCHC 34.2 (32-36) g/dL RDW Std Deviation 45.0 (36.4-46.3) fL RDW Coeff of Maia 14.1 (11.5-14.5) % Plt Count 96 L (130-400) K/uL MPV 9.4 (7.4-10.4) fL Immature Gran % (Auto) 0.2 % Neut % (Auto) 51.2 % Lymph % (Auto) 28.4 % Brewster % (Auto) 12.0 % Eos % (Auto) 7.8 % Baso % (Auto) 0.4 % Neut # (Auto) 2.43 (1.4-6.5) K/uL Lymph # (Auto) 1.35 (1.2-3.4) K/uL Brewster # (Auto) 0.57 (0.11-0.59) K/uL Eos # (Auto) 0.37 (0-0.5) K/uL Baso # (Auto) 0.02 (0-0.2) K/uL Immature Gran # (Auto) 0.01 (0.00-0.02) K/uL Platelet Estimate Decreased L (Normal) RBC Morphology Unremarkable Sodium 139 (136-145) mmol/L Potassium 3.5 (3.5-5.1) mmol/L Chloride 107 (98-107) mmol/L Carbon Dioxide 25 (21-32) mmol/L Anion Gap 7.0 (3-11) BUN 13 (7-18) mg/dl Creatinine 0.62 (0.6-1.4) mg/dl Est Cr Clr Drug Dosing 183.0 ml/min Est GFR ( Amer) 130.3 Est GFR (Non-Af Amer) 112.5 BUN/Creatinine Ratio 20.8 H (10-20) Glucose 101 H (70-99) mg/dl Calcium 8.9 (8.5-10.1) mg/dl Phosphorus 3.6 (2.5-4.9) mg/dl Magnesium 2.2 (1.8-2.4) mg/dl Medications Administered Current Inpatient Medications Acetaminophen (Acetaminophen 325 Mg Tab) 650 mg PO Q4H PRN PRN Reason: Pain or Fever Stop: 04/24/20 05:22 Last Admin: 03/27/20 10:04 Dose: 650 mg Documented by: Albuterol (Albut/Ipratrop 3mg/0.5mg Neb 3 Ml Vial) 3 ml INH Q4H PRN PRN Reason: Shortness Of Breath Stop: 04/24/20 05:22 Amlodipine Besylate (Amlodipine Besylate 5 Mg Tab) 5 mg PO DAILY [facility] Stop: 04/26/20 08:59 Last Admin: 03/27/20 08:29 Dose: 5 mg Documented by: Aspirin (Aspirin 81 Mg Ectab) 81 mg PO [facility] Stop: 04/25/20 08:59 Last Admin: 03/27/20 08:30 Dose: 81 mg Documented by: Atorvastatin Calcium (Atorvastatin 40 Mg Tab) 80 mg PO [facility] Stop: 04/25/20 13:14 Last Admin: 03/27/20 08:30 Dose: 80 mg Documented by: Buspirone HCl (Buspirone 15 Mg Tab) 15 mg PO BID [facility] Stop: 04/24/20 08:59 Last Admin: 03/27/20 08:30 Dose: 15 mg Documented by: Clopidogrel Bisulfate (Clopidogrel Bisulfate 75 Mg Tab) 75 mg PO [facility] Stop: 04/25/20 08:59 Last Admin: 03/27/20 08:29 Dose: 75 mg Documented by: Escitalopram Oxalate (Escitalopram Oxalate 20 Mg Tab) 20 mg PO [facility] Stop: 04/24/20 08:59 Last Admin: 03/27/20 08:29 Dose: 20 mg Documented by: Heparin Sodium (Porcine) (Heparin 100 Unit/Ml 5ml Flush) 5 ml FLUSH PRN PRN PRN Reason: Flush Stop: 04/24/20 19:42 Heparin Sodium (Porcine) (Heparin Sod 5,000 Unit/0.5 Ml Vial) 5,000 units SQ Q12 [facility] Stop: 04/24/20 20:59 Last Admin: 03/27/20 08:30 Dose: 5,000 units Documented by: Hydralazine HCl (Hydralazine Hcl 20 Mg/Ml Vial) 10 mg IV Q4H PRN PRN Reason: hypertension Stop: 04/25/20 05:00 Last Admin: 03/26/20 22:32 Dose: 10 mg Documented by: Promethazine HCl 12.5 mg/ (Sodium Chloride) 50.5 mls @ 202 mls/hr IV Q6H PRN PRN Reason: Nausea And Vomiting Stop: 04/24/20 05:22 Lorazepam (Ativan) 0.5 mg in 1 mls @ 1 mls/min IV Q4H PRN PRN Reason: Anxiety/Agitation Stop: 04/24/20 05:22 Last Admin: 03/26/20 05:23 Dose: 1 mls/min Documented by: Labetalol HCl (Labetalol Hcl Iv 5 Mg/Ml 20ml) 10 mg IV Q2H PRN PRN Reason: Hypertension Stop: 04/25/20 05:00 Last Admin: 03/26/20 23:35 Dose: 10 mg Documented by: Oxycodone HCl (Oxycodone Hcl Ir 5 Mg Tab (Immediate Release)) 5 mg PO Q4H PRN PRN Reason: Pain Stop: 04/08/20 05:22 Last Admin: 03/26/20 23:53 Dose: 5 mg Documented by: Pantoprazole Sodium (Pantoprazole 40 Mg Tab) 40 mg PO QAM [facility] Stop: 04/25/20 14:59 Last Admin: 03/27/20 08:33 Dose: 40 mg Documented by: Valacyclovir HCl (Valacyclovir Hcl 500 Mg Tablet) 500 mg PO PM [facility] Stop: 04/24/20 20:59 Last Admin: 03/26/20 20:09 Dose: 500 mg Documented by: Resident Activity Tracking Resident Involvement: Resident Care Provided Care Provided: Adult Hospital Medicine (1) Hodgkin's disease Hodgkin lymphoma type: unspecified type Lymphoma site: unspecified region Qualified Code(s): C81.90 - Hodgkin lymphoma, unspecified, unspecified site
[2020-03-27] MEDS: ESCITALOPRAM OXALATE 20 MG TAB PO SCH (08:29)
[2020-03-27] MEDS: amLODIPine BESYLATE 5 MG TAB PO SCH (08:29)
[2020-03-27] MEDS: CLOPIDOGREL BISULFATE 75 MG TAB PO SCH (08:29)
[2020-03-27] MEDS: ASPIRIN 81 MG ECTAB PO SCH (08:30)
[2020-03-27] MEDS: busPIRone 15 MG TAB PO SCH ×2 (08:30→20:32)
[2020-03-27] MEDS: ATORVASTATIN 40 MG TAB PO SCH (08:30)
[2020-03-27] MEDS: HEPARIN SOD 5,000 UNIT/0.5 ML VIAL SQ SCH ×2 (08:30→20:32)
[2020-03-27] MEDS: PANTOprazole 40 MG TAB PO SCH (08:33)
[2020-03-27] MEDS: ACETAMINOPHEN 325 MG TAB PO PRN ×2 (10:04→21:53)
[2020-03-27] MEDS ORDERED: POTASSIUM CHLORIDE 10 MEQ TABCR PO ONE (11:31)
--- NOTE | 2020-03-27 11:51 | Hospitalist Progress Note ---
Date of Service March 27, 2020 Assessment & Plan (1) Acute ischemic stroke: Admitted with TIA as documented below Now has acute infarct within the lateral left thalamus and posterior limb of the left internal capsule 1.4 x 0.5 cm Did not receive any TPA due to very high blood pressure Received loading dose of Plavix and now continues to get aspirin 81 mg and Plavix 75 mg daily and a statin Speech evaluation, PT and OT Has been improving with improvement of power in the right side extremities Right upper extremity remains weaker than the lower Continue PT and OT Will need rehab on discharge Events from 03/25/2020 At around 3:40 PM while he was being seen by the neurologist he has had an episode of right-sided numbness and weakness exactly the way he was admitted to the hospital early that morning. I was informed and I saw the patient with objective findings of weakness in the right-sided extremities and questionable right facial droop without any visual symptoms. She was given loading dose of Plavix with 600 mg in total for the day and advised to stay in the hospital. At around 5:10 PM during suppertime the caring nurse informed me that he is unable to use his right upper extremity to eat and also having garbled speech and right facial droop. I immediately examined him at the time and has had objective findings of his complaints and immediately called for stroke alert. He was moved to ICU and relevant CT of the head, CTA of the head and neck were unremarkable as before and he was evaluated by Dr. Moran the on-call [facility] tele-neurologist. Due to severe high blood pressure with systolic above 225 which was not immediately controlled with intravenous labetalol and required IV Cardene drip to reasonably control the blood pressure but TPA was not given due to very high blood pressure. His aspirin and Plavix were continued and he remained in ICU for continuation of care. (2) TIA (transient ischemic attack): Presented with right-sided numbness and weakness which resolved following admission and recurred thereafter Initial investigations including CT of the head, CTA of the head and neck and echo were unremarkable Was getting aspirin 81 mg and Plavix and is about to leave the hospital During neurology evaluation by the neurologist he suffered another attack of numbness and weakness involving right side and subsequently he ended up with a stroke as mentioned above (3) Hypertensive urgency: He was on amlodipine as an outpatient but has not been taking that medicine to control blood pressure His systolic blood pressure is noted to be high at 210 with diastolic 116 at presentation to the emergency room Initial symptoms of TIA was thought to be due to hypertensive urgency Permissive hypertension maintained and he was given amlodipine 2.5 mg Noted to have severe hypertension in the ICU during the second episode of strokelike symptoms which required control with intravenous Cardene and the patient did not receive any TPA due to very high blood pressure Blood pressure seems to be stable since this morning He required 1 or 2 doses of intravenous medicine to control the blood pressure last night Has been back on Norvasc 5 mg a day-he was on 10 mg but was not taking it as an outpatient If the blood pressure remains elevated will add small dose of beta-jaci therapy and increasing the dose of Norvasc to 10 mg (4) H/O Hodgkin's lymphoma: 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, patient [facility] with [facility] Received last chemotherapy in 2009 Now has generalized lymphadenopathy as per the CT scans Will have a follow-up appointment with oncologist as an outpatient (5) Esophageal reflux: Will start Protonix (6) History of lobectomy of lung: No acute issues History of COPD Seems to be stable DVT prophylaxis Has chronic thrombocytopenia with platelet count more than 100 We will put him on subcu heparin CODE STATUS Full Admission and Anticipated Discharge Date Admission Date: March 26, 2020 Subjective 03/26/2020 The patient was seen and examined in ICU He has been feeling a little better with improved speech, right facial droop and no visual abnormalities but continues to have right extremities weakness Denies any other significant symptoms Events from 03/25/2020 He was about to leave the hospital after being evaluated by neurologist At around 3:40 PM while he was being seen by the neurologist he has had an episode of right-sided numbness and weakness exactly the way he was admitted to the hospital early that morning. I was informed and I saw the patient with objective findings of weakness in the right-sided extremities and questionable right facial droop without any visual symptoms. She was given loading dose of Plavix with 600 mg in total for the day and advised to stay in the hospital. At around 5:10 PM during suppertime the caring nurse informed me that he is unable to use his right upper extremity to eat and also having garbled speech and right facial droop. I immediately examined him at the time and has had objective findings of his complaints and immediately called for stroke alert. He was moved to ICU and relevant CT of the head, CTA of the head and neck were unremarkable as before and he was evaluated by Dr. Moran the on-call [facility] tele-neurologist. Due to severe high blood pressure with systolic above 225 whi ch was not immediately controlled with intravenous labetalol and required IV Cardene drip to reasonably control the blood pressure but TPA was not given due to very high blood pressure. His aspirin and Plavix were continued and he remained in ICU for continuation of care. 03/27/2020 The patient was seen and examined in ICU He has been feeling a little bit better and complains to have right upper e xtremity weakness more than the right lower extremity Does not have any sensory abnormality and does not have any problem with speech and her vision Blood pressure remains on the higher side Review of Systems Review of Systems: All systems reviewed and are unremarkable except as noted below Neurologic: Alert, awake and oriented x3.no dysarthria with minimal right facial droop .no visual symptoms . Weakness involving the right-sided extremities are improving. Physical Exam Physical Exam: Lying in bed comfortably Constitutional: well developed, well nourished and + obese; not ill appearing Eyes: PERRL, conjunctivae normal, anicteric sclerae ENMT: external ear and nose normal, oropharynx normal Neck: trachea midline, no thyromegaly Respiratory: no respiratory distress Auscultation: lungs clear to auscultation bilaterally Cardiovascular: Rate/Rhythm: regular rate and regular rhythm Heart Sounds: no murmur Extremities: no edema Gastrointestinal (Abdomen): Inspection/Auscultation: abdomen not distended Percussion/Palpation: abdomen soft; abdomen nontender Musculoskeletal: No arthritis involving any joint Neurologic: Alert, awake and oriented x3, right-sided extremities weakness as above. Psychiatric: A+Ox3, euthymic affect Lymphatic: no cervical or axillary lymphadenopathy Results & Data Results & Data ([facility]) Vital Signs (Past 12 Hours) Vital Signs Temp Pulse Resp BP Pulse Ox 03/27/20 10:22 99 H 13 186/87 H 96 03/27/20 09:22 87 20 176/74 H 94 03/27/20 08:23 94 H 21 168/84 H 93 03/27/20 07:23 85 13 169/78 H 94 03/27/20 06:30 79 20 93 03/27/20 06:22 84 20 198/90 H 95 03/27/20 06:00 87 18 92 03/27/20 05:30 81 21 93 03/27/20 05:22 82 26 H 176/76 H 93 03/27/20 05:00 88 27 H 94 03/27/20 04:30 79 19 92 03/27/20 04:23 80 17 196/80 H 93 03/27/20 04:15 36.8 C 03/27/20 04:00 89 19 93 03/27/20 03:31 81 20 195/85 H 93 03/27/20 03:30 78 17 93 03/27/20 03:22 80 18 195/85 H 93 03/27/20 03:00 82 19 93 03/27/20 02:30 81 18 93 03/27/20 02:22 82 22 184/81 H 93 03/27/20 02:00 81 21 93 03/27/20 01:30 90 18 93 03/27/20 01:22 85 20 170/79 H 92 03/27/20 01:00 79 19 92 03/27/20 00:33 86 23 178/79 H 92 03/27/20 00:30 91 H 23 92 03/27/20 00:22 87 24 206/93 H 92 03/27/20 00:00 91 H 24 92 Laboratory Results Short CBC 03/27/20 Range/Units 04:32 WBC 4.75 L (4.8-10.8) K/uL Hgb 13.8 L (14.0-18.0) g/dL Hct 40.3 L (42-52) % Plt Count 96 L (130-400) K/uL BMP 03/27/20 04:32 Sodium 139 Potassium 3.5 Chloride 107 Carbon Dioxide 25 BUN 13 Creatinine 0.62 Glucose 101 H Calcium 8.9 Medications Administered Current Inpatient Medications Acetaminophen (Acetaminophen 325 Mg Tab) 650 mg PO Q4H PRN PRN Reason: Pain or Fever Stop: 04/24/20 05:22 Last Admin: 03/27/20 10:04 Dose: 650 mg Documented by: Albuterol (Albut/Ipratrop 3mg/0.5mg Neb 3 Ml Vial) 3 ml INH Q4H PRN PRN Reason: Shortness Of Breath Stop: 04/24/20 05:22 Amlodipine Besylate (Amlodipine Besylate 5 Mg Tab) 5 mg PO DAILY [facility] Stop: 04/26/20 08:59 Last Admin: 03/27/20 08:29 Dose: 5 mg Documented by: Aspirin (Aspirin 81 Mg Ectab) 81 mg PO QAM [facility] Stop: 04/25/20 08:59 Last Admin: 03/27/20 08:30 Dose: 81 mg Documented by: Atorvastatin Calcium (Atorvastatin 40 Mg Tab) 80 mg PO [facility] Stop: 04/25/20 13:14 Last Admin: 03/27/20 08:30 Dose: 80 mg Documented by: Buspirone HCl (Buspirone 15 Mg Tab) 15 mg PO BID [facility] Stop: 04/24/20 08:59 Last Admin: 03/27/20 08:30 Dose: 15 mg Documented by: Clopidogrel Bisulfate (Clopidogrel Bisulfate 75 Mg Tab) 75 mg PO [facility] Stop: 04/25/20 08:59 Last Admin: 03/27/20 08:29 Dose: 75 mg Documented by: Escitalopram Oxalate (Escitalopram Oxalate 20 Mg Tab) [facility] Stop: 04/24/20 08:59 Last Admin: 03/27/20 08:29 Dose: 20 mg Documented by: Heparin Sodium (Porcine) (Heparin 100 Unit/Ml 5ml Flush) 5 ml FLUSH PRN PRN PRN Reason: Flush Stop: 04/24/20 19:42 Heparin Sodium (Porcine) (Heparin Sod 5,000 Unit/0.5 Ml Vial) 5,000 units SQ Q12 [facility] Stop: 04/24/20 20:59 Last Admin: 03/27/20 08:30 Dose: 5,000 units Documented by: Hydralazine HCl (Hydralazine Hcl 20 Mg/Ml Vial) 10 mg IV Q4H PRN PRN Reason: hypertension Stop: 04/25/20 05:00 Last Admin: 03/26/20 22:32 Dose: 10 mg Documented by: Promethazine HCl 12.5 mg/ (Sodium Chloride) 50.5 mls @ 202 mls/hr IV Q6H PRN PRN Reason: Nausea And Vomiting Stop: 04/24/20 05:22 Lorazepam (Ativan) 0.5 mg in 1 mls @ 1 mls/min IV Q4H PRN PRN Reason: Anxiety/Agitation Stop: 04/24/20 05:22 Last Admin: 03/26/20 05:23 Dose: 1 mls/min Documented by: Labetalol HCl (Labetalol Hcl Iv 5 Mg/Ml 20ml) 10 mg IV Q2H PRN PRN Reason: Hypertension Stop: 04/25/20 05:00 Last Admin: 03/26/20 23:35 Dose: 10 mg Documented by: Miscellaneous (Icu Protocol For Hyperglycemia) 1 ea N/A PRN PRN; Protocol PRN Reason: Hyperglycemia Protocol Stop: 03/28/20 10:16 Oxycodone HCl (Oxycodone Hcl Ir 5 Mg Tab (Immediate Release)) 5 mg PO Q4H PRN PRN Reason: Pain Stop: 04/08/20 05:22 Last Admin: 03/26/20 23:53 Dose: 5 mg Documented by: Pantoprazole Sodium (Pantoprazole 40 Mg Tab) 40 mg PO QAM [facility] Stop: 04/25/20 14:59 Last Admin: 03/27/20 08:33 Dose: 40 mg Documented by: Valacyclovir HCl (Valacyclovir Hcl 500 Mg Tablet) 500 mg PO PM [facility] Stop: 04/24/20 20:59 Last Admin: 03/26/20 20:09 Dose: 500 mg Documented by:
[2020-03-27] MEDS: valACYclovir HCL 500 MG TABLET PO SCH (20:32)
[2020-03-28 05:12] LABS: Basophils # (auto) 0.02 K/uL (0-0.2); Basophils % (auto) 0.4 %; Eosinophils # (auto) 0.38 K/uL (0-0.5); Eosinophils % (auto) 8.1 %; Hematocrit (blood only) 41.3 % (42-52); Hemoglobin 14.4 g/dL (14.0-18.0); Immature Granulocytes # (auto) 0.02 K/uL (0.00-0.02); Immature Granulocytes % (auto) 0.4 %; Lymphocytes % (auto) 27.7 %; Mean Corpuscular Hemoglobin 30.6 pg (25-34); Mean Corpuscular Hgb Conc 34.9 g/dL (32-36); Mean Corpuscular Volume 87.7 fL (80-100); Mean Platelet Volume 9.4 fL (7.4-10.4); Monocytes # (auto) 0.64 K/uL (0.11-0.59); Monocytes % (auto) 13.6 %; Neutrophils # (auto) 2.34 K/uL (1.4-6.5); Neutrophils % (auto) 49.8 %; Platelet Count 106 K/uL (130-400); RDW Coefficient of Variation 14.1 % (11.5-14.5); RDW Standard Deviation 45.8 fL (36.4-46.3); Red Blood Count 4.71 M/uL (4.7-6.1)
[2020-03-28 05:32] LABS: Calcium 8.8 mg/dl (8.5-10.1); Creatinine Clr Calc Pharmacy 162.8 ml/min; Magnesium 2.2 mg/dl (1.8-2.4); Potassium 3.7 mmol/L (3.5-5.1)
[2020-03-28 05:33] LABS: Phosphorus 4.1 mg/dl (2.5-4.9)
[2020-03-28] MEDS: busPIRone 15 MG TAB PO SCH ×2 (09:06→21:32)
[2020-03-28] MEDS: METOPROLOL TARTRATE 25 MG TAB PO SCH ×2 (09:06→21:32)
[2020-03-28] MEDS: ESCITALOPRAM OXALATE 20 MG TAB PO SCH (09:07)
[2020-03-28] MEDS: HEPARIN SOD 5,000 UNIT/0.5 ML VIAL SQ SCH ×2 (09:07→21:32)
[2020-03-28] MEDS: ASPIRIN 81 MG ECTAB PO SCH (09:07)
[2020-03-28] MEDS: ATORVASTATIN 40 MG TAB PO SCH (09:07)
[2020-03-28] MEDS: CLOPIDOGREL BISULFATE 75 MG TAB PO SCH (09:08)
[2020-03-28] MEDS: amLODIPine BESYLATE 5 MG TAB PO SCH (09:08)
[2020-03-28] MEDS: PANTOprazole 40 MG TAB PO SCH (09:08)
[2020-03-28] MEDS: oxyCODONE HCL IR 5 MG TAB (IMMEDIATE RELEASE) PO PRN (09:10)
--- NOTE | 2020-03-28 12:45 | Hospitalist Progress Note ---
Date of Service March 28, 2020 Assessment & Plan (1) Acute ischemic stroke: Admitted with TIA as documented below Now has acute infarct within the lateral left thalamus and posterior limb of the left internal capsule 1.4 x 0.5 cm Did not receive any TPA due to very high blood pressure Received loading dose of Plavix and now continues to get aspirin 81 mg and Plavix 75 mg daily and a statin Speech evaluation, PT and OT Has been improving with improvement of power in the right side extremities Right upper extremity remains weaker than the lower Continue PT and OT Right-sided hemiplegia has been improving Events from 03/25/2020 At around 3:40 PM while he was being seen by the neurologist he has had an episode of right-sided numbness and weakness exactly the way he was admitted to the hospital early that morning. I was informed and I saw the patient with objective findings of weakness in the right-sided extremities and questionable right facial droop without any visual symptoms. She was given loading dose of Plavix with 600 mg in total for the day and advised to stay in the hospital. At around 5:10 PM during suppertime the caring nurse informed me that he is unable to use his right upper extremity to eat and also having garbled speech and right facial droop. I immediately examined him at the time and has had objective findings of his complaints and immediately called for stroke alert. He was moved to ICU and relevant CT of the head, CTA of the head and neck were unremarkable as before and he was evaluated by Dr. Moran the on-call [place] tele-neurologist. Due to severe high blood pressure with systolic above 225 which was not immediately controlled with intravenous labetalol and required IV Cardene drip to reasonably control the blood pressure but TPA was not given due to very high blood pressure. His aspirin and Plavix were continued and he remained in ICU for continuation of care. (2) TIA (transient ischemic attack): Presented with right-sided numbness and weakness which resolved following admission and recurred thereafter Initial investigations including CT of the head, CTA of the head and neck and echo were unremarkable Was getting aspirin 81 mg and Plavix and is about to leave the hospital During neurology evaluation by the neurologist he suffered another attack of numbness and weakness involving right side and subsequently he ended up with a stroke as mentioned above (3) Hypertensive urgency: He was on amlodipine as an outpatient but has not been taking that medicine to control blood pressure His systolic blood pressure is noted to be high at 210 with diastolic 116 at presentation to the emergency room Initial symptoms of TIA was thought to be due to hypertensive urgency Permissive hypertension maintained and he was given amlodipine 2.5 mg Noted to have severe hypertension in the ICU during the second episode of strokelike symptoms which required control with intravenous Cardene and the patient did not receive any TPA due to very high blood pressure Blood pressure seems to be stable since this morning He required 1 or 2 doses of intravenous medicine to control the blood pressure last night Has been back on Norvasc 5 mg a day-he was on 10 mg but was not taking it as an outpatient If the blood pressure remains elevated will add small dose of beta-jaci therapy and increasing the dose of Norvasc to 10 mg Lopressor 25 mg twice daily was added and the blood pressure seems to be improved Will give Toprol-XL 25 mg on discharge (4) H/O Hodgkin's lymphoma: 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, patient follows with [facility] Oncology Received last chemotherapy in 2009 Now has generalized lymphadenopathy as per the CT scans Will have a follow-up appointment with oncologist as an outpatient Lymphadenopathy involving the anterior cervical chain-was advised to make appointment with outpatient oncologist as soon as possible following discharge (5) Esophageal reflux: Will start Protonix (6) History of lobectomy of lung: No acute issues History of COPD Seems to be stable DVT prophylaxis Has chronic thrombocytopenia with platelet count more than 100 We will put him on subcu heparin CODE STATUS Full Admission and Anticipated Discharge Date Admission Date: March 26, 2020 Subjective 03/26/2020 The patient was seen and examined in ICU He has been feeling a little better with improved speech, right facial droop and no visual abnormalities but continues to have right extremities weakness Denies any other significant symptoms Events from 03/25/2020 He was about to leave the hospital after being evaluated by neurologist At around 3:40 PM while he was being seen by the neurologist he has had an episode of right-sided numbness and weakness exactly the way he was admitted to the hospital early that morning. I was informed and I saw the patient with objective findings of weakness in the right-sided extremities and questionable right facial droop without any visual symptoms. She was given loading dose of Plavix with 600 mg in total for the day and advised to stay in the hospital. At around 5:10 PM during suppertime the caring nurse informed me that he is unable to use his right upper extremity to eat and also having garbled speech and right facial droop. I immediately examined him at the time and has had objective findings of his complaints and immediately called for stroke alert. He was moved to ICU and relevant CT of the head, CTA of the head and neck were unremarkable as before and he was evaluated by Dr. Moran the on-call [place] tele-neurologist. Due to severe high blood pressure with systolic above 225 which was not immediately controlled with intravenous labetalol and required IV Cardene drip to reasonably control the blood pressure but TPA was not given due to very high blood pressure. His aspirin and Plavix were continued and he remained in ICU for continuation of care. 03/27/2020 The patient was seen and examined in ICU He has been feeling a little bit better and complains to have right upper extremity weakness more than the right lower extremity Does not have any sensory abnormality and does not have any problem with speech and her vision Blood pressure remains on the higher side 03/28/2020 Patient was seen and examined in ICU He has been feeling a lot better today His right extremities weakness have been improving Still has minimal dysarthria but no visual symptoms Review of Systems Review of Systems: All systems reviewed and are unremarkable except as noted below Neurologic: Alert, awake and oriented x3.no dysarthria with minimal right facial droop .no visual symptoms . Weakness involving the right-sided extremities are improving. Physical Exam Physical Exam: Sitting on a chair without any acute distress Constitutional: well developed, well nourished and + obese; not ill appearing Eyes: PERRL, conjunctivae normal, anicteric sclerae ENMT: external ear and nose normal, oropharynx normal Neck: trachea midline, no thyromegaly Respiratory: no respiratory distress Auscultation: lungs clear to auscultation bilaterally Cardiovascular: Rate/Rhythm: regular rate and regular rhythm Heart Sounds: no murmur Extremities: no edema Gastrointestinal (Abdomen): Inspection/Auscultation: abdomen not distended Percussion/Palpation: abdomen soft; abdomen nontender Musculoskeletal: No acute arthritis in any joint Psychiatric: A+Ox3, euthymic affect Lymphatic: no cervical or axillary lymphadenopathy Results & Data Results & Data ([facility]) Vital Signs (Past 12 Hours) Vital Signs Temp Pulse Pulse Resp BP Pulse Ox 02/06/21 11:12 36.8 C 86 20 131/87 95 03/28/20 07:33 36.7 C 100 H 20 189/91 H 95 03/28/20 04:30 90 16 03/28/20 04:00 85 17 Laboratory Results Short CBC 03/28/20 Range/Units 05:05 WBC 4.70 L (4.8-10.8) K/uL Hgb 14.4 (14.0-18.0) g/dL Hct 41.3 L (42-52) % Plt Count 106 L (130-400) K/uL BMP 03/28/20 05:05 Sodium 141 Potassium 3.7 Chloride 109 H Carbon Dioxide 26 BUN 17 Creatinine 0.70 Glucose 90 Calcium 8.8 Medications Administered Current Inpatient Medications Acetaminophen (Acetaminophen 325 Mg Tab) 650 mg PO Q4H PRN PRN Reason: Pain or Fever Stop: 04/24/20 05:22 Last Admin: 03/27/20 21:53 Dose: 650 mg Documented by: Albuterol (Albut/Ipratrop 3mg/0.5mg Neb 3 Ml Vial) 3 ml INH Q4H PRN PRN Reason: Shortness Of Breath Stop: 04/24/20 05:22 Amlodipine Besylate (Amlodipine Besylate 5 Mg Tab) 5 mg PO DAILY [facility] Stop: 04/26/20 08:59 Last Admin: 03/28/20 09:08 Dose: 5 mg Documented by: Aspirin (Aspirin 81 Mg Ectab) [facility] Stop: 04/25/20 08:59 Last Admin: 03/28/20 09:07 Dose: 81 mg Documented by: Atorvastatin Calcium (Atorvastatin 40 Mg Tab) [facility] Stop: 04/25/20 13:14 Last Admin: 03/28/20 09:07 Dose: 80 mg Documented by: Buspirone HCl (Buspirone 15 Mg Tab) 15 mg PO BID [facility] Stop: 04/24/20 08:59 Last Admin: 03/28/20 09:06 Dose: 15 mg Documented by: Clopidogrel Bisulfate (Clopidogrel Bisulfate 75 Mg Tab) [facility] Stop: 04/25/20 08:59 Last Admin: 03/28/20 09:08 Dose: 75 mg Documented by: Escitalopram Oxalate (Escitalopram Oxalate 20 Mg Tab) 20 mg PO QAM [facility] Stop: 04/24/20 08:59 Last Admin: 03/28/20 09:07 Dose: 20 mg Documented by: Heparin Sodium (Porcine) (Heparin 100 Unit/Ml 5ml Flush) 5 ml FLUSH PRN PRN PRN Reason: Flush Stop: 04/24/20 19:42 Heparin Sodium (Porcine) (Heparin Sod 5,000 Unit/0.5 Ml Vial) 5,000 units SQ Q12 [facility] Stop: 04/24/20 20:59 Last Admin: 03/28/20 09:07 Dose: 5,000 units Documented by: Hydralazine HCl (Hydralazine Hcl 20 Mg/Ml Vial) 10 mg IV Q4H PRN PRN Reason: hypertension Stop: 04/25/20 05:00 Last Admin: 03/26/20 22:32 Dose: 10 mg Documented by: Promethazine HCl 12.5 mg/ (Sodium Chloride) 50.5 mls @ 202 mls/hr IV Q6H PRN PRN Reason: Nausea And Vomiting Stop: 04/24/20 05:22 Lorazepam (Ativan) 0.5 mg in 1 mls @ 1 mls/min IV Q4H PRN PRN Reason: Anxiety/Agitation Stop: 04/24/20 05:22 Last Admin: 03/26/20 05:23 Dose: 1 mls/min Documented by: Metoprolol Tartrate (Metoprolol Tartrate 25 Mg Tab) 25 mg PO BID [facility] Stop: 04/27/20 08:59 Last Admin: 03/28/20 09:06 Dose: 25 mg Documented by: Oxycodone HCl (Oxycodone Hcl Ir 5 Mg Tab (Immediate Release)) 5 mg PO Q4H PRN PRN Reason: Pain Stop: 04/08/20 05:22 Last Admin: 03/28/20 09:10 Dose: 5 mg Documented by: Pantoprazole Sodium (Pantoprazole 40 Mg Tab) 40 mg PO QAM [facility] Stop: 04/25/20 14:59 Last Admin: 03/28/20 09:08 Dose: 40 mg Documented by: Valacyclovir HCl (Valacyclovir Hcl 500 Mg Tablet) 500 mg PO PM [facility] Stop: 04/24/20 20:59 Last Admin: 03/27/20 20:32 Dose: 500 mg Documented by:
[2020-03-28] MEDS: ACETAMINOPHEN 325 MG TAB PO PRN ×2 (17:15→21:42)
[2020-03-28] MEDS: valACYclovir HCL 500 MG TABLET PO SCH (21:33)
[2020-03-29] MEDS: oxyCODONE HCL IR 5 MG TAB (IMMEDIATE RELEASE) PO PRN ×3 (01:11→20:28)
[2020-03-29] MEDS: HEPARIN SOD 5,000 UNIT/0.5 ML VIAL SQ SCH ×2 (08:21→20:12)
[2020-03-29] MEDS: busPIRone 15 MG TAB PO SCH ×2 (08:21→20:12)
[2020-03-29] MEDS: METOPROLOL TARTRATE 25 MG TAB PO SCH ×2 (08:21→20:12)
[2020-03-29] MEDS: amLODIPine BESYLATE 5 MG TAB PO SCH (08:22)
[2020-03-29] MEDS: PANTOprazole 40 MG TAB PO SCH (08:22)
[2020-03-29] MEDS: ATORVASTATIN 40 MG TAB PO SCH (08:22)
[2020-03-29] MEDS: ASPIRIN 81 MG ECTAB PO SCH (08:22)
[2020-03-29] MEDS: CLOPIDOGREL BISULFATE 75 MG TAB PO SCH (08:23)
[2020-03-29] MEDS: ESCITALOPRAM OXALATE 20 MG TAB PO SCH (08:23)
--- NOTE | 2020-03-29 11:59 | Hospitalist Progress Note ---
Date of Service March 29, 2020 Assessment & Plan (1) Acute ischemic stroke: Admitted with TIA as documented below Now has acute infarct within the lateral left thalamus and posterior limb of the left internal capsule 1.4 x 0.5 cm Did not receive any TPA due to very high blood pressure Received loading dose of Plavix and now continues to get aspirin 81 mg and Plavix 75 mg daily and a statin Speech evaluation, PT and OT Has been improving with improvement of power in the right side extremities Right upper extremity remains weaker than the lower Continue PT and OT Right-sided hemiplegia has been improving Continue PT and OT and [facility]hab tomorrow Events from 03/25/2020 At around 3:40 PM while he was being seen by the neurologist he has had an episode of right-sided numbness and weakness exactly the way he was admitted to the hospital early that morning. I was informed and I saw the patient with objective findings of weakness in the right-sided extremities and questionable right facial droop without any visual symptoms. She was given loading dose of Plavix with 600 mg in total for the day and advised to stay in the hospital. At around 5:10 PM during suppertime the caring nurse informed me that he is unable to use his right upper extremity to eat and also having garbled speech and right facial droop. I immediately examined him at the time and has had objective findings of his complaints and immediately called for stroke alert. He was moved to ICU and relevant CT of the head, CTA of the head and neck were unremarkable as before and he was evaluated by Dr. Moran the on-call [place] tele-neurologist. Due to severe high blood pressure with systolic above 225 which was not immediately controlled with intravenous labetalol and required IV Cardene drip to reasonably control the blood pressure but TPA was not given due to very high blood pressure. His aspirin and Plavix were continued and he remained in ICU for continuation of care. (2) TIA (transient ischemic attack): Presented with right-sided numbness and weakness which resolved following admission and recurred thereafter Initial investigations including CT of the head, CTA of the head and neck and echo were unremarkable Was getting aspirin 81 mg and Plavix and is about to leave the hospital During neurology evaluation by the neurologist he suffered another attack of numbness and weakness involving right side and subsequently he ended up with a stroke as mentioned above (3) Hypertensive urgency: He was on amlodipine as an outpatient but has not been taking that medicine to control blood pressure His systolic blood pressure is noted to be high at 210 with diastolic 116 at presentation to the emergency room Initial symptoms of TIA was thought to be due to hypertensive urgency Permissive hypertension maintained and he was given amlodipine 2.5 mg Noted to have severe hypertension in the ICU during the second episode of strokelike symptoms which required control with intravenous Cardene and the patient did not receive any TPA due to very high blood pressure Blood pressure seems to be stable since this morning He required 1 or 2 doses of intravenous medicine to control the blood pressure last night Has been back on Norvasc 5 mg a day-he was on 10 mg but was not taking it as an outpatient If the blood pressure remains elevated will add small dose of beta-jaci ther apy and increasing the dose of Norvasc to 10 mg Lopressor 25 mg twice daily was added and the blood pressure seems to be improved Will give Toprol-XL 25 mg on discharge Blood pressure seems to be reasonably controlled (4) H/O Hodgkin's lymphoma: 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, [place] [facility] [place] Received last chemotherapy in 2009 Now has generalized lymphadenopathy as per the CT scans Will have a follow-up appointment with oncologist as an outpatient Lymphadenopathy involving the anterior cervical chain-was advised to make appointment with outpatient oncologist as soon as possible following discharge Anterior cervical neck glands remain solid (5) Esophageal reflux: Will start Protonix (6) History of lobectomy of lung: No acute issues History of COPD Seems to be stable DVT prophylaxis Has chronic thrombocytopenia with platelet count more than 100 We will put him on subcu heparin CODE STATUS Full Likely discharge tomorrow Admission and Anticipated Discharge Date Admission Date: March 26, 2020 Subjective 03/26/2020 The patient was seen and examined in ICU He has been feeling a little better with improved speech, right facial droop and no visual abnormalities but continues to have right extremities weakness Denies any other significant symptoms Events from 03/25/2020 He was about to leave the hospital after being evaluated by neurologist At around 3:40 PM while he was being seen by the neurologist he has had an episode of right-sided numbness and weakness exactly the way he was admitted to the hospital early that morning. I was informed and I saw the patient with objective findings of weakness in the right-sided extremities and questionable right facial droop without any visual symptoms. She was given loading dose of Plavix with 600 mg in total for the day and advised to stay in the hospital. At around 5:10 PM during suppertime the caring nurse informed me that he is unable to use his right upper extremity to eat and also having garbled speech and right facial droop. I immediately examined him at the time and has had objective findings of his complaints and immediately called for stroke alert. He was moved to ICU and relevant CT of the head, CTA of the head and neck were unremarkable as before and he was evaluated by Dr. Moran the on-call [place] tele-neurologist. Due to severe high blood pressure with systolic above 225 which was not immediately controlled with intravenous labetalol and required IV Cardene drip to reasonably control the blood pressure but TPA was not given due to very high blood pressure. His aspirin and Plavix were continued and he remained in ICU for continuation of care. 03/27/2020 The patient was seen and examined in ICU He has been feeling a little bit better and complains to have right upper extremity weakness more than the right lower extremity Does not have any sensory abnormality and does not have any problem with speech and her vision Blood pressure remains on the higher side 03/28/2020 Patient was seen and examined in ICU He has been feeling a lot better today His right extremities weakness have been improving Still has minimal dysarthria but no visual symptoms 03/29/2020 The patient was seen and examined in telemetry unit He has been feeling a lot better He has minimal to no dysarthria, no facial asymmetry and his right-sided weakness has been improving Review of Systems Review of Systems: All systems reviewed and are unremarkable except as noted below Neurologic: Alert, awake and oriented x3.no dysarthria with minimal right facial droop .no visual symptoms . Weakness involving the right-sided extremities are improving. Physical Exam Physical Exam: Sitting on a chair without any acute distress Constitutional: well developed, well nourished and + obese; not ill appearing Eyes: PERRL, conjunctivae normal, anicteric sclerae ENMT: external ear and nose normal, oropharynx normal Neck: trachea midline, no thyromegaly Respiratory: no respiratory distress Auscultation: lungs clear to auscultation bilaterally Cardiovascular: Rate/Rhythm: regular rate and regular rhythm Heart Sounds: no murmur Extremities: no edema Gastrointestinal (Abdomen): Inspection/Auscultation: abdomen not distended Percussion/Palpation: abdomen soft; abdomen nontender Musculoskeletal: No acute arthritis in any joint Neurologic: No facial asymmetry. Minimal to no dysarthria. Right-sided extremities power 3-4 over 5 Psychiatric: A+Ox3, euthymic affect Lymphatic: no cervical or axillary lymphadenopathy Results & Data Results & Data ([facility]) Vital Signs (Past 12 Hours) Vital Signs Temp Pulse Pulse Resp BP BP Pulse Ox 03/29/20 10:15 85 03/29/20 08:11 36.7 C 95 H 20 165/96 H 93 03/29/20 04:05 36.8 C 80 18 188/82 H 94 03/29/20 01:41 91 H Medications Administered Current Inpatient Medications Acetaminophen (Acetaminophen 325 Mg Tab) 650 mg PO Q4H PRN PRN Reason: Pain or Fever Stop: 04/24/20 05:22 Last Admin: 03/28/20 21:42 Dose: 650 mg Documented by: Albuterol (Albut/Ipratrop 3mg/0.5mg Neb 3 Ml Vial) 3 ml INH Q4H PRN PRN Reason: Shortness Of Breath Stop: 04/24/20 05:22 Amlodipine Besylate (Amlodipine Besylate 5 Mg Tab) 5 mg PO DAILY [facility] Stop: 04/26/20 08:59 Last Admin: 03/29/20 08:22 Dose: 5 mg Documented by: Aspirin (Aspirin 81 Mg Ectab) 81 mg PO QAM [facility] Stop: 04/25/20 08:59 Last Admin: 03/29/20 08:22 Dose: 81 mg Documented by: Atorvastatin Calcium (Atorvastatin 40 Mg Tab) 80 mg PO QAM [facility] Stop: 04/25/20 13:14 Last Admin: 03/29/20 08:22 Dose: 80 mg Documented by: Buspirone HCl (Buspirone 15 Mg Tab) 15 mg PO BID [facility] Stop: 04/24/20 08:59 Last Admin: 03/29/20 08:21 Dose: 15 mg Documented by: Clopidogrel Bisulfate (Clopidogrel Bisulfate 75 Mg Tab) [facility] Stop: 04/25/20 08:59 Last Admin: 03/29/20 08:23 Dose: 75 mg Documented by: Escitalopram Oxalate (Escitalopram Oxalate 20 Mg Tab) 20 mg PO QAM [facility] Stop: 04/24/20 08:59 Last Admin: 03/29/20 08:23 Dose: 20 mg Documented by: Heparin Sodium (Porcine) (Heparin 100 Unit/Ml 5ml Flush) 5 ml FLUSH PRN PRN PRN Reason: Flush Stop: 04/24/20 19:42 Heparin Sodium (Porcine) (Heparin Sod 5,000 Unit/0.5 Ml Vial) 5,000 units SQ Q12 [facility] Stop: 04/24/20 20:59 Last Admin: 03/29/20 08:21 Dose: 5,000 units Documented by: Hydralazine HCl (Hydralazine Hcl 20 Mg/Ml Vial) 10 mg IV Q4H PRN PRN Reason: hypertension Stop: 04/25/20 05:00 Last Admin: 03/26/20 22:32 Dose: 10 mg Documented by: Promethazine HCl 12.5 mg/ (Sodium Chloride) 50.5 mls @ 202 mls/hr IV Q6H PRN PRN Reason: Nausea And Vomiting Stop: 04/24/20 05:22 Lorazepam (Ativan) 0.5 mg in 1 mls @ 1 mls/min IV Q4H PRN PRN Reason: Anxiety/Agitation Stop: 04/24/20 05:22 Last Admin: 03/26/20 05:23 Dose: 1 mls/min Documented by: Metoprolol Tartrate (Metoprolol Tartrate 25 Mg Tab) 25 mg PO BID [facility] Stop: 04/27/20 08:59 Last Admin: 03/29/20 08:21 Dose: 25 mg Documented by: Oxycodone HCl (Oxycodone Hcl Ir 5 Mg Tab (Immediate Release)) 5 mg PO Q4H PRN PRN Reason: Pain Stop: 04/08/20 05:22 Last Admin: 03/29/20 08:20 Dose: 5 mg Documented by: Pantoprazole Sodium (Pantoprazole 40 Mg Tab) 40 mg PO QAM [facility] Stop: 04/25/20 14:59 Last Admin: 03/29/20 08:22 Dose: 40 mg Documented by: Valacyclovir HCl (Valacyclovir Hcl 500 Mg Tablet) 500 mg PO PM [facility] Stop: 04/24/20 20:59 Last Admin: 03/28/20 21:33 Dose: 500 mg Documented by:
[2020-03-29] MEDS: valACYclovir HCL 500 MG TABLET PO SCH (20:14)
[2020-03-30] MEDS: oxyCODONE HCL IR 5 MG TAB (IMMEDIATE RELEASE) PO PRN ×2 (06:24→20:06)
[2020-03-30 06:56] LABS: Basophils # (auto) 0.03 K/uL (0-0.2); Basophils % (auto) 0.6 %; Eosinophils # (auto) 0.27 K/uL (0-0.5); Eosinophils % (auto) 5.4 %; Hematocrit (blood only) 40.7 % (42-52); Hemoglobin 14.4 g/dL (14.0-18.0); Immature Granulocytes # (auto) 0.02 K/uL (0.00-0.02); Immature Granulocytes % (auto) 0.4 %; Lymphocytes # (auto) 1.53 K/uL (1.2-3.4); Lymphocytes % (auto) 30.4 %; Mean Corpuscular Hemoglobin 30.8 pg (25-34); Mean Corpuscular Hgb Conc 35.4 g/dL (32-36); Mean Platelet Volume 9.5 fL (7.4-10.4); Monocytes # (auto) 0.59 K/uL (0.11-0.59); Monocytes % (auto) 11.7 %; Neutrophils % (auto) 51.5 %; Platelet Count 102 K/uL (130-400); RDW Coefficient of Variation 13.8 % (11.5-14.5); RDW Standard Deviation 43.7 fL (36.4-46.3); Red Blood Count 4.68 M/uL (4.7-6.1); White Blood Count 5.04 K/uL (4.8-10.8)
[2020-03-30 07:24] LABS: BUN Creatinine Ratio 29.2 (10-20); Calcium 9.1 mg/dl (8.5-10.1); Creatinine Clr Calc Pharmacy 149.1 ml/min; Est GFR (African American) 120.5; Potassium 3.8 mmol/L (3.5-5.1)
[2020-03-30] MEDS: PANTOprazole 40 MG TAB PO SCH (07:45)
[2020-03-30] MEDS: HEPARIN SOD 5,000 UNIT/0.5 ML VIAL SQ SCH ×2 (07:45→20:08)
[2020-03-30] MEDS: busPIRone 15 MG TAB PO SCH ×2 (07:45→20:09)
[2020-03-30] MEDS: ATORVASTATIN 40 MG TAB PO SCH (07:46)
[2020-03-30] MEDS: ESCITALOPRAM OXALATE 20 MG TAB PO SCH (07:46)
[2020-03-30] MEDS: METOPROLOL TARTRATE 25 MG TAB PO SCH ×2 (07:46→20:08)
[2020-03-30] MEDS: CLOPIDOGREL BISULFATE 75 MG TAB PO SCH (07:46)
[2020-03-30] MEDS: ASPIRIN 81 MG ECTAB PO SCH (07:46)
[2020-03-30] MEDS: amLODIPine BESYLATE 5 MG TAB PO SCH (07:46)
--- NOTE | 2020-03-30 11:03 | Hospitalist Progress Note ---
Date of Service March 30, 2020 Assessment & Plan (1) Acute ischemic stroke: Admitted with TIA as documented below Now has acute infarct within the lateral left thalamus and posterior limb of the left internal capsule 1.4 x 0.5 cm Did not receive any TPA due to very high blood pressure Received loading dose of Plavix and now continues to get aspirin 81 mg and Plavix 75 mg daily and a statin Speech evaluation, PT and OT Has been improving with improvement of power in the right side extremities Right upper extremity remains weaker than the lower Continue PT and OT Right-sided hemiplegia has been improving Continue PT and OT and will likely go to [facility] for rehab tomorrow Remains stable with further improvement He will be transferred to [facility] this afternoon if approved Events from 03/25/2020 At around 3:40 PM while he was being seen by the neurologist he has had an episode of right-sided numbness and weakness exactly the way he was admitted to the hospital early that morning. I was informed and I saw the patient with objective findings of weakness in the right-sided extremities and questionable right facial droop without any visual symptoms. She was given loading dose of Plavix with 600 mg in total for the day and advised to stay in the hospital. At around 5:10 PM during suppertime the caring nurse informed me that he is unable to use his right upper extremity to eat and also having garbled speech and right facial droop. I immediately examined him at the time and has had objective findings of his complaints and immediately called for stroke alert. He was moved to ICU and relevant CT of the head, CTA of the head and neck were unremarkable as before and he was evaluated by Dr. Moran the on-call [place] tele-neurologist. Due to severe high blood pressure with systolic above 225 which was not immediately controlled with intravenous labetalol and required IV Cardene drip to reasonably control the blood pressure but TPA was not given due to very high blood pressure. His aspirin and Plavix were continued and he remained in ICU for continuation of care. (2) TIA (transient ischemic attack): Presented with right-sided numbness and weakness which resolved following admission and recurred thereafter Initial investigations including CT of the head, CTA of the head and neck and echo were unremarkable Was getting aspirin 81 mg and Plavix and is about to leave the hospital During neurology evaluation by the neurologist he suffered another attack of numbness and weakness involving right side and subsequently he ended up with a stroke as mentioned above (3) Hypertensive urgency: He was on amlodipine as an outpatient but has not been taking that medicine to control blood pressure His systolic blood pressure is noted to be high at 210 with diastolic 116 at presentation to the emergency room Initial symptoms of TIA was thought to be due to hypertensive urgency Permissive hypertension maintained and he was given amlodipine 2.5 mg Noted to have severe hypertension in the ICU during the second episode of strokelike symptoms which required control with intravenous Cardene and the patient did not receive any TPA due to very high blood pressure Blood pressure seems to be stable since this morning He required 1 or 2 doses of intravenous medicine to control the blood pressure last night Has been back on Norvasc 5 mg a day-he was on 10 mg but was not taking it as an outpatient If the blood pressure remains elevated will add small dose of beta-jaci therapy and increasing the dose of Norvasc to 10 mg Lopressor 25 mg twice daily was added and the blood pressure seems to be improved Will give Toprol-XL 25 mg on discharge Blood pressure seems to be reasonably controlled (4) H/O Hodgkin's lymphoma: 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, patient follows with [facility] Oncology Received last chemotherapy in 2009 Now has generalized lymphadenopathy as per the CT scans Will have a follow-up appointment with oncologist as an outpatient Lymphadenopathy involving the anterior cervical chain-was advised to make appointment with outpatient oncologist as soon as possible following discharge Anterior cervical neck glands remain stable-strongly advised to make an appointment with his oncologist as an outpatient (5) Esophageal reflux: Will start Protonix (6) History of lobectomy of lung: No acute issues History of COPD Seems to be stable DVT prophylaxis Has chronic thrombocytopenia with platelet count more than 100 We will put him on subcu heparin CODE STATUS Full Likely discharge this afternoon Admission and Anticipated Discharge Date Admission Date: March 26, 2020 Subjective 03/26/2020 The patient was seen and examined in ICU He has been feeling a little better with improved speech, right facial droop and no visual abnormalities but continues to have right extremities weakness Denies any other significant symptoms Events from 03/25/2020 He was about to leave the hospital after being evaluated by neurologist At around 3:40 PM while he was being seen by the neurologist he has had an episode of right-sided numbness and weakness exactly the way he was admitted to the hospital early that morning. I was informed and I saw the patient with objective findings of weakness in the right-sided extremities and questionable right facial droop without any visual symptoms. She was given loading dose of Plavix with 600 mg in total for the day and advised to stay in the hospital. At around 5:10 PM during suppertime the caring nurse informed me that he is unable to use his right upper extremity to eat and also having garbled speech and right facial droop. I immediately examined him at the time and has had objective findings of his complaints and immediately called for stroke alert. He was moved to ICU and relevant CT of the head, CTA of the head and neck were unremarkable as before and he was evaluated by Dr. Moran the on-call [place] tele-neurologist. Due to severe high blood pressure with systolic above 225 which was not immediately controlled with intravenous labetalol and required IV Cardene drip to reasonably control the blood pressure but TPA was not given due to very high blood pressure. His aspirin and Plavix were continued and he remained in ICU for continuation of care. 03/27/2020 The patient was seen and examined in ICU He has been feeling a little bit better and complains to have right upper extremity weakness more than the right lower extremity Does not have any sensory abnormality and does not have any problem with speech and her vision Blood pressure remains on the higher side 03/28/2020 Patient was seen and examined in ICU He has been feeling a lot better today His right extremities weakness have been improving Still has minimal dysarthria but no visual symptoms 03/29/2020 The patient was seen and examined in telemetry unit He has been feeling a lot better He has minimal to no dysarthria, no facial asymmetry and his right-sided weakness has been improving 03/30/2020 The patient was seen and examined in telemetry unit He has been feeling a lot better and he almost does not have any neurological symptoms Will need physical therapy to continue for further improvement Denies any significant symptoms today Review of Systems Review of Systems: All systems reviewed and are unremarkable except as noted below Neurologic: Alert, awake and oriented x3.no dysarthria with minimal right facial droop .no visual symptoms . Weakness involving the right-sided extremities are improving. Physical Exam Physical Exam: Sitting on a chair without any acute distress Constitutional: well developed, well nourished and + obese; not ill appearing Eyes: PERRL, conjunctivae normal, anicteric sclerae ENMT: external ear and nose normal, oropharynx normal Neck: trachea midline, no thyromegaly Respiratory: no respiratory distress Auscultation: lungs clear to auscultation bilaterally Cardiovascular: Rate/Rhythm: regular rate and regular rhythm Heart Sounds: no murmur Extremities: no edema Gastrointestinal (Abdomen): Inspection/Auscultation: abdomen not distended Percussion/Palpation: abdomen soft; abdomen nontender Musculoskeletal: No acute arthritis in any joint Neurologic: Alert, awake and oriented x3. No dysarthria or no facial asymmetry. Minimal right-sided extremities weakness Psychiatric: A+Ox3, euthymic affect Lymphatic: no cervical or axillary lymphadenopathy Results & Data Results & Data ([facility]) Vital Signs (Past 12 Hours) Vital Signs Temp Pulse Pulse Resp BP Pulse Ox 03/30/20 08:01 36.7 C 85 19 172/76 H 93 03/30/20 08:00 91 H 03/30/20 03:43 36.8 C 83 18 175/75 H 95 03/29/20 23:49 36.9 C 80 20 173/93 H 93 Laboratory Results Short CBC 03/30/20 Range/Units 06:39 WBC 5.04 (4.8-10.8) K/uL Hgb 14.4 (14.0-18.0) g/dL Hct 40.7 L (42-52) % Plt Count 102 L (130-400) K/uL BMP 03/30/20 06:39 Sodium 138 Potassium 3.8 Chloride 104 Carbon Dioxide 25 BUN 22 H Creatinine 0.75 Glucose 100 H Calcium 9.1 Medications Administered Current Inpatient Medications Acetaminophen (Acetaminophen 325 Mg Tab) 650 mg PO Q4H PRN PRN Reason: Pain or Fever Stop: 04/24/20 05:22 Last Admin: 03/28/20 21:42 Dose: 650 mg Documented by: Albuterol (Albut/Ipratrop 3mg/0.5mg Neb 3 Ml Vial) 3 ml INH Q4H PRN PRN Reason: Shortness Of Breath Stop: 04/24/20 05:22 Amlodipine Besylate (Amlodipine Besylate 5 Mg Tab) 5 mg PO DAILY [facility] Stop: 04/26/20 08:59 Last Admin: 03/30/20 07:46 Dose: 5 mg Documented by: Aspirin (Aspirin 81 Mg Ectab) 81 mg PO [facility] Stop: 04/25/20 08:59 Last Admin: 03/30/20 07:46 Dose: 81 mg Documented by: Atorvastatin Calcium (Atorvastatin 40 Mg Tab) 80 mg PO [facility] Stop: 04/25/20 13:14 Last Admin: 03/30/20 07:46 Dose: 80 mg Documented by: Buspirone HCl (Buspirone 15 Mg Tab) 15 mg PO BID [facility] Stop: 04/24/20 08:59 Last Admin: 03/30/20 07:45 Dose: 15 mg Documented by: Clopidogrel Bisulfate (Clopidogrel Bisulfate 75 Mg Tab) 75 mg PO [facility] Stop: 04/25/20 08:59 Last Admin: 03/30/20 07:46 Dose: 75 mg Documented by: Escitalopram Oxalate (Escitalopram Oxalate 20 Mg Tab) 20 mg PO [facility] Stop: 04/24/20 08:59 Last Admin: 03/30/20 07:46 Dose: 20 mg Documented by: Heparin Sodium (Porcine) (Heparin 100 Unit/Ml 5ml Flush) 5 ml FLUSH PRN PRN PRN Reason: Flush Stop: 04/24/20 19:42 Heparin Sodium (Porcine) (Heparin Sod 5,000 Unit/0.5 Ml Vial) 5,000 units SQ Q12 [facility] Stop: 04/24/20 20:59 Last Admin: 03/30/20 07:45 Dose: 5,000 units Documented by: Hydralazine HCl (Hydralazine Hcl 20 Mg/Ml Vial) 10 mg IV Q4H PRN PRN Reason: hypertension Stop: 04/25/20 05:00 Last Admin: 03/26/20 22:32 Dose: 10 mg Documented by: Promethazine HCl 12.5 mg/ (Sodium Chloride) 50.5 mls @ 202 mls/hr IV Q6H PRN PRN Reason: Nausea And Vomiting Stop: 04/24/20 05:22 Lorazepam (Ativan) 0.5 mg in 1 mls @ 1 mls/min IV Q4H PRN PRN Reason: Anxiety/Agitation Stop: 04/24/20 05:22 Last Admin: 03/26/20 05:23 Dose: 1 mls/min Documented by: Metoprolol Tartrate (Metoprolol Tartrate 25 Mg Tab) 25 mg PO BID [facility] Stop: 04/27/20 08:59 Last Admin: 03/30/20 07:46 Dose: 25 mg Documented by: Oxycodone HCl (Oxycodone Hcl Ir 5 Mg Tab (Immediate Release)) 5 mg PO Q4H PRN PRN Reason: Pain Stop: 04/08/20 05:22 Last Admin: 03/30/20 06:24 Dose: 5 mg Documented by: Pantoprazole Sodium (Pantoprazole 40 Mg Tab) 40 mg PO QAM [facility] Stop: 04/25/20 14:59 Last Admin: 03/30/20 07:45 Dose: 40 mg Documented by: Valacyclovir HCl (Valacyclovir Hcl 500 Mg Tablet) 500 mg PO PM [facility] Stop: 04/24/20 20:59 Last Admin: 03/29/20 20:14 Dose: 500 mg Documented by:
[2020-03-30] MEDS: valACYclovir HCL 500 MG TABLET PO SCH (20:08)
[2020-03-31] MEDS: ACETAMINOPHEN 325 MG TAB PO PRN ×2 (07:48→15:14)
[2020-03-31] MEDS: HEPARIN SOD 5,000 UNIT/0.5 ML VIAL SQ SCH (08:07)
[2020-03-31] MEDS: CLOPIDOGREL BISULFATE 75 MG TAB PO SCH (08:07)
[2020-03-31] MEDS: ESCITALOPRAM OXALATE 20 MG TAB PO SCH (08:08)
[2020-03-31] MEDS: ATORVASTATIN 40 MG TAB PO SCH (08:08)
[2020-03-31] MEDS: ASPIRIN 81 MG ECTAB PO SCH (08:08)
[2020-03-31] MEDS: METOPROLOL TARTRATE 25 MG TAB PO SCH (08:08)
[2020-03-31] MEDS: busPIRone 15 MG TAB PO SCH (08:09)
[2020-03-31] MEDS: amLODIPine BESYLATE 5 MG TAB PO SCH (08:09)
[2020-03-31] MEDS: PANTOprazole 40 MG TAB PO SCH (08:09)
--- NOTE | 2020-03-31 11:42 | Hospitalist Progress Note ---
Date of Service March 31, 2020 Assessment & Plan (1) Acute ischemic stroke: Admitted with TIA as documented below Now has acute infarct within the lateral left thalamus and posterior limb of the left internal capsule 1.4 x 0.5 cm Did not receive any TPA due to very high blood pressure Received loading dose of Plavix and now continues to get aspirin 81 mg and Plavix 75 mg daily and a statin Speech evaluation, PT and OT Has been improving with improvement of power in the right side extremities Right upper extremity remains weaker than the lower Continue PT and OT Right-sided hemiplegia has been improving Repeat PT and OT suggested rehab placement He will be transferred to [facility] this afternoon if approved Events from 03/25/2020 At around 3:40 PM while he was being seen by the neurologist he has had an episode of right-sided numbness and weakness exactly the way he was admitted to the hospital early that morning. I was informed and I saw the patient with objective findings of weakness in the right-sided extremities and questionable right facial droop without any visual symptoms. She was given loading dose of Plavix with 600 mg in total for the day and advised to stay in the hospital. At around 5:10 PM during suppertime the caring nurse informed me that he is unable to use his right upper extremity to eat and also having garbled speech and right facial droop. I immediately examined him at the time and has had objective findings of his complaints and immediately called for stroke alert. He was moved to ICU and relevant CT of the head, CTA of the head and neck were unremarkable as before and he was evaluated by Dr. Moran the on-call [place] tele-neurologist. Due to severe high blood pressure with systolic above 225 which was not immediately controlled with intravenous labetalol and required IV Cardene drip to reasonably control the blood pressure but TPA was not given due to very high blood pressure. His aspirin and Plavix were continued and he remained in ICU for continuation of care. (2) TIA (transient ischemic attack): Presented with right-sided numbness and weakness which resolved following admission and recurred thereafter Initial investigations including CT of the head, CTA of the head and neck and echo were unremarkable Was getting aspirin 81 mg and Plavix and is about to leave the hospital During neurology evaluation by the neurologist he suffered another attack of numbness and weakness involving right side and subsequently he ended up with a stroke as mentioned above (3) Hypertensive urgency: He was on amlodipine as an outpatient but has not been taking that medicine to control blood pressure His systolic blood pressure is noted to be high at 210 with diastolic 116 at presentation to the emergency room Initial symptoms of TIA was thought to be due to hypertensive urgency Permissive hypertension maintained and he was given amlodipine 2.5 mg Noted to have severe hypertension in the ICU during the second episode of strokelike symptoms which required control with intravenous Cardene and the patient did not receive any TPA due to very high blood pressure Blood pressure seems to be stable since this morning He required 1 or 2 doses of intravenous medicine to control the blood pressure last night Has been back on Norvasc 5 mg a day-he was on 10 mg but was not taking it as an outpatient If the blood pressure remains elevated will add small dose of beta-jaci therapy and increasing the dose of Norvasc to 10 mg Lopressor 25 mg twice daily was added and the blood pressure seems to be improved Will give Toprol-XL 25 mg on discharge Blood pressure seems to be on the upper side and stable (4) H/O Hodgkin's lymphoma: 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, patient follows with [facility] Received last chemotherapy in 2009 Now has generalized lymphadenopathy as per the CT scans Will have a follow-up appointment with oncologist as an outpatient Lymphadenopathy involving the anterior cervical chain-was advised to make appointment with outpatient oncologist as soon as possible following discharge Anterior cervical neck glands remain stable-strongly advised to make an appointment with his oncologist as an outpatient He will make appointment with his oncologist following discharge from the hospital (5) Esophageal reflux: Will start Protonix (6) History of lobectomy of lung: No acute issues History of COPD Seems to be stable DVT prophylaxis Has chronic thrombocytopenia with platelet count more than 100 We will put him on subcu heparin CODE STATUS Full Likely discharge after approval for rehab therapy Admission and Anticipated Discharge Date Admission Date: March 26, 2020 Subjective 03/26/2020 The patient was seen and examined in ICU He has been feeling a little better with improved speech, right facial droop and no visual abnormalities but continues to have right extremities weakness Denies any other significant symptoms Events from 03/25/2020 He was about to leave the hospital after being evaluated by neurologist At around 3:40 PM while he was being seen by the neurologist he has had an episode of right-sided numbness and weakness exactly the way he was admitted to the hospital early that morning. I was informed and I saw the patient with objective findings of weakness in the right-sided extremities and questionable right facial droop without any visual symptoms. She was given loading dose of Plavix with 600 mg in total for the day and advised to stay in the hospital. At around 5:10 PM during suppertime the caring nurse informed me that he is unable to use his right upper extremity to eat and also having garbled speech and right facial droop. I immediately examined him at the time and has had objective findings of his complaints and immediately called for stroke alert. He was moved to ICU and relevant CT of the head, CTA of the head and neck were unremarkable as before and he was evaluated by Dr. Moran the on-call [place] tele-neurologist. Due to severe high blood pressure with systolic above 225 which was not immediately controlled with intravenous labetalol and required IV Cardene drip to reasonably control the blood pressure but TPA was not given due to very high blood pressure. His aspirin and Plavix were continued and he remained in ICU for continuation of care. 03/27/2020 The patient was seen and examined in ICU He has been feeling a little bit better and complains to have right upper extremity weakness more than the right lower extremity Does not have any sensory abnormality and does not have any problem with speech and her vision Blood pressure remains on the higher side 03/28/2020 Patient was seen and examined in ICU He has been feeling a lot better today His right extremities weakness have been improving Still has minimal dysarthria but no visual symptoms 03/29/2020 The patient was seen and examined in telemetry unit He has been feeling a lot better He has minimal to no dysarthria, no facial asymmetry and his right-sided weakness has been improving 03/30/2020 The patient was seen and examined in telemetry unit He has been feeling a lot better and he almost does not have any neurological symptoms Will need physical therapy to continue for further improvement Denies any significant symptoms today 03/31/2020 The patient was seen and examined in telemetry unit He has been feeling a lot better but he still has right-sided weakness PT and OT evaluated him and advised to go to rehab Review of Systems Review of Systems: All systems reviewed and are unremarkable except as noted below Neurologic: Alert, awake and oriented x3.no dysarthria with minimal right facial droop .no visual symptoms . Weakness involving the right-sided extremities are improving. Physical Exam Physical Exam: Sitting on a chair without any acute distress Constitutional: well developed, well nourished and + obese; not ill appearing Eyes: PERRL, conjunctivae normal, anicteric sclerae ENMT: external ear and nose normal, oropharynx normal Neck: trachea midline, no thyromegaly Respiratory: no respiratory distress Auscultation: lungs clear to auscultation bilaterally Cardiovascular: Rate/Rhythm: regular rate and regular rhythm Heart Sounds: no murmur Extremities: no edema Gastrointestinal (Abdomen): Inspection/Auscultation: abdomen not distended Percussion/Palpation: abdomen soft; abdomen nontender Musculoskeletal: No acute arthritis in any joint Neurologic: Alert, awake and oriented x3. No facial droop and no dysarthria. Right hemiparesis has been improving Psychiatric: A+Ox3, euthymic affect Lymphatic: no cervical or axillary lymphadenopathy Results & Data Results & Data ([facility]) Vital Signs (Past 12 Hours) Vital Signs Temp Pulse Pulse Resp BP Pulse Ox 03/31/20 09:03 90 03/31/20 08:01 37.0 C 98 H 19 174/78 H 92 03/31/20 04:11 37.2 C 91 H 18 170/74 H 92 03/31/20 00:00 84 Medications Administered Current Inpatient Medications Acetaminophen (Acetaminophen 325 Mg Tab) 650 mg PO Q4H PRN PRN Reason: Pain or Fever Stop: 04/24/20 05:22 Last Admin: 03/31/20 07:48 Dose: 650 mg Documented by: Albuterol (Albut/Ipratrop 3mg/0.5mg Neb 3 Ml Vial) 3 ml INH Q4H PRN PRN Reason: Shortness Of Breath Stop: 04/24/20 05:22 Amlodipine Besylate (Amlodipine Besylate 5 Mg Tab) 5 mg PO DAILY [facility] Stop: 04/26/20 08:59 Last Admin: 03/31/20 08:09 Dose: 5 mg Documented by: Aspirin (Aspirin 81 Mg Ectab) 81 mg PO QAM [facility] Stop: 04/25/20 08:59 Last Admin: 03/31/20 08:08 Dose: 81 mg Documented by: Atorvastatin Calcium (Atorvastatin 40 Mg Tab) 80 mg PO QAM [facility] Stop: 04/25/20 13:14 Last Admin: 03/31/20 08:08 Dose: 80 mg Documented by: Buspirone HCl (Buspirone 15 Mg Tab) 15 mg PO BID [facility] Stop: 04/24/20 08:59 Last Admin: 03/31/20 08:09 Dose: 15 mg Documented by: Clopidogrel Bisulfate (Clopidogrel Bisulfate 75 Mg Tab) [facility]: 04/25/20 08:59 Last Admin: 03/31/20 08:07 Dose: 75 mg Documented by: Escitalopram Oxalate (Escitalopram Oxalate 20 Mg Tab) 20 mg PO [facility] Stop: 04/24/20 08:59 Last Admin: 03/31/20 08:08 Dose: 20 mg Documented by: Heparin Sodium (Porcine) (Heparin 100 Unit/Ml 5ml Flush) 5 ml FLUSH PRN PRN PRN Reason: Flush Stop: 04/24/20 19:42 Heparin Sodium (Porcine) (Heparin Sod 5,000 Unit/0.5 Ml Vial) 5,000 units SQ Q12 [facility] Stop: 04/24/20 20:59 Last Admin: 03/31/20 08:07 Dose: 5,000 units Documented by: Hydralazine HCl (Hydralazine Hcl 20 Mg/Ml Vial) 10 mg IV Q4H PRN PRN Reason: hypertension Stop: 04/25/20 05:00 Last Admin: 03/26/20 22:32 Dose: 10 mg Documented by: Promethazine HCl 12.5 mg/ (Sodium Chloride) 50.5 mls @ 202 mls/hr IV Q6H PRN PRN Reason: Nausea And Vomiting Stop: 04/24/20 05:22 Lorazepam (Ativan) 0.5 mg in 1 mls @ 1 mls/min IV Q4H PRN PRN Reason: Anxiety/Agitation Stop: 04/24/20 05:22 Last Admin: 03/26/20 05:23 Dose: 1 mls/min Documented by: Metoprolol Tartrate (Metoprolol Tartrate 25 Mg Tab) 25 mg PO BID [facility] Stop: 04/27/20 08:59 Last Admin: 03/31/20 08:08 Dose: 25 mg Documented by: Oxycodone HCl (Oxycodone Hcl Ir 5 Mg Tab (Immediate Release)) 5 mg PO Q4H PRN PRN Reason: Pain Stop: 04/08/20 05:22 Last Admin: 03/30/20 20:06 Dose: 5 mg Documented by: Pantoprazole Sodium (Pantoprazole 40 Mg Tab) 40 mg PO QAM [facility] Stop: 04/25/20 14:59 Last Admin: 03/31/20 08:09 Dose: 40 mg Documented by: Valacyclovir HCl (Valacyclovir Hcl 500 Mg Tablet) 500 mg PO PM [facility] Stop: 04/24/20 20:59 Last Admin: 03/30/20 20:08 Dose: 500 mg Documented by:
--- NOTE | 2020-04-01 08:45 | Discharge Summary ---
Date of Service April 01, 2020 Admission HPI Per Admitting Provider History obtained from patient and records. 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 Last confinement August 2019 for right lower lobe pneumonia. Patient was getting some food from the refrigerator at his home around midnight when he noted sudden onset right arm, right leg, right facial droop. No headache, no chest pain, no S OB. Patient compliant with home aspirin. Symptoms resolved after 30 minutes. Patient brought to ER by EMS. MEDICAL HISTORY: As above. SURGICAL HISTORY: 1. Lung biopsy. 2. Lobectomy procedure. 3. A-Port placement. 4. Ear surgery FAMILY HISTORY: There is a family history of lymphoma. PERSONAL SOCIAL HISTORY: Nonsmoker. 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 Admission Exam Per Admitting Provider Physical Exam: GENERAL: Comfortable, pleasant, morbidly obese, no respiratory distress SKIN: Normal color, warm HEENT: Alopecia, [place] palpebral conjunctivae, no ptosis, dry buccal mucosa NECK : Supple, short neck, no tenderness, nontender cervical adenopathy CHEST : CTA, no tenderness HEART : RRR, no obvious murmurs ABDOMEN: Some distention, nontender EXTREMITIES : Minimal LE swelling, no LE tenderness, no other conspicuous deformities noted NEUROLOGIC : Coherent, no facial asymmetry, no pronator drift, no other gross focality Principal Diagnosis Acute ischemic stroke within the lateral left thalamus and posterior limb of the internal capsule, hypertensive urgency, history of Hodgkin's lymphoma Discharge Exam Constitutional well developed, well nourished and + obese; not ill appearing Eyes PERRL, conjunctivae normal, anicteric sclerae ENMT external ear and nose normal, oropharynx normal Neck trachea midline, no thyromegaly Respiratory no respiratory distress Auscultation: lungs clear to auscultation bilaterally Cardiovascular Rate/Rhythm: regular rate and regular rhythm Heart Sounds: no murmur Extremities: no edema Gastrointestinal (Abdomen) Inspection/Auscultation: abdomen not distended Percussion/Palpation: abdomen soft; abdomen nontender Psychiatric A+Ox3, euthymic affect Lymphatic no cervical or axillary lymphadenopathy Discharge Data Allergies Allergy/AdvReac Type Severity Reaction Status Date / Time No Known Allergies Allergy Verified 02/03/21 02:19 Consultations 03/25/20 03:42 ED Decision to Admit Stat 03/25/20 05:23 Consult Case Management - Discharge Planning Routine Consult Neurology Routine 03/25/20 20:15 Consult Regional Planner Routine Ordered Studies 03/25/20 01:32 CT angio head wo/w Urgent CT angio neck with con Urgent 03/25/20 05:23 MR brain wo con Routine 03/25/20 17:18 CT head/brain wo con Stat 03/25/20 17:31 CT angio head w con Urgent CT angio neck with con Urgent 03/26/20 09:00 MR brain wo con Routine Hospital Course (1) Acute ischemic stroke: Admitted with TIA as documented below Now has acute infarct within the lateral left thalamus and posterior limb of the left internal capsule 1.4 x 0.5 cm Did not receive any TPA due to very high blood pressure Received loading dose of Plavix and now continues to get aspirin 81 mg and Plavix 75 mg daily and a statin Speech evaluation, PT and OT Has been improving with improvement of power in the right side extremities Right upper extremity remains weaker than the lower Continue PT and OT Right-sided hemiplegia has been improving Repeat PT and OT suggested rehab placement [facility] if approved Events from 03/25/2020 At around 3:40 PM while he was being seen by the neurologist he has had an episode of right-sided numbness and weakness exactly the way he was admitted to the hospital early that morning. I was informed and I saw the patient with objective findings of weakness in the right-sided extremities and questionable right facial droop without any visual symptoms. She was given loading dose of Plavix with 600 mg in total for the day and advised to stay in the hospital. At around 5:10 PM during suppertime the caring nurse informed me that he is unable to use his right upper extremity to eat and also having garbled speech and right facial droop. I immediately examined him at the time and has had objective findings of his complaints and immediately called for stroke alert. He was moved to ICU and relevant CT of the head, CTA of the head and neck were unremarkable as before and he was evaluated by Dr. Moran the on-call [place] tele-neurologist. Due to severe high blood pressure with systolic above 225 which was not immediately controlled with intravenous labetalol and required IV Cardene drip to reasonably control the blood pressure but TPA was not given due to very high blood pressure. His aspirin and Plavix were continued and he remained in ICU for continuation of care. (2) TIA (transient ischemic attack): Presented with right-sided numbness and weakness which resolved following admission and recurred thereafter Initial investigations including CT of the head, CTA of the head and neck and echo were unremarkable Was getting aspirin 81 mg and Plavix and is about to leave the hospital During neurology evaluation by the neurologist he suffered another attack of numbness and weakness involving right side and subsequently he ended up with a stroke as mentioned above (3) Hypertensive urgency: He was on amlodipine as an outpatient but has not been taking that medicine to control blood pressure His systolic blood pressure is noted to be high at 210 with diastolic 116 at presentation to the emergency room Initial symptoms of TIA was thought to be due to hypertensive urgency Permissive hypertension maintained and he was given amlodipine 2.5 mg Noted to have severe hypertension in the ICU during the second episode of strokelike symptoms which required control with intravenous Cardene and the patient did not receive any TPA due to very high blood pressure Blood pressure seems to be stable since this morning He required 1 or 2 doses of intravenous medicine to control the blood pressure last night Has been back on Norvasc 5 mg a day-he was on 10 mg but was not taking it as an outpatient If the blood pressure remains elevated will add small dose of beta-jaci therapy and increasing the dose of Norvasc to 10 mg Lopressor 25 mg twice daily was added and the blood pressure seems to be improved Will give Toprol-XL 25 mg on discharge Blood pressure seems to be on the upper side and stable (4) H/O Hodgkin's lymphoma: 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, patient follows with [facility] Oncology Received last chemotherapy in 2009 Now has generalized lymphadenopathy as per the CT scans Will have a follow-up appointment with oncologist as an outpatient Lymphadenopathy involving the anterior cervical chain-was advised to make appointment with outpatient oncologist as soon as possible following discharge Anterior cervical neck glands remain stable-strongly advised to make an appointment with his oncologist as an outpatient He will make appointment with his oncologist following discharge from the hospital (5) Esophageal reflux: Will start Protonix (6) History of lobectomy of lung: No acute issues History of COPD Seems to be stable DVT prophylaxis Has chronic thrombocytopenia with platelet count more than 100 We will put him on subcu heparin CODE STATUS Full Likely discharge after approval for rehab therapy Total Time Total Time Spent Total Time Spent (In Minutes): 40 minutes Total Time Includes: Examination of the Patient, Discharge Planning, Medication Reconciliation and Communication With Other Providers Discharge Plan Discharge Items Patient Disposition: Transfer Inpatient Rehab Fac Reason For Visit: TIA Discharge Diagnosis: Acute ischemic stroke within the lateral left thalamus and posterior limb of the internal capsule, hypertensive urgency, history of Hodgkin's lymphoma Condition on Discharge: Fair Activity: Resume your previous activity Activity Comment: Continue PT and OT as advised Non-emergency contact: Primary Care Provider Call non-emergency contact if: you have any medication questions and your symptoms worsen Follow-up/Referrals: Melissa Acuna DO [Primary Care Provider] - (Date & Time 04/03/2020 2:20 PM Provider Melissa Acuna DO Department [facility] ) Diet: Heart Healthy and Low Sodium (2gm) Addtl Attending Provider Instructions: Please take precaution to avoid falls Please make an appointment with your oncologist as soon as possible You will need to have an appointment with neurologist within 4 to 6 weeks. You will also need to have a Zio patch placed from your primary care's office. Pending Studies at Discharge: No Stand-Alone Forms: My [facility] Skilled Items Patient informed of condition?: Yes DNR: No Discharge Level of Care: Skilled Communicable Disease: No Discharge Prognosis: Stable Lines: None Urinary Catheter: No Medications and DC Order Prescriptions: New atorvastatin 40 mg Tablet 80 mg PO QAM 30 Days Qty: 60 RF: 0 clopidogrel 75 mg Tablet 75 mg PO QAM 30 Days Qty: 30 RF: 0 amlodipine [Norvasc] 5 mg Tablet 5 mg PO DAILY 30 Days Qty: 30 RF: 0 metoprolol tartrate 25 mg Tablet 25 mg PO BID 30 Days Qty: 60 RF: 0 aspirin 81 mg Tablet,Delayed Release (Dr/Ec) 81 mg PO QAM 17 Days Qty: 17 RF: 0 pantoprazole 40 mg Tablet,Delayed Release (Dr/Ec) 40 mg PO QAM 30 Days Qty: 30 RF: 0 Continued ipratropium-albuterol 0.5 mg-3 mg(2.5 mg base)/3 mL solution for nebulization 3 ml inhalation Q4H PRN (Reason: Shortness Of Breath) RF: 0 escitalopram oxalate [Lexapro] 20 mg tablet 20 mg PO QAM RF: 0 buspirone 15 mg tablet 15 mg PO BID RF: 0 valacyclovir [Valtrex] 500 mg Tablet 500 mg PO PM RF: 0 albuterol sulfate [Ventolin HFA] 90 mcg/actuation Hfa Aerosol Inhaler 2 puff INHALATION Q6H PRN (Reason: sob) RF: 0 Discontinued ibuprofen [Motrin IB] 200 mg Tablet 600 mg PO Q6H PRN (Reason: fever/pain) RF: 0 amlodipine 10 mg tablet 10 mg PO DAILY RF: 0 aspirin 81 mg Tablet,Delayed Release (Dr/Ec) 81 mg PO QAM RF: 0 Discharge Orders: Discharge Order (Routine); Ordered 03/31/20 Ordered By: Malini Leal Admission Data Admit Date/Time: 03/26/20 10:17 Attending Provider: Malini Leal Admit Provider: Yuniel Hernandez Primary Care Provider: Melissa Acuna Other Providers: [facility] ; Katherine Atkins [facility] ; Yuniel Hernandez ; Michelle Quezada ; Danny Snyder ; Michelle Lewis ; Donavan Archibald ; Joel Geronimo Other Interventions: Discharge Summary Assessment (RN) Last Done: 03/31/20 16:56
== END 2020-03-31 18:55 | DRG 65 ==
LOC: ED 01:24 → 2N 01:24 → 1E 19:15 → 2S 03-28 18:59

== ENCOUNTER 2020-07-13 00:27 | Inpatient (IN) ==
--- NOTE | 2020-07-13 00:56 | Emergency Department Note ---
Impression & Plan Acute respiratory failure, Multifocal pneumonia, Lactic acidosis ED Provider Note Name: YOKO KEVIN Age: 54 Sex: M Arrives Via: Walk-In Informant: Patient, ED Provider: Jose Karimi MD Chief Complaint: Shortness of breath Impression: Acute Respiratory Failure Multifocal Pneumonia Lactic Acidosis Medical Decision Makin yr old male with hodgkin's lymphoma not currently on chemo arrives for rapid respiratory distress. Hypoxic, tachypneic and diffuse wet crackles all lung [place]. Rapidly placed on BiPap with improvement. CXR with diffuse congestive findings vs ards/infectious. With lung exam felt that emergent lasix reasonable as he very much looks and sounds like heart failure, though with no chf nor cad history. Patient tolerating bipap quite well and look much more comfortable with good sats and vitals. Dimer retured elevated along with elevated lactate and mild wbc elevation. As blood cultures had been obtained abx were ordered as he was sent to CT for further evaluation. Per radiologist diffuse opacities concerning for acute infectious/inflammatory process. Hospitalist at this point already consulted. I will note that I did not initially order 30ml/kg IV fluid bolus as there was significant concern this was congestive failure/pulmonary edema and if it had been it would have worsened situation. Post hospitalist evaluation and with repeat lactate elevated fluids ordered (by hospitalist) which seems appropriate given ct findings and continued elevated lactate. Patient still on bipap and doing well with this. Just prior to transfer out of ED patient with rapid decline. Tachypnea, tachycardia, hypoxia and quite diaphoretic. He is no longer tolerating bipap. Notes he feels weak, denies chest pain. Hospitalist aware and patient moved to critical care bay. Intubated by me without difficulty using #4 glidescope and 7.5 cm tube. Moderate about of blood in posterior oropharynx and in to trachea with initial look, though able to pass tube without difficulty on first attempt. Unclear where blood coming from but deep suction post intubation with blood noted. ET tube a bit deep on cxr and pulled back. Critical care GREY INSPECTOR Albert at bedside just after patient intubated. Sats started to drop some and deep suction with some blood in suction noted. Patient paralyzed, given solumedrol, and increased sedation with IV fluids continuing. Sats still in mid/upper 80s despite this. CCM attending aware and plan to try and stabilize further in ICU prior to bronch etc. Prior Medical Record and Triage/Nursing Notes reviewed by Me Additional history obtained from /chart Differentials:Reactive airway disease, pneumonia, pneumothorax, COPD, CHF, infections, cardiac ischemia, pulmonary embolism, musculoskeletal, gastrointestinal, as well as other pathologies. amongst other pathologies. Vital Signs: reviewed and remarkable for hypoxia Interventions: saline lock, lasix 40mg iv, zosyn 4.5gm iv, vanco 2.5gm iv Labs:Reviewed and remarkable for elevated wbc, lactate, dimer Imaging:X ray results are stated below per my interpretation: Chest: 1 view: Bilateral infiltrates, worse LLL [facility] Radiologist interpretation reviewed by me: "CTA CHEST: Comparison: CTA chest 02/24/2020 Examination is limited by motion and patient scanning in arms down positioning. No discrete acute pulmonary embolism is seen. There are patchy and nodular opacities distributed both lungs, confluent within the left lower lobe, compatible with an acute infectious or inflammatory process. There is a trace left pleural effusion with fluid extending into the left major fissure. Coronary artery calcifications. Left IJ Port-A-Cath terminates in the right atrium. Overall interval decrease in mediastinal adenopathy. Radiologist: Beverly Webster M.D." EKG #1:Per My Interpretation: Indication Shortness of breath: NSR 92 bpm, qtc 408. Poor baseline due to respiratory motion. No Ectopy. No Ischemia. Compared to EKG 04/21/20, no significant changes. EKG #2:Per My Interpretation: Indication Shortness of breath repeat: NSR 97 bpm, qtc 424. No Ectopy. No Ischemia. Compared to EKG 07/13/20 (earlier in shift) improved baseline. Cardiac/Tele Monitoring: Cardiac Monitoring: An Order was placed for continuous cardiac monitoring. The monitor shows a rate of 90 with a normal sinus rhythm. Consults:Dr David Ivy Hospitalist Plan: Disposition:Hospitalization. Condition: Fair History of Present Illness:54 yr old male arrives for evaluation of shortness of breath. Rapidly worsening shortness of breath over the last few hours. Notes mild sob/cough at 5pm. Worsening as evening went on. Associated with cough. Notes making lots of noise with breathing. No treatments prior to arrival. Exertion/talking makes worse. Rest makes better. Associated mild nausea and diaphoresis. No history of similar. Denies history of CHF, blood clots. On Plavix/asa for previous CVA. No trauma/injuries/falls. Denies chest pain, fevers, chills, nausea, vomiting, back pain, urinary/bowel changes, leg swelling, abdominal pain, rashes, nor other acute symptoms. States he felt fine prior to this. Recently received 2nd covid vaccine. He has history of Lymphoma previously on chemo and is about to restart due to increasing nodules on lungs. Does have history of COPD though never symptoms like this. ROS: See above HPI for pertinent positives & negatives. A total of 10 systems reviewed and were otherwise negative. Past Medical History:See Below Past Surgical History:See Below Family History:See Below Social History:See Below Home Medications:See Below Allergies:NKDA Vitals:Blood Pressure: 139/73, Pulse 87, RR 28, T 36.7C, O2 89% on RA Physical Exam: GENERAL: Patient is ill appearing and in moderate distress. Diaphoretic EYES: No scleral icterus, unremarkable pupils. ENT: Mucous membranes moist, no nasal congestion. NECK: No masses appreciated, nomeningismus, trachea is midline. RESPIRATORY: Diffuse wet crackles, dyspnea, tachypnea. CARDIOVASCULAR: Regular rate and rhythm.No murmurs, rubs, gallops appreciated. GASTROINTESTINAL: Abdomen soft, non-tender, no peritonitis.Bowel sounds positive.No masses appreciated. BACK: No midline tenderness, no CVA tenderness EXTREMITIES: Normal motion all extremities, no cyanosis, no edema. NEUROLOGIC: Alert and oriented, no acute motor or sensory deficits, no focal weakness, cranial nerves grossly intact. SKIN: No rash, no jaundice, no diaphoresis. PSYCH: Appropriate GCS: 15 ED Course: Times/Reassessments: vastly improved with bipap and breathing comfortably on it. Rapid decompensation just prior to transfer to floor and required intubation and CCM at bedside in ED. Procedure: Endotracheal Intubation Indication: Respiratory failure The patient was on 100% FiO2 Bipap and partial denture removed. Patient tachypneic, hypoxic, and diaphoretic. Suction, airway equipment, RSI drugs, respiratory equipment, and appropriate personnel were prepared prior to the initiation of the procedure. A time out was taken. Induction was performed with Etomidate 20mg and Succinylcholine 150mg IV. After observing the clinical benefit of the medications, the airway was easily visualized utilizing a #4 Blade Glidescope.. Moderate about of blood noted in posterior pharynx and trachea even prior to initial attempt at intubation. A 7.5 size ETT tube was placed atraumatically to 24 cm using standard technique. The cuff inflated without signs of malfunction. There were bilateral breath sounds, positive colormetric change, no gastric sounds, a good capnography waveform, and post procedure pulse oximetry was 92%. Post intubation sedation and paralysis was administered using propofol gtt, fentanyl iv, versed iv. There were no complications. Critical Care: I have personally spent 90 minutes of critical care time in the direct management of this patient. Acute respiratory failure with hypoxia requiring Bipap followed by intubation. This was a life/limb threatening event. This 90 minutes is in excess of all separately billable procedures. 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 Bustillos 02/11/2020 Thrombocytopenia chronic thrombocytopenia dating back to at least 02/2018, baseline plts 80's- low 100's range per chart review, most recent plt level 109 02/05/20 Surgical History History of colonoscopy History of lobectomy of lung RML > 2002 History of removal of Port-a-Cath Hx of lymph node excision right neck and right axillary S/P lymph node biopsy (02/11/20) Right Supracalvicular Lymph Node Biopsy Dr. 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 Current Living Situation: Significant Other Current Living Situation Comment: Ansted Combs, girlfriend Feels Safe at Home: Yes Assistive Devices: Glasses Allergies Allergies Allergy/AdvReac Type Severity Reaction Status Date / Time No Known Allergies Allergy Verified 07/13/20 01:19 Home Meds Home Medications Medication Instructions Recorded Confirmed valacyclovir [Valtrex] 500 mg PO PM 03/15/18 07/13/20 buspirone 15 mg tablet 15 mg PO BID 09/30/19 07/13/20 acetaminophen 650 mg PO Q4 PRN MDD 10 tabs daily 04/21/20 07/13/20 amlodipine [Norvasc] 5 mg PO QAM 04/21/20 07/13/20 atorvastatin 80 mg PO QAM 04/21/20 07/13/20 ibuprofen 600 mg PO Q6H PRN 04/21/20 07/13/20 clopidogrel 75 mg tablet 75 mg PO DAILY 06/15/20 07/13/20 duloxetine 30 mg capsule,delayed 30 mg PO DAILY 06/15/20 07/13/20 release pantoprazole 40 mg tablet,delayed 40 mg PO DAILY 06/15/20 07/13/20 release dexamethasone 8 mg PO Q6H 07/13/20 07/13/20 metoprolol tartrate 25 mg PO BID 07/13/20 07/13/20 Previous Rx's Medication Instructions Recorded fluticasone fur. 100 mcg-umeclid 1 inh INHALATION DAILY #60 ea 06/15/20 62.5 mcg-vilant 25 mcg inhalat.powder Results & Data (ED) Vital Signs Vital Signs - 24 hr 07/13/20 00:30 07/13/20 00:40 07/13/20 01:00 Temperature 36.7 C Temperature Source Temporal Artery Scan Pulse Rate 87 90 Pulse Rate [Right Radial] Pulse Rate from SpO2 Sensor Respiratory Rate 28 H 30 H Respiratory Effort / Characteristics Spontaneous Accessory Muscle Use Labored Short of Breath Respiratory Depth Deep Respiratory Pattern Tachypnea Blood Pressure 139/73 Blood Pressure Mean 95 Pulse Oximetry 89 L 88 L 97 Oxygen Delivery Method Room Air Room Air Oxymask BiPAP Fraction of Inspired Oxygen 40 Sepsis Recent Fever Within 48 Hours No Sepsis New/Unexplained Change in Mental Status No Sepsis Action Taken by Nursing No Action Required Oxygen Flow Rate - Titration 3 Pulse Oximetry Post Tiitration 96 07/13/20 01:29 07/13/20 01:30 07/13/20 02:00 Temperature Temperature Source Pulse Rate 94 H 94 H 98 H Pulse Rate [Right Radial] Pulse Rate from SpO2 Sensor 95 H 94 H 98 H Respiratory Rate 31 H 32 H 32 H Respiratory Effort / Characteristics Respiratory Depth Respiratory Pattern Blood Pressure 129/97 122/87 129/97 Blood Pressure Mean 107 98 107 Pulse Oximetry 96 96 93 Oxygen Delivery Method BiPAP BiPAP Fraction of Inspired Oxygen Sepsis Recent Fever Within 48 Hours Sepsis New/Unexplained Change in Mental Status Sepsis Action Taken by Nursing Oxygen Flow Rate - Titration Pulse Oximetry Post Tiitration 07/13/20 02:31 07/13/20 02:56 07/13/20 03:01 Temperature Temperature Source Pulse Rate 98 H 94 H 95 H Pulse Rate [Right Radial] Pulse Rate from SpO2 Sensor Respiratory Rate 24 36 H 26 H Respiratory Effort / Characteristics Spontaneous Accessory Muscle Use Labored Short of Breath Respiratory Depth Deep Respiratory Pattern Tachypnea Blood Pressure 132/99 132/71 Blood Pressure Mean 110 91 Pulse Oximetry 95 94 94 Oxygen Delivery Method BiPAP BiPAP Fraction of Inspired Oxygen 40 Sepsis Recent Fever Within 48 Hours Sepsis New/Unexplained Change in Mental Status Sepsis Action Taken by Nursing Oxygen Flow Rate - Titration Pulse Oximetry Post Tiitration 07/13/20 03:26 07/13/20 03:31 07/13/20 04:00 Temperature Temperature Source Pulse Rate 102 H 110 H Pulse Rate [Right Radial] 105 H Pulse Rate from SpO2 Sensor 100 H 110 H Respiratory Rate 36 H 27 H 38 H Respiratory Effort / Characteristics Spontaneous Labored Respiratory Depth Respiratory Pattern Blood Pressure 116/70 149/93 H Blood Pressure Mean 85 111 Pulse Oximetry 96 96 94 Oxygen Delivery Method BiPAP BiPAP BiPAP Fraction of Inspired Oxygen 40 Sepsis Recent Fever Within 48 Hours Sepsis New/Unexplained Change in Mental Status Sepsis Action Taken by Nursing Oxygen Flow Rate - Titration Pulse Oximetry Post Tiitration 07/13/20 05:04 07/13/20 05:11 Temperature Temperature Source Pulse Rate 125 H 123 H Pulse Rate [Right Radial] Pulse Rate from SpO2 Sensor 127 H 124 H Respiratory Rate Respiratory Effort / Characteristics Respiratory Depth Respiratory Pattern Blood Pressure 127/75 Blood Pressure Mean 92 Pulse Oximetry 95 95 Oxygen Delivery Method Fraction of Inspired Oxygen Sepsis Recent Fever Within 48 Hours Sepsis New/Unexplained Change in Mental Status Sepsis Action Taken by Nursing Oxygen Flow Rate - Titration Pulse Oximetry Post Tiitration Laboratory Data Result diagrams: 07/13/20 00:52 05/24/21 00:52 Lab Results 07/13/20 07/13/20 07/13/20 Range/Units 00:52 00:52 00:52 WBC 13.13 H (4.8-10.8) K/uL RBC 5.47 (4.7-6.1) M/uL Hgb 16.5 (14.0-18.0) g/dL Hct 48.0 (42-52) % MCV 87.8 (80-100) fL MCH 30.2 (25-34) pg MCHC 34.4 (32-36) g/dL RDW Std Deviation 46.5 H (36.4-46.3) fL RDW Coeff of Maia 14.4 (11.5-14.5) % Plt Count 127 L (130-400) K/uL MPV 9.7 (7.4-10.4) fL Immature Gran % (Auto) 1.1 % Neut % (Auto) 82.9 % Lymph % (Auto) 8.1 % [place] % (Auto) 7.8 % Eos % (Auto) 0.0 % Baso % (Auto) 0.1 % Neut # (Auto) 10.89 H (1.4-6.5) K/uL Lymph # (Auto) 1.07 L (1.2-3.4) K/uL [place] # (Auto) 1.02 H (0.11-0.59) K/uL Eos # (Auto) 0.00 (0-0.5) K/uL Baso # (Auto) 0.01 (0-0.2) K/uL Immature Gran # (Auto) 0.14 H (0.00-0.02) K/uL Dohle Bodies Occasional PT 9.9 (9.0-12.0) Seconds INR 1.0 (0.9-1.1) APTT 27.4 (21.0-31.0) Seconds PTT Ratio 1.0 D-Dimer 1360 H* (0-500) ug/L FEU ABG pH (7.35-7.45) ABG pCO2 (35-46) mmHg ABG pO2 (80-95) mmHg ABG HCO3 (19-24) mmol/L ABG O2 Saturation (90-95) % ABG Base Excess (-9-1.8) mEq/L Vega Test (Pos) Barometric Pressure mm/Hg Oxygen Given Sodium (136-145) mmol/L Potassium (3.5-5.1) mmol/L Chloride (98-107) mmol/L Carbon Dioxide (21-32) mmol/L Anion Gap (3-11) BUN (7-18) mg/dl Creatinine (0.6-1.4) mg/dl Est Cr Clr Drug Dosing ml/min Est GFR ( Amer) ml/min Est GFR (Non-Af Amer) ml/min BUN/Creatinine Ratio (10-20) Glucose (70-99) mg/dl Lactate 3.8 H* (0.4-2.0) mmol/L Calcium (8.5-10.1) mg/dl Magnesium (1.8-2.4) mg/dl Total Bilirubin (0.2-1) mg/dl Direct Bilirubin (0-0.2) mg/dl AST (15-37) U/L ALT (12-78) U/L Alkaline Phosphatase (45-117) U/L Total Creatine Kinase (39-308) U/L Troponin I (0-0.045) ng/ml NT-Pro-B Natriuret Pep (0-900) pg/ml Total Protein (6.4-8.2) gm/dl Albumin (3.4-5.0) gm/dl Lipase (73-393) U/L Procalcitonin (0-0.5) ng/ml TSH (0.300-4.500) uIu/ml Urine Color Urine Appearance (Clear) Urine pH (4.5-7.5) Ur Specific [place] (1.000-1.030) Urine Protein (Negative) Urine Glucose (UA) (Negative) Urine Ketones (Negative) Urine Blood (Negative) Urine Nitrite (Negative) Urine Bilirubin (Negative) Urine Urobilinogen (Negative) Ur Leukocyte Esterase (Negative) Urine WBC (Auto) (0-5) /hpf Urine RBC (Auto) (0-4) /hpf U Hyaline Cast (Auto) (0-5) /lpf U Epithel Cells (Auto) (0-5) /lpf Urine Bacteria (Auto) (Negative) Ur Renal Epithelial Cell Urine Mucus (None Prsent) COVID-19 Eval Order SARS-CoV-2 (PCR) (Negative) 07/13/20 07/13/20 07/13/20 Range/Units 00:52 00:52 01:10 WBC (4.8-10.8) K/uL RBC (4.7-6.1) M/uL Hgb (14.0-18.0) g/dL Hct (42-52) % MCV (80-100) fL MCH (25-34) pg MCHC (32-36) g/dL RDW Std Deviation (36.4-46.3) fL RDW Coeff of Maia (11.5-14.5) % Plt Count (130-400) K/uL MPV (7.4-10.4) fL Immature Gran % (Auto) % Neut % (Auto) % Lymph % (Auto) % [place] % (Auto) % Eos % (Auto) % Baso % (Auto) % Neut # (Auto) (1.4-6.5) K/uL Lymph # (Auto) (1.2-3.4) K/uL [place] # (Auto) (0.11-0.59) K/uL Eos # (Auto) (0-0.5) K/uL Baso # (Auto) (0-0.2) K/uL Immature Gran # (Auto) (0.00-0.02) K/uL Dohle Bodies PT (9.0-12.0) Seconds INR (0.9-1.1) APTT (21.0-31.0) Seconds PTT Ratio D-Dimer (0-500) ug/L FEU ABG pH (7.35-7.45) ABG pCO2 (35-46) mmHg ABG pO2 (80-95) mmHg ABG HCO3 (19-24) mmol/L ABG O2 Saturation (90-95) % ABG Base Excess (-9-1.8) mEq/L Vega Test (Pos) Barometric Pressure mm/Hg Oxygen Given Sodium 141 (136-145) mmol/L Potassium 4.2 (3.5-5.1) mmol/L Chloride 109 H (98-107) mmol/L Carbon Dioxide 23 (21-32) mmol/L Anion Gap 9.0 (3-11) BUN 31 H (7-18) mg/dl Creatinine 0.96 (0.6-1.4) mg/dl Est Cr Clr Drug Dosing 116.6 ml/min Est GFR ( Amer) 103.4 ml/min Est GFR (Non-Af Amer) 89.3 ml/min BUN/Creatinine Ratio 32.5 H (10-20) Glucose 278 H (70-99) mg/dl Lactate (0.4-2.0) mmol/L Calcium 8.4 L (8.5-10.1) mg/dl Magnesium 2.2 (1.8-2.4) mg/dl Total Bilirubin 0.6 (0.2-1) mg/dl Direct Bilirubin 0.2 (0-0.2) mg/dl AST 12 L (15-37) U/L ALT 29 (12-78) U/L Alkaline Phosphatase 82 (45-117) U/L Total Creatine Kinase 60 (39-308) U/L Troponin I < 0.015 (0-0.045) ng/ml NT-Pro-B Natriuret Pep 229 (0-900) pg/ml Total Protein 5.7 L (6.4-8.2) gm/dl Albumin 3.2 L (3.4-5.0) gm/dl Lipase 113 (73-393) U/L Procalcitonin 2.98 H (0-0.5) ng/ml TSH 1.020 (0.300-4.500) uIu/ml Urine Color Urine Appearance (Clear) Urine pH (4.5-7.5) Ur Specific [place] (1.000-1.030) Urine Protein (Negative) Urine Glucose (UA) (Negative) Urine Ketones (Negative) Urine Blood (Negative) Urine Nitrite (Negative) Urine Bilirubin (Negative) Urine Urobilinogen (Negative) Ur Leukocyte Esterase (Negative) Urine WBC (Auto) (0-5) /hpf Urine RBC (Auto) (0-4) /hpf U Hyaline Cast (Auto) (0-5) /lpf U Epithel Cells (Auto) (0-5) /lpf Urine Bacteria (Auto) (Negative) Ur Renal Epithelial Cell Urine Mucus (None Prsent) COVID-19 Eval Order Covid19 at [facility] SARS-CoV-2 (PCR) (Negative) 07/13/20 07/13/20 07/13/20 Range/Units 01:10 02:58 03:24 WBC (4.8-10.8) K/uL RBC (4.7-6.1) M/uL Hgb (14.0-18.0) g/dL Hct (42-52) % MCV (80-100) fL MCH (25-34) pg MCHC (32-36) g/dL RDW Std Deviation (36.4-46.3) fL RDW Coeff of Maia (11.5-14.5) % Plt Count (130-400) K/uL MPV (7.4-10.4) fL Immature Gran % (Auto) % Neut % (Auto) % Lymph % (Auto) % [place] % (Auto) % Eos % (Auto) % Baso % (Auto) % Neut # (Auto) (1.4-6.5) K/uL Lymph # (Auto) (1.2-3.4) K/uL [place] # (Auto) (0.11-0.59) K/uL Eos # (Auto) (0-0.5) K/uL Baso # (Auto) (0-0.2) K/uL Immature Gran # (Auto) (0.00-0.02) K/uL Dohle Bodies PT (9.0-12.0) Seconds INR (0.9-1.1) APTT (21.0-31.0) Seconds PTT Ratio D-Dimer (0-500) ug/L FEU ABG pH 7.26 L (7.35-7.45) ABG pCO2 48 H (35-46) mmHg ABG pO2 106 H (80-95) mmHg ABG HCO3 21 (19-24) mmol/L ABG O2 Saturation 97.4 H (90-95) % ABG Base Excess -6.3 (-9-1.8) mEq/L Vega Test Pos (Pos) Barometric Pressure 736.2 mm/Hg Oxygen Given 42% Sodium (136-145) mmol/L Potassium (3.5-5.1) mmol/L Chloride (98-107) mmol/L Carbon Dioxide (21-32) mmol/L Anion Gap (3-11) BUN (7-18) mg/dl Creatinine (0.6-1.4) mg/dl Est Cr Clr Drug Dosing ml/min Est GFR ( Amer) ml/min Est GFR (Non-Af Amer) ml/min BUN/Creatinine Ratio (10-20) Glucose (70-99) mg/dl Lactate 3.4 H* (0.4-2.0) mmol/L Calcium (8.5-10.1) mg/dl Magnesium (1.8-2.4) mg/dl Total Bilirubin (0.2-1) mg/dl Direct Bilirubin (0-0.2) mg/dl AST (15-37) U/L ALT (12-78) U/L Alkaline Phosphatase (45-117) U/L Total Creatine Kinase (39-308) U/L Troponin I (0-0.045) ng/ml NT-Pro-B Natriuret Pep (0-900) pg/ml Total Protein (6.4-8.2) gm/dl Albumin (3.4-5.0) gm/dl Lipase (73-393) U/L Procalcitonin (0-0.5) ng/ml TSH (0.300-4.500) uIu/ml Urine Color Urine Appearance (Clear) Urine pH (4.5-7.5) Ur Specific [place] (1.000-1.030) Urine Protein (Negative) Urine Glucose (UA) (Negative) Urine Ketones (Negative) Urine Blood (Negative) Urine Nitrite (Negative) Urine Bilirubin (Negative) Urine Urobilinogen (Negative) Ur Leukocyte Esterase (Negative) Urine WBC (Auto) (0-5) /hpf Urine RBC (Auto) (0-4) /hpf U Hyaline Cast (Auto) (0-5) /lpf U Epithel Cells (Auto) (0-5) /lpf Urine Bacteria (Auto) (Negative) Ur Renal Epithelial Cell Urine Mucus (None Prsent) COVID-19 Eval Order SARS-CoV-2 (PCR) NEGATIVE (Negative) 07/13/20 Range/Units 03:50 WBC (4.8-10.8) K/uL RBC (4.7-6.1) M/uL Hgb (14.0-18.0) g/dL Hct (42-52) % MCV (80-100) fL MCH (25-34) pg MCHC (32-36) g/dL RDW Std Deviation (36.4-46.3) fL RDW Coeff of Maia (11.5-14.5) % Plt Count (130-400) K/uL MPV (7.4-10.4) fL Immature Gran % (Auto) % Neut % (Auto) % Lymph % (Auto) % [place] % (Auto) % Eos % (Auto) % Baso % (Auto) % Neut # (Auto) (1.4-6.5) K/uL Lymph # (Auto) (1.2-3.4) K/uL [place] # (Auto) (0.11-0.59) K/uL Eos # (Auto) (0-0.5) K/uL Baso # (Auto) (0-0.2) K/uL Immature Gran # (Auto) (0.00-0.02) K/uL Dohle Bodies PT (9.0-12.0) Seconds INR (0.9-1.1) APTT (21.0-31.0) Seconds PTT Ratio D-Dimer (0-500) ug/L FEU ABG pH (7.35-7.45) ABG pCO2 (35-46) mmHg ABG pO2 (80-95) mmHg ABG HCO3 (19-24) mmol/L ABG O2 Saturation (90-95) % ABG Base Excess (-9-1.8) mEq/L Vega Test (Pos) Barometric Pressure mm/Hg Oxygen Given Sodium (136-145) mmol/L Potassium (3.5-5.1) mmol/L Chloride (98-107) mmol/L Carbon Dioxide (21-32) mmol/L Anion Gap (3-11) BUN (7-18) mg/dl Creatinine (0.6-1.4) mg/dl Est Cr Clr Drug Dosing ml/min Est GFR ( Amer) ml/min Est GFR (Non-Af Amer) ml/min BUN/Creatinine Ratio (10-20) Glucose (70-99) mg/dl Lactate (0.4-2.0) mmol/L Calcium (8.5-10.1) mg/dl Magnesium (1.8-2.4) mg/dl Total Bilirubin (0.2-1) mg/dl Direct Bilirubin (0-0.2) mg/dl AST (15-37) U/L ALT (12-78) U/L Alkaline Phosphatase (45-117) U/L Total Creatine Kinase (39-308) U/L Troponin I (0-0.045) ng/ml NT-Pro-B Natriuret Pep (0-900) pg/ml Total Protein (6.4-8.2) gm/dl Albumin (3.4-5.0) gm/dl Lipase (73-393) U/L Procalcitonin (0-0.5) ng/ml TSH (0.300-4.500) uIu/ml Urine Color Yellow Urine Appearance Clear (Clear) Urine pH 5.5 (4.5-7.5) Ur Specific [place] 1.038 H (1.000-1.030) Urine Protein 1+ H (Negative) Urine Glucose (UA) 2+ H (Negative) Urine Ketones Negative (Negative) Urine Blood Negative (Negative) Urine Nitrite Negative (Negative) Urine Bilirubin Negative (Negative) Urine Urobilinogen Negative (Negative) Ur Leukocyte Esterase Negative (Negative) Urine WBC (Auto) 1-5 (0-5) /hpf Urine RBC (Auto) 0-4 (0-4) /hpf U Hyaline Cast (Auto) 10-30 H (0-5) /lpf U Epithel Cells (Auto) 5-10 H (0-5) /lpf Urine Bacteria (Auto) 1+ H (Negative) Ur Renal Epithelial Cell Not Reportable Urine Mucus Present A (None Prsent) COVID-19 Eval Order SARS-CoV-2 (PCR) (Negative) Administered Medications Propofol (Diprivan) 1,000 mg in 100 mls @ 15.384 mls/hr IV .[id number] [facility]; Protocol Stop: 07/16/20 05:29 Last Admin: 07/13/20 05:15 Dose: 20 mcg/kg/min, 15.4 mls/hr Documented by: [id number] Cosigned by: [id number] Norepinephrine Bitartrate (Levophed/D5w) 8 mg in 508 mls @ 24.422 mls/hr IV .[id number] [facility]; Protocol Stop: 08/12/20 05:44 Last Admin: 07/13/20 05:45 Dose: 0.05 mcg/kg/min, 24.4 mls/hr Documented by: [id number] Cosigned by: [id number] Discontinued Medications Furosemide (Furosemide 40 Mg/4 Ml Vial) 40 mg IV NOW STA Stop: 07/13/20 01:24 Last Admin: 07/13/20 01:30 Dose: 40 mg Documented by: [id number] Lorazepam (Ativan) 0.5 mg in 1 mls @ 1 mls/min IV NOW STA Stop: 07/13/20 02:19 Last Admin: 07/13/20 02:32 Dose: 1 mls/min Documented by: [id number] Piperacillin Sod/Tazobactam Sod (Zosyn) 4.5 gm in 120 mls @ 240 mls/hr IV NOW ONE Stop: 07/13/20 03:28 Last Infusion: 07/13/20 04:16 Dose: 0 mls/hr Documented by: [id number] Admin: 07/13/20 03:36 Dose: 240 mls/hr Documented by: [id number] Vancomycin HCl 2,500 mg/ (Sodium Chloride) 550 mls @ 200 mls/hr IV NOW ONE Stop: 07/13/20 05:43 Last Admin: 07/13/20 04:16 Dose: 200 mls/hr Documented by: [id number] Methylprednisolone 20 mg/ (Syringe) 0.32 mls @ 1.5 mls/min IV NOW STA Stop: 07/13/20 03:33 Last Admin: 07/13/20 03:34 Dose: 1.5 mls/min Documented by: [id number] Sodium Chloride (Nss 1000ml) 1,000 mls @ 500 mls/hr IV .Q2H ONE Stop: 07/13/20 05:40 Last Admin: 07/13/20 04:45 Dose: 500 mls/hr Documented by: [id number] Ioversol (Optiray 350 500ml) 125 ml IV ONCE ONE Stop: 07/13/20 02:57 Last Admin: 07/13/20 02:56 Dose: 87 ml Documented by: [id number] Ipratropium [place] (Ipratropium [place] Neb Soln 0.02% 2.5 Ml Vial) 0.5 mg INH NOW STA Stop: 07/13/20 03:09 Last Admin: 07/13/20 03:24 Dose: 0.5 mg Documented by: [id number] Levalbuterol HCl (Levalbuterol 1.25mg/0.5ml Neb) 1.25 mg INH NOW STA Stop: 07/13/20 03:09 Last Admin: 07/13/20 03:24 Dose: 1.25 mg Documented by: [id number] Methylprednisolone (Methylprednisolone 40 Mg/Ml Vial) Confirm Administered Dose 40 mg .ROUTE .STK-MED ONE Stop: 07/13/20 03:33 Last Admin: 07/13/20 03:34 Dose: Not Given Documented by: [id number] Miscellaneous (Rapid Sequence Induction Bag) Confirm Administered Dose 1 ea .ROUTE .STK-MED ONE Stop: 07/13/20 05:01 Last Admin: 07/13/20 05:00 Dose: 1 ea Documented by: [id number] Propofol (Propofol Iv Emulsion 10 Mg/Ml 100 Ml Vial) Confirm Administered Dose 1,000 mg IV .STK-MED ONE Stop: 07/13/20 05:09 Last Admin: 07/13/20 05:21 Dose: Not Given Documented by: [id number] Discharge Plan Visit Data Chief Complaint: Respiratory Problems Stated Complaint: HAVING TROUBLE BREATHING ED Provider: Jose Karimi Discharge Problem: Acute respiratory failure, Multifocal pneumonia, Lactic acidosis Discharge Instructions Interventions: ED Discharge Assessment Last Done: 07/13/20 04:45 Forms Stand Alone Forms: My [facility] Prescriptions Prescriptions: No Action buspirone 15 mg tablet 15 mg PO BID RF: 0 clopidogrel 75 mg tablet 75 mg PO DAILY RF: 0 duloxetine 30 mg capsule,delayed release(DR/EC) 30 mg PO DAILY RF: 0 pantoprazole 40 mg tablet,delayed release (DR/EC) 40 mg PO DAILY RF: 0 Trelegy Ellipta 100-62.5-25 mcg blister with device 1 inh inhalation DAILY Qty: 60 RF: 3 valacyclovir [Valtrex] 500 mg Tablet 500 mg PO PM RF: 0 atorvastatin 80 mg tablet 80 mg PO QAM RF: 0 amlodipine [Norvasc] 5 mg tablet 5 mg PO QAM RF: 0 acetaminophen 325 mg Tablet 650 mg PO Q4 MDD 10 tabs daily PRN (Reason: Fever Or Pain) RF: 0 ibuprofen 200 mg Tablet 600 mg PO Q6H PRN (Reason: Pain) RF: 0 dexamethasone 4 mg tablet 8 mg PO Q6H RF: 0 metoprolol tartrate 25 mg tablet 25 mg PO BID RF: 0 Referrals Referrals: Melissa Acuna DO [Primary Care Provider] - Discharge Problem: Acute respiratory failure Qualifiers: Respiratory failure complication: hypoxia Qualified Code(s): J96.01 - Acute respiratory failure with hypoxia
[2020-07-13 01:10] LABS: Hemoglobin 16.5 g/dL (14.0-18.0); Mean Corpuscular Hemoglobin 30.2 pg (25-34); Mean Corpuscular Hgb Conc 34.4 g/dL (32-36); Mean Corpuscular Volume 87.8 fL (80-100); Mean Platelet Volume 9.7 fL (7.4-10.4); Platelet Count 127 K/uL (130-400); RDW Coefficient of Variation 14.4 % (11.5-14.5); RDW Standard Deviation 46.5 fL (36.4-46.3); Red Blood Count 5.47 M/uL (4.7-6.1); White Blood Count 13.13 K/uL (4.8-10.8)
[2020-07-13] MEDS ORDERED: FUROSEMIDE 40 MG/4 ML VIAL IV STA (01:23)
[2020-07-13 01:28] LABS: Alanine Aminotransferase 29 U/L (12-78); Albumin Level 3.2 gm/dl (3.4-5.0); Aspartate Aminotransferase 12 U/L (15-37); BUN Creatinine Ratio 32.5 (10-20); Bilirubin Direct 0.2 mg/dl (0-0.2); Blood Urea Nitrogen 31 mg/dl (7-18); Calcium 8.4 mg/dl (8.5-10.1); Carbon Dioxide 23 mmol/L (21-32); Chloride 109 mmol/L (98-107); Creatinine Clr Calc Pharmacy 116.6 ml/min; Est GFR (African American) 103.4 ml/min; Est GFR (Non-African American) 89.3 ml/min; Glucose 278 mg/dl (70-99); Lipase 113 U/L (73-393); Magnesium 2.2 mg/dl (1.8-2.4); Potassium 4.2 mmol/L (3.5-5.1); Sodium 141 mmol/L (136-145)
[2020-07-13 01:30] LABS: Alkaline Phosphatase 82 U/L (45-117); Bilirubin,Total 0.6 mg/dl (0.2-1); Creatine Kinase 60 U/L (39-308); NT Pro B Type Natriuretic Pept 229 pg/ml (0-900); Total Protein 5.7 gm/dl (6.4-8.2); Troponin I < 0.015 ng/ml (0-0.045)
[2020-07-13 01:39] LABS: Partial Thromboplastin Time 27.4 Seconds (21.0-31.0); Prothrombin Time 9.9 Seconds (9.0-12.0)
[2020-07-13 01:43] LABS: D Dimer 1360 ug/L FEU (0-500)
[2020-07-13 01:46] LABS: Basophils # (auto) 0.01 K/uL (0-0.2); Basophils % (auto) 0.1 %; Dohle Bodies Occasional; Immature Granulocytes # (auto) 0.14 K/uL (0.00-0.02); Immature Granulocytes % (auto) 1.1 %; Lymphocytes # (auto) 1.07 K/uL (1.2-3.4); Lymphocytes % (auto) 8.1 %; Monocytes # (auto) 1.02 K/uL (0.11-0.59); Monocytes % (auto) 7.8 %; Neutrophils # (auto) 10.89 K/uL (1.4-6.5); Neutrophils % (auto) 82.9 %
[2020-07-13] MEDS ORDERED: LORazepam 0.5 MG/1 ML VIAL IV STA (02:18)
[2020-07-13] MEDS ORDERED: OPTIRAY 350 500ml IV ONE (02:56)
[2020-07-13] MEDS ORDERED: VANCOMYCIN CONSULT ACTIVE PRN (02:59)
[2020-07-13] MEDS ORDERED: VANCOMYCIN HCL 2,500 MG in SODIUM CHLORIDE 0.9% 500 ML IV ONE (02:59)
[2020-07-13] MEDS ORDERED: PIPERACILL/TAZOBAC CONSULT ACTIVE PRN (02:59)
[2020-07-13] MEDS ORDERED: PIPERACILLIN/TAZOBACTAM 4.5 GM/120 ML BAG IV ONE (02:59)
[2020-07-13] MEDS ORDERED: XOPENEX/ATROVENT 1.25mg/0.5MG NEB COMBO NEB STA (03:05)
[2020-07-13] MEDS ORDERED: IPRATROPIUM BROMIDE NEB SOLN 0.02% 2.5 ML VIAL INH STA (03:08)
[2020-07-13] MEDS ORDERED: LEVALBUTEROL 1.25MG/0.5ML NEB INH STA (03:08)
[2020-07-13] MEDS ORDERED: methylPREDNISolone 20 MG in SYRINGE 0 ML IV STA (03:32)
[2020-07-13] MEDS ORDERED: SODIUM CHLORIDE 0.9% 1000ML 1,000 ML IV ONE (03:41)
[2020-07-13 03:42] LABS: Base Excess ABG -6.3 mEq/L (-9-1.8); HCO3 ABG 21 mmol/L (19-24); Oxygen Saturation ABG 97.4 % (90-95); PCO2 ABG 48 mmHg (35-46); PO2 ABG 106 mmHg (80-95); pH ABG 7.26 (7.35-7.45)
[2020-07-13] MEDS ORDERED: INSULIN GLARGINE SOLOSTAR 100 UNITS/ML 3 ML PEN SC STA (03:43)
--- NOTE | 2020-07-13 03:44 | History & Physical Report ---
Date of Service July 13, 2020 Assessment & Plan (1) Severe sepsis: SIRS plus hypoxemia plus lactic acidosis Secondary to HCAP, [place] [facility]ocompromised patient given ongoing steroid therapy for lymphadenopathy/Castleman's disease Hodgkin's lymphoma status post chemotherapy Asthma/reactive airway disease exacerbation secondary to bronchopneumonia HTN, patient noted to be hypotensive post intubation hx CVA Pancytopenia Steroid-induced hyperglycemia rule out DM hyperlipidemia on statin Rx ICU Baseline ABG Vent management CS, Vancomycin, Cefepime IVF, follow lactic acid Appropriate to hold home beta-jaci for now given hypotension steroid regimen IV insulin protocol BG goal 1 40-1 80 Check hemoglobin A1c DVT prophylaxis. SCDs Re: Thrombocytopenia Full code Patient partner requesting updates from providers. Ms. Bell Combs, contact #[phone]. Total critical time was 45 minutes. Text document was generated using [employer] voice recognition software. It may contain grammatical or spelling errors. Kindly contact undersigned for clarification of any documentation item in question. History of Present Illness Chief Complaint: Chest pain, worsening shortness of breath Primary Care Provider: Melissa Acuna, DO History obtained from patient and records. History somewhat difficult to obtain from patient secondary to respiratory distress/BiPAP appliance. 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 Last confinement [facility] confinement April 2020 for hypertensive urgency. Recent [place] [facility] for diffuse lymphadenopathy. Concern for lymphoma recurrence following results of PET scan. Patient had bone marrow biopsy and left axilla core biopsy done during confinement. Biopsy negative for malignancy. As per documentation, due to regression of lymphadenopathy, patient's oncologist recommended work-up as outpatient. Patient discharged on Decadron course. 1 day history of junky cough symptoms without fever, chills as per patient. Patient denies aspiration. Not sure about recent COVID-19 contacts due to recent [facility] [place]. Patient denies chest pain or fluid retention or weight gain.. Worsening shortness of breath noted last night. At the ER, BiPAP initiated for respiratory distress, hypoxemia. Initially given Lasix for possible CHF. Patient received vancomycin and Zosyn for sepsis. Patient subsequently intubated at the ER due to worsening clinical condition. MEDICAL HISTORY: As above. SURGICAL HISTORY: 1. Lung biopsy. 2. Lobectomy procedure. 3. A-Port placement. 4. Ear surgery 5. Lymph node biopsy FAMILY HISTORY: There is a family history of lymphoma. PERSONAL SOCIAL HISTORY: Nonsmoker. 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 Allergies Allergy/AdvReac Type Severity Reaction Status Date / Time No Known Allergies Allergy Verified 07/13/20 01:19 Home Medications Medication Instructions Recorded Confirmed Type valacyclovir [Valtrex] 500 mg PO PM 03/15/18 07/13/20 History buspirone 15 mg tablet 15 mg PO BID 09/30/19 07/13/20 History acetaminophen 650 mg PO Q4 PRN MDD 10 tabs daily 04/21/20 07/13/20 History amlodipine [Norvasc] 5 mg PO QAM 04/21/20 07/13/20 History atorvastatin 80 mg PO QAM 04/21/20 07/13/20 History ibuprofen 600 mg PO Q6H PRN 04/21/20 07/13/20 History clopidogrel 75 mg tablet 75 mg PO DAILY 06/15/20 07/13/20 History duloxetine 30 mg capsule,delayed 30 mg PO DAILY 06/15/20 07/13/20 History release fluticasone fur. 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 Bustillos 02/11/2020 Thrombocytopenia chronic thrombocytopenia dating back to at least 02/2018, baseline plts 80's- low 100's range per chart review, most recent plt level 109 02/05/20 Surgical History History of colonoscopy History of lobectomy of lung RML > 2003 History of removal of Port-a-Cath Hx of lymph node excision right neck and right axillary S/P lymph node biopsy (02/11/20) Right Supracalvicular Lymph Node Biopsy Dr. Bustillos 02/11/2020 Family History Brother Cancer Hodgkin's lymphoma Other Diabetes Social History Smoking Status: Never smoker Second Hand Exposure: No; Hx Alcohol Use: No Hx Substance Use: No Preferred Language: Latvian Communication Ability: Effective Rural Sociologist Required: No Current Living Situation: Significant Other Current Living Situation Comment: Bell Combs, girlfriend Feels Safe at Home: Yes Assistive Devices: Glasses Review of Systems Review of Systems: As per HPI, all 10 systems reviewed, all other ROS negative Physical Exam Physical Exam: (Prior to endotracheal intubation) GENERAL: uncomfortable, morbidly obese, respiratory distress SKIN: Pallor, warm HEENT: Alopecia, [place] palpebral conjunctivae, no ptosis, dry buccal mucosa, BIPAP in place NECK : Supple, short neck, no tenderness CHEST : Decreased breath sounds, bilateral rhonchi, no tenderness HEART : Tachycardic, no obvious murmurs ABDOMEN: Some distention, nontender EXTREMITIES : Minimal LE swelling, no LE tenderness, no other conspicuous deformities noted NEUROLOGIC : Coherent, no facial asymmetry, no other gross focality Results & Data Results & Data ([facility]) Vital Signs (Past 12 Hours) Vital Signs Temp Pulse Pulse Resp BP Pulse Ox 07/13/20 03:26 105 H 36 H 96 07/13/20 03:01 95 H 26 H 132/71 94 07/13/20 02:56 94 H 36 H 94 07/13/20 02:31 98 H 24 132/99 95 07/13/20 02:00 98 H 32 H 129/97 93 07/13/20 01:30 94 H 32 H 122/87 96 07/13/20 01:29 94 H 31 H 129/97 96 07/13/20 01:00 90 30 H 97 07/13/20 00:40 88 L 07/13/20 00:30 36.7 C 87 28 H 139/73 89 L Laboratory Results Laboratory Results WBC 13.13 K/uL (4.8-10.8) H 07/13/20 00:52 RBC 5.47 M/uL (4.7-6.1) 07/13/20 00:52 Hgb 16.5 g/dL (14.0-18.0) 07/13/20 00:52 Hct 48.0 % (42-52) 07/13/20 00:52 MCV 87.8 fL (80-100) 07/13/20 00:52 MCH 30.2 pg (25-34) 07/13/20 00:52 MCHC 34.4 g/dL (32-36) 07/13/20 00:52 RDW Std Deviation 46.5 fL (36.4-46.3) H 07/13/20 00:52 RDW Coeff of Maia 14.4 % (11.5-14.5) 07/13/20 00:52 Plt Count 127 K/uL (130-400) L 07/13/20 00:52 MPV 9.7 fL (7.4-10.4) 07/13/20 00:52 Immature Gran % (Auto) 1.1 % 07/13/20 00:52 Neut % (Auto) 82.9 % 07/13/20 00:52 Lymph % (Auto) 8.1 % 07/13/20 00:52 Dunn % (Auto) 7.8 % 07/13/20 00:52 Eos % (Auto) 0.0 % 07/13/20 00:52 Baso % (Auto) 0.1 % 07/13/20 00:52 Neut # (Auto) 10.89 K/uL (1.4-6.5) H 07/13/20 00:52 Lymph # (Auto) 1.07 K/uL (1.2-3.4) L 07/13/20 00:52 Dunn # (Auto) 1.02 K/uL (0.11-0.59) H 07/13/20 00:52 Eos # (Auto) 0.00 K/uL (0-0.5) 07/13/20 00:52 Baso # (Auto) 0.01 K/uL (0-0.2) 07/13/20 00:52 Immature Gran # (Auto) 0.14 K/uL (0.00-0.02) H 07/13/20 00:52 Dohle Bodies Occasional 07/13/20 00:52 PT 9.9 Seconds (9.0-12.0) 07/13/20 00:52 INR 1.0 (0.9-1.1) 07/13/20 00:52 APTT 27.4 Seconds (21.0-31.0) 07/13/20 00:52 PTT Ratio 1.0 07/13/20 00:52 D-Dimer 1360 ug/L FEU (0-500) H* 07/13/20 00:52 Sodium 141 mmol/L (136-145) 07/13/20 00:52 Potassium 4.2 mmol/L (3.5-5.1) 07/13/20 00:52 Chloride 109 mmol/L (98-107) H 07/13/20 00:52 Carbon Dioxide 23 mmol/L (21-32) 07/13/20 00:52 Anion Gap 9.0 (3-11) 07/13/20 00:52 BUN 31 mg/dl (7-18) H 07/13/20 00:52 Creatinine 0.96 mg/dl (0.6-1.4) 07/13/20 00:52 Est Cr Clr Drug Dosing 116.6 ml/min 07/13/20 00:52 Est GFR ( Amer) 103.4 ml/min 07/13/20 00:52 Est GFR (Non-Af Amer) 89.3 ml/min 07/13/20 00:52 BUN/Creatinine Ratio 32.5 (10-20) H 07/13/20 00:52 Glucose 278 mg/dl (70-99) H 07/13/20 00:52 Lactate 3.4 mmol/L (0.4-2.0) H* 07/13/20 02:58 Calcium 8.4 mg/dl (8.5-10.1) L 07/13/20 00:52 Magnesium 2.2 mg/dl (1.8-2.4) 07/13/20 00:52 Total Bilirubin 0.6 mg/dl (0.2-1) 07/13/20 00:52 Direct Bilirubin 0.2 mg/dl (0-0.2) 07/13/20 00:52 AST 12 U/L (15-37) L 07/13/20 00:52 ALT 29 U/L (12-78) 07/13/20 00:52 Alkaline Phosphatase 82 U/L (45-117) 07/13/20 00:52 Total Creatine Kinase 60 U/L (39-308) 07/13/20 00:52 Troponin I < 0.015 ng/ml (0-0.045) 07/13/20 00:52 NT-Pro-B Natriuret Pep 229 pg/ml (0-900) 07/13/20 00:52 Total Protein 5.7 gm/dl (6.4-8.2) L 07/13/20 00:52 Albumin 3.2 gm/dl (3.4-5.0) L 07/13/20 00:52 Lipase 113 U/L (73-393) 07/13/20 00:52 TSH 1.020 uIu/ml (0.300-4.500) 07/13/20 00:52 COVID-19 Eval Order Covid19 at [facility] 07/13/20 01:10 SARS-CoV-2 (PCR) NEGATIVE (Negative) 07/13/20 01:[address] chest initial read: Comparison: CTA chest 02/24/2020 Examination is limited by motion and patient scanning in arms down positioning. No discrete acute pulmonary embolism is seen. There are patchy and nodular opacities distributed both lungs, confluent within the left lower lobe, compatible with an acute infectious or inflammatory process. There is a trace left pleural effusion with fluid extending into the left major fissure. Coronary artery calcifications. Left IJ Port-A-Cath terminates in the right atrium. Overall interval decrease in mediastinal adenopathy. EKG as per my interpretation rate 95, NSR, normal axis, no ischemia
[2020-07-13 03:45] LABS: Allen Test Pos (Pos)
[2020-07-13 04:11] LABS: Appearance Urine Clear (Clear); Bilirubin Urine Negative (Negative); Blood Urine Negative (Negative); Color Urine Yellow; Glucose Urine UA 2+ (Negative); Ketones Urine Negative (Negative); Leukocyte Esterase Urine Negative (Negative); Nitrite Urine Negative (Negative); Protein Urine 1+ (Negative); Specific Gravity Urine 1.038 (1.000-1.030); Urobilinogen Urine Negative (Negative); pH Urine 5.5 (4.5-7.5)
[2020-07-13 04:25] LABS: Mucus Urine Present (None Prsent); RBC Urine Automated 0-4 /hpf (0-4)
[2020-07-13 04:28] LABS: Bacteria Urine Automated 1+ (Negative)
[2020-07-13] MEDS ORDERED: RAPID SEQUENCE INDUCTION BAG ONE (05:00)
[2020-07-13] MEDS ORDERED: PROPOFOL IV EMULSION 10 MG/ML 100 ML VIAL IV ONE (05:08)
[2020-07-13] MEDS ORDERED: MIDAZOLAM HCL 1 MG/ML 2ML VIAL ONE (05:08)
[2020-07-13] MEDS ORDERED: PROPOFOL BOLUS FROM BAG IV PRN (05:18)
[2020-07-13] MEDS ORDERED: STAT IV Infusion **Titration per Protocol STA ×3 (05:18→07:58)
[2020-07-13] MEDS ORDERED: propofoL 1,000 MG/100 ML VIAL IV SCH (05:30)
[2020-07-13] MEDS ORDERED: MIDAZOLAM BOLUS FROM BAG IV PRN (05:32)
[2020-07-13] MEDS ORDERED: ROCURONIUM BROMIDE 10 MG/ML 5 ML VIAL IV ONE (05:34)
[2020-07-13] MEDS ORDERED: fentaNYL DRIP 1,250 MCG/250 ML BAG IV SCH (05:45)
[2020-07-13] MEDS: NOREPINEPHRINE/D5W 8 MG/508 ML BAG IV SCH ×3 (05:45→08:59)
[2020-07-13] MEDS ORDERED: MIDAZOLAM HCL 125 MG/250 ML BAG IV SCH (05:45)
[2020-07-13] MEDS ORDERED: methylPREDNISolone 125 MG/2 ML VIAL IV STA (05:51)
[2020-07-13] MEDS ORDERED: CISATRACURIUM BESYLATE 40 MG in 0.9 % SODIUM CHLORIDE 80 ML IV SCH (06:00)
[2020-07-13 06:03] LABS: iSTAT Arterial Blood Gas HCO3 22 meg/L (19-24); iSTAT Arterial Blood Gas pCO2 67 mmHg (35-46); iSTAT Arterial Blood Gas pH 7.12 (7.35-7.45); iSTAT Arterial Blood Gas pO2 67 mmHg (80-95); iSTAT Carbon Dioxide 24 mmol/L (24-31); iSTAT Hematocrit 53 % (42-52); iSTAT Potassium 4.7 mmol/L (3.3-5.0); iSTAT Sodium 141 mmol/L (135-144)
[2020-07-13] MEDS ORDERED: LACTATED RINGER'S 1,000 ML IV SCH (06:35)
[2020-07-13] MEDS ORDERED: PROMETHAZINE HCL 12.5 MG in SODIUM CHLORIDE 0.9% 50 ML IV PRN (06:35)
[2020-07-13] MEDS ORDERED: INSULIN PROTOCOL GOAL RANGE ONE (06:35)
[2020-07-13] MEDS ORDERED: ACETAMINOPHEN 1,000 MG/100 ML VIAL IV PRN (06:35)
[2020-07-13] MEDS ORDERED: IPRATROPIUM BROMIDE NEB SOLN 0.02% 2.5 ML VIAL INH SCH (06:35)
[2020-07-13] MEDS ORDERED: MODERATE STRESS LEVEL ONE (06:35)
[2020-07-13] MEDS ORDERED: INSULIN REGULAR 250 UNITS in SODIUM CHLORIDE 0.9% 247.5 ML IV SCH (06:35)
[2020-07-13] MEDS ORDERED: ICU PROTOCOL FOR HYPERGLYCEMIA PRN (06:35)
[2020-07-13] MEDS ORDERED: CEFEPIME CONSULT ACTIVE PRN (06:35)
[2020-07-13] MEDS ORDERED: VECURONIUM BROMIDE 10 MG VIAL IV ONE (06:41)
[2020-07-13] MEDS ORDERED: STAT IV STA (06:54)
[2020-07-13] MEDS ORDERED: SODIUM BICARB 8.4% INJ 50 MEQ/50 ML SYR IV STA (06:54)
[2020-07-13] MEDS ORDERED: SODIUM BICARB 8.4% INJ 50 MEQ/50 ML SYR IV ONE ×2 (06:54→09:18)
[2020-07-13] MEDS ORDERED: LEVALBUTEROL TARTRATE 15 GM HFA.AER.AD INH SCH (07:00)
[2020-07-13] MEDS ORDERED: IPRATROPIUM BROMIDE HFA INHALER INH SCH (07:00)
[2020-07-13 07:03] LABS: Renal Epithelial Cells Urine 0-5 /lpf (0-5)
[2020-07-13 07:04] LABS: iSTAT Arterial Blood Gas HCO3 19 meg/L (19-24); iSTAT Arterial Blood Gas pCO2 52 mmHg (35-46); iSTAT Arterial Blood Gas pH 7.17 (7.35-7.45); iSTAT Arterial Blood Gas pO2 50 mmHg (80-95); iSTAT Carbon Dioxide 20 mmol/L (24-31)
--- NOTE | 2020-07-13 07:06 | XRay Report ---
XR chest 1V portable CLINICAL HISTORY: Shortness of breath COMPARISON STUDY: 06/15/2020 FINDINGS: There is a left-sided A-Port catheter unchanged in position. The tip projects over the righ t atrium. Since the prior study, the patient has developed bibasilar pulmonary airspace opacities. Th e left basilar opacity has a masslike appearance measuring 11 cm. This statistically represents a rou nd pneumonia. Short-term radiographic follow-up are recommended.[ IMPRESSION: 1. Interval development of bilateral pulmonary airspace opacities suspicious for multifocal pneumonia 2. The left basilar opacity has a masslike appearance measuring 11 cm. This statistically represents a round pneumonia. Short-term radiographic follow-up is recommended. ACT 112: Negative or not required by law. Electronically signed by: Kt Doss M.D. 07/13/2020 7:04 AM
--- NOTE | 2020-07-13 07:10 | XRay Report ---
XR chest 1V portable CLINICAL HISTORY: Respiratory failure. Post intubation study. COMPARISON STUDY: 07/13/2020 FINDINGS: There is been interval placement of endotracheal tube. Tip is positioned within 1 cm above the kanwal. There is a left subclavian central venous catheter. There is slight progression in the bi lateral pulmonary airspace opacities. Small pleural effusions may be present.[ IMPRESSION: 1. Slight progression in the bilateral pulmonary airspace opacities consistent with a multifocal pneu monia 2. Interval placement of an endotracheal tube which is positioned within 1 cm of the kanwal. Tube rep ositioning recommended. ACT 112: Negative or not required by law. Electronically signed by: Kt Doss M.D. 07/13/2020 7:09 AM
--- NOTE | 2020-07-13 07:17 | Procedure Note ---
Procedure Note Date of Service July 13, 2020 Note ARTERIAL LINE PROCEDURE NOTE: Procedure: Arterial Line Placement Attending: Dr. Kyrie Chow Provider: PANDA Raygoza Indication: Monitoring on Pressors Anesthesia: Lidocaine 1% Line placed emergently in the setting of hypotension requiring vasopressor support. A time-out was completed verifying correct patient, procedure, site, positioning, and implant(s) or special equipment if applicable. Allens test was performed to ensure adequate perfusion. Patients left wrist was prepped and draped in the usual sterile fashion. Ultrasound guidance was used to aid needle placement. A 20g Arrow arterial line was introduced into the left radial artery. Catheter was threaded, and the needle was removed with appropriate blood return. Good waveform was observed. The patient tolerated the procedure well. Confirmation of placement with ultrasound. Blood Loss: Minimal Complications: None Procedural Ultrasound Guidance: Procedure Date: 07/13/2020 Indication: Arterial line insertion Attending: Dr. Kyrie Chow Provider: PANDA Raygoza Artery Identified: YES Line confirmed in Artery with ultrasound: Yes Complications: NONE Patient tolerated procedure: WELL Coding
[2020-07-13 07:21] LABS: Estimated Average Glucose 134 mg/dl; Hemoglobin A1C 6.3 % (4.5-5.6)
[2020-07-13] MEDS ORDERED: DEXTROSE 50% 50 ML SYRINGE IV PRN (07:30)
[2020-07-13] MEDS ORDERED: GLUCOSE 40% GEL 15 GM TUBE PO PRN (07:30)
[2020-07-13] MEDS ORDERED: CARBOHYDRATES FOR HYPOGLYCEMIA PO PRN (07:30)
[2020-07-13] MEDS ORDERED: GLUCOSE 10 TABS/TUBE PO PRN (07:30)
[2020-07-13] MEDS ORDERED: INSULIN ASPART 100 UNITS/ML 3 ML PEN SC SCH (07:30)
[2020-07-13] MEDS ORDERED: GLUCAGON FOR INJ 1 MG VIAL IM PRN (07:30)
[2020-07-13] MEDS ORDERED: FUROSEMIDE 40 MG/4 ML VIAL IV ONE (07:41)
[2020-07-13 07:45] LABS: Hematocrit (blood only) 51.9 % (42-52); Hemoglobin 17.2 g/dL (14.0-18.0); Mean Corpuscular Hemoglobin 29.5 pg (25-34); Mean Corpuscular Volume 88.9 fL (80-100); Mean Platelet Volume 10.1 fL (7.4-10.4); Platelet Count 116 K/uL (130-400); RDW Coefficient of Variation 14.9 % (11.5-14.5); RDW Standard Deviation 48.6 fL (36.4-46.3); Red Blood Count 5.84 M/uL (4.7-6.1); White Blood Count 7.12 K/uL (4.8-10.8)
[2020-07-13] MEDS: SODIUM BICARBONATE 8.4% 150 MEQ in DEXTROSE 5% 1,000 ML IV SCH ×2 (07:46→10:02)
[2020-07-13 07:51] LABS: Mean Corpuscular Hgb Conc 33.1 g/dL (32-36)
--- NOTE | 2020-07-13 07:56 | Procedure Note ---
Procedure Note Date of Service July 13, 2020 Procedure date: Noted above Procedure: fiberoptic bronchoscopy Pre-procedure indication: bilateral pulmonary infiltrates acute hypoxic respiratory failure severe ARDS Post-procedure Diagnosis: same as above Prior to Procedure: Informed Consent: Emergent consent implied. Attending Staff: Hoa Geronimo DO Resident/APC: not applicable Skin Prep: Not applicable Anesthesia: Continuous infusion The identity of the patient was confirmed and a bedside time out [was] performed. Description of Procedure: Fiberoptic bronchoscopy was performed via endotracheal tube. Bronchioalveolar lavage Was not performed. Findings included: Bloody secretions bilaterally unable to localize singular source of bleeding present in all lung pollock Complications: None Specimens: None. Estimated blood loss: Trace Coding CPT Codes Pulmonary/Thoracic - Pulmonary and Thoracic: 06960 Bronchoscopy, clear airways ([id number]) [facility] [place] Procedure Codes (Charges) Pulmonary/Thoracic Procedure 1: Pulmonary and Thoracic: 49112 Bronchoscopy, clear airways
[2020-07-13] MEDS ORDERED: NovoLIN-R BOLUS FROM BAG IV ONE (08:00)
[2020-07-13] MEDS ORDERED: CEFEPIME 2,000 MG in SYRINGE 0 ML IV SCH (08:00)
--- NOTE | 2020-07-13 08:05 | Communication Note ---
Date of Service: July 13, 2020 Patient is experiencing severe ARDS: PF ratio 50 on neuromuscular blockers, Received vancomycin and Zosyn adding Levaquin; Received 125 Solu-Medrol additionally given 8 mg Decadron. History of Hodgkin's lymphoma stage III, history of Castleman syndrome with lobectomy secondary to chronic infiltrate which from records sounds as if it is related to the mediastinal lymphadenopathy. Was seen for increasing work of breathing intubated in the ED for hypoxia. He has been on 100% FiO2 for greater than 4 hours, I feel the patient warrants evaluation for possible ECMO. Bronchoscopy completed please refer to that note for additional details concern for diffuse alveolar hemorrhage or pulmonary vascular congestion secondary to Castleman syndrome. Discussed with [facility] critical care will accept in transfer (Daryl), will attempt to prone the patient's and also transport in prone position.We have inserted a IJ for definitive access while in prone position. Patient continued to be hypoxic despite proning and aggressive pulmonary toilet and pressure control ventilation. Flight crew arrived and the patient's blood pressure continued to decompensate as frequent blood gases were also checked. Ultimately the patient's continued hypoxia worsened his metabolic acidosis and he entered into pulseless electrical activity, CPR was performed: See CPR flow sheet for further details. There was significant active pulmonary hemorrhage in the endotracheal tube. Patient was unresponsive to aggressive efforts and ultimately . I have personally spent 90 minutes of critical care time in the direct management of this patient. This is a life/limb threatening event. This includes time spent evaluating patient, direct bedside care, chart review, placing orders, interpretation of diagnostic studies, discussion with consultants, patient, and/or family members regarding treatment decisions, as well as other required patient management activities. This time is exclusive of all separately billable procedures, and teaching time and separate from and in addition to any other critical care service time. Coding Level of Care Code Critical Care ea addt'l 30 min
[2020-07-13] MEDS ORDERED: levoFLOXacin/D5W 750 MG/150 ML BAG IV SCH (08:15)
[2020-07-13 08:18] LABS: Alanine Aminotransferase 22 U/L (12-78); Albumin Globulin Ratio 0.9 (0.9-2); Albumin Level 2.4 gm/dl (3.4-5.0); Alkaline Phosphatase 75 U/L (45-117); BUN Creatinine Ratio 18.9 (10-20); Bilirubin,Total 0.7 mg/dl (0.2-1); Blood Urea Nitrogen 37 mg/dl (7-18); Calcium 7.7 mg/dl (8.5-10.1); Carbon Dioxide 19 mmol/L (21-32); Chloride 109 mmol/L (98-107); Creatinine Clr Calc Pharmacy 56.9 ml/min; Est GFR (African American) 43.6 ml/min; Est GFR (Non-African American) 37.7 ml/min; Globulin 2.6 gm/dl (2.5-4.0); Glucose 338 mg/dl (70-99)
[2020-07-13 08:28] LABS: Sodium 139 mmol/L (136-145)
[2020-07-13] MEDS ORDERED: SODIUM BICARBONATE 8.4% 150 MEQ in WATER, STERILE 1,000 ML IV SCH (08:30)
[2020-07-13 08:38] LABS: ALC (manual) 2.49 K/uL (1.2-3.4); ANC (manual) 3.13 K/uL (1.4-6.5); Lymphocytes # (manual) 2.49 K/uL (1.2-3.4); Metamyelocytes # (manual) 0.85 K/uL (0-0); Myelocytes # (manual) 0.64 K/uL (0-0); Neutrophils # (manual) 3.13 K/uL (1.4-6.5)
--- NOTE | 2020-07-13 08:39 | Procedure Note ---
Procedure Note Date of Service July 13, 2020 Note INTERNAL JUGULAR CENTRAL LINE PROCEDURE NOTE: Procedure: Internal Jugular Central Line Placement Attending: Dr. Joel Geronimo Provider: PANDA Raygoza Indication: Central Drug Administration Anesthesia: None Line placed emergently in the setting of hypotension/shock requiring vasopressor support. A time-out was completed verifying correct patient, procedure, site, positioning, and implants(s) or special equipment if applicable. Patients right neck was cleansed and draped in the typical sterile fashion using Chloraprep. The Internal Jugular Vein and Carotid Artery were identified using ultrasound. The Internal Jugular vein was cannulated under direct ultrasound guidance using an introducer needle on a syringe. Good venous blood return was maintained prior to removal of syringe from introducer needle. Using Seldinger Technique, a guide wire was advanced through the introducer needle without resistance. The introducer needle was removed and ultrasound images were obtained of the guide wire within the Internal Jugular Vein and saved to the patients medical record. A small incision was made in penetrating fashion at the guide wire insertion site utilizing an 11 blade scalpel. The dilator was advanced to the vessel without resistance. The dilator was exchanged for the triple lumen catheter which was advanced into the vessel without resistance. The guide wire was removed intact from the catheter without issue. Claves were placed on each catheter tip with confirmation of good blood flow from each lumen. Each port was easily flushed with sterile saline. The catheter was placed at 17 cm and sutured in place. BioPatch was applied to the catheter and a sterile Tegaderm dressing was applied over the catheter with careful attention to sterility. Patient tolerated procedure well. No immediate complications were met. Post procedure x-ray was completed, placement was appropriate and no pneumothorax was noted. Images obtained are saved for permanent record Procedural Ultrasound Guidance: Procedure Date: 07/14/2019 would Indication: Central venous catheter insertion Attending: Dr. Joel Geronimo Provider: PANDA Raygoza Artery AND Vein visualized: Yes Compressible Vein: Yes Guidewire or Short Catheter seen in vein prior to dilation: Yes Line confirmed in Vein with ultrasound: Yes Images obtained are saved for permanent record. Coding CPT Codes Tubes, Drains, and Vasc Access - Tubes, Drains, and Vasc Access: [id number] Place catheter in vein superior or inferior vena cava ([id number]) Tubes, Drains, and Vasc Access - Tubes, Drains, and Vasc Access: [id number] Ultrasound Guidance For Vascular ([id number]) Tubes, Drains, and Vasc Access - Tubes, Drains, and Vasc Access: [id number] Place Catheter In Artery ([id number]) Tubes, Drains, and Vasc Access - Tubes, Drains, and Vasc Access: [id number] Ultrasound Guidance For Vascular ([id number]) [facility] [place] Procedure Codes (Charges) Tubes, Drains, and Vasc Access Procedure 1: Tubes, Drains, and Vasc Access: [id number] Place catheter in vein superior or inferior vena cava Procedure 2: Tubes, Drains, and Vasc Access: [id number] Ultrasound Guidance For Vascular Procedure 3: Tubes, Drains, and Vasc Access: [id number] Place Catheter In Artery Procedure 4: Tubes, Drains, and Vasc Access: [id number] Ultrasound Guidance For Vascular
--- NOTE | 2020-07-13 08:59 | XRay Report ---
XR chest 1V portable CLINICAL HISTORY: Respiratory failure COMPARISON STUDY: 07/13/2020 FINDINGS: There is an endotracheal tube 5.5 cm above the kanwal. There is a left subclavian A-Port ca theter with its tip projected over the right atrium. There is been interval insertion of a right inte rnal jugular central venous catheter tip of which projects at the superior vena cava. No pneumothorax is visualized. There are extensive bilateral pulmonary airspace opacities suspicious for multifocal pneumonia. There are small pleural effusions.[ IMPRESSION: 1. Interval placement of a right internal jugular central venous catheter. No evidence of pneumothora x 2. Interval repositioning of the endotracheal tube which is currently 5.5 cm above the kanwal 3. Extensive lower lung zone predominant bilateral pulmonary airspace opacities consistent with a mul tifocal pneumonia 4. Small pleural effusions ACT 112: Negative or not required by law. Electronically signed by: Kt Doss M.D. 07/13/2020 8:58 AM
[2020-07-13] MEDS ORDERED: DULoxetine HCL 30 MG CAP PO SCH (09:00)
[2020-07-13] MEDS ORDERED: PANTOprazole 40 MG in SYRINGE 0 ML IV SCH (09:00)
[2020-07-13] MEDS ORDERED: CLOPIDOGREL BISULFATE 75 MG TAB PO SCH (09:00)
[2020-07-13] MEDS ORDERED: amLODIPine BESYLATE 5 MG TAB PO SCH (09:00)
[2020-07-13] MEDS ORDERED: PANTOprazole 40 MG TAB PO SCH (09:00)
[2020-07-13] MEDS ORDERED: METOPROLOL TARTRATE 25 MG TAB PO SCH ×2 (09:00)
[2020-07-13] MEDS ORDERED: busPIRone 15 MG TAB PO SCH ×2 (09:00)
[2020-07-13] MEDS ORDERED: dexAMETHasone 8 MG in SYRINGE 0 ML IV SCH (09:00)
[2020-07-13] MEDS ORDERED: ATORVASTATIN 40 MG TAB PO SCH (09:00)
[2020-07-13] MEDS ORDERED: KETAMINE / NSS 500 MG/500 ML BAG IV SCH (09:15)
[2020-07-13] MEDS ORDERED: Standard 16mcg/mL; 4 MG in 250 mL for HYPOTENSION IV SCH (09:15)
[2020-07-13] MEDS ORDERED: VASOPRESSION #-# Do NOT Titrate #-# Option IV SCH (09:15)
[2020-07-13 09:18] LABS: iSTAT Arterial Blood Gas HCO3 21 meg/L (19-24); iSTAT Arterial Blood Gas pCO2 60 mmHg (35-46); iSTAT Arterial Blood Gas pH 7.15 (7.35-7.45); iSTAT Arterial Blood Gas pO2 66 mmHg (80-95); iSTAT Carbon Dioxide 23 mmol/L (24-31); iSTAT Hematocrit 50 % (42-52); iSTAT Potassium 5.1 mmol/L (3.3-5.0); iSTAT Sodium 140 mmol/L (135-144)
[2020-07-13] MEDS ORDERED: SUCCINYLCHOLINE CHLORIDE 20 MG/ML 10 ML VIAL IV ONE (09:21)
[2020-07-13] MEDS ORDERED: fentaNYL citrate 100 MCG/2 ML CARP IV ONE (09:21)
[2020-07-13] MEDS ORDERED: MIDAZOLAM HCL 5 MG/ML 1 ML VIAL IV ONE (09:21)
[2020-07-13] MEDS ORDERED: ETOMIDATE 2 MG/ML 20 ML VIAL IV ONE (09:21)
--- NOTE | 2020-07-13 09:56 | CT Scan Report ---
CT ANGIOGRAM OF THE CHEST CLINICAL HISTORY: PE COMPARISON STUDY: February 24, 2020 TECHNIQUE: Following the IV administration of mL of Optiray, CT angiogram of the thorax was performed from the thoracic inlet to the lung bases utilizing the pulmonary embolus protocol. Images are revie wed in the axial, sagittal, and coronal planes. IV contrast was administered without complication. VA P imaging was performed. A dose lowering technique was utilized adhering to the principles of ALARA. CT DOSE: 1173.75 mGy.cm FINDINGS: Adequate opacification of the main pulmonary artery however evaluation of distal branches of the pulm onary artery is limited due to respiratory motion artifact. No evidence of central pulmonary embolus. Pulmonary artery is normal in caliber. No right heart strai n is seen. Mild pericardial effusion is new since prior study. Moderate to severe coronary calcifications are demonstrated, too prominent for patient's age group. There is left-sided Chemo-Port is seen with tip terminating within right atrium. Visualized portion of thyroid gland shows no evidence of focal lesion. Mild diffuse decrease in atten uation of thyroid parenchyma is demonstrated. Distal aspect of esophagus is patulous. Trachea and main main bronchi are patent. No patency of lumen is seen at the distal bronchi of bilate ral lower lobes. This study is is acquired during partial expiratory phase. Evaluation of lung parenchyma is significa ntly limited due to respiratory motion artifact. Patchy airspace consolidative opacities are seen within right middle and lower lobes. Large infiltrat es is seen within left lower lobe and lingula. Mild left pleural effusion is seen also associated wit h extension of the pleural fluid to the major fissure on the left. Limited evaluation of upper abdominal viscera shows no significant acute abnormalities however evalua tion is limited due to motion and beam hardening artifact. Osseous structures: Degenerative changes of the spine. IMPRESSION: 1. No definite central pulmonary embolus is seen. Evaluation of the peripheral branches of pulmonary artery is limited due to motion artifact. 2. Multifocal infiltrates are seen within bilateral lungs likely representing multifocal pneumonia. Left pleural effusion. Findings are new since prior study and could represent infectious etiology how ever aspiration component is also possible. Short-term follow-up in 4-6 weeks is recommended to docum ent resolution. 3. Mild pericardial effusion is new since February 24, 2020. 4. Atherosclerosis, too prominent for patient's age group. ACT 112: Positive. There are findings on this exam that require communication between the performing entity and the patient following Patient Test Result Information Act ([place] Act 112) guidelines. The above report was generated using voice recognition software. It may contain grammatical, syntax o r spelling errors. Electronically signed by: Kathleen Crum DO 07/13/2020 9:55 AM
--- NOTE | 2020-07-13 09:58 | XCELERA ---
[id number]
--- NOTE | 2020-07-13 10:57 | Death Pronouncement Note ---
Date of Service July 13, 2020 Pronouncement Note Admission Date Admission Date: Date of : July 13, 2020 Time of : In short, patient is a 54-year-old male with a history of Castleman's disease who presented with acute hypoxic respiratory failure compounded with pulmonary hemorrhage most likely secondary to Castleman's disease. Aggressive pulmonary measures were undertaken however the patient remained profoundly hypoxic and in severe arts. Attempts were made to transfer the patient to [facility] for possible ECMO however when the flight crew arrived the patient continued to decompensate was never stable enough for transfer and ultimately entered pulseless electrical activity and . Assessment: I presented to the patients room for evaluation. Upon assessment, the patient was found to be in a terminal state. Pupils were fixed and dilated without response. No palpable pulses appreciated. No spontaneous breaths noted. Heart sounds were absent. No response to painful stimuli. Time of : Patient's significant other was contacted from the chart. Patients primary service was contacted and made aware of patient demise.. 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
--- NOTE | 2020-07-13 11:00 | Procedure Note ---
Procedure Note Date of Service July 13, 2020 Procedure date: Noted above Procedure: Cardiopulmonary resuscitation Pre-procedure Diagnosis: CODE BLUE, cardiac arrest Post-procedure Diagnosis: same as above Prior to Procedure: Informed Consent: Emergent Attending Staff: Hoa Geronimo DO Please refer to nursing code flowsheet for further details Description of Procedure: ACS protocols were followed for a pulseless electrical activity. Multiple rounds of ACLS medication were administered CPR was essentially continuous, the patient ultimately from significant hypoxic respiratory failure and pulmonary hemorrhage Complications: Patient would not respond to heroic efforts and ultimately at 0922 Coding CPT Codes Resuscitation - Resuscitation: 18952 Heart/lung resuscitation CPR ([id number]) [facility] Procedure Codes (Charges) Resuscitation Resuscitation: 14402 Heart/lung resuscitation CPR
--- NOTE | 2020-07-13 13:36 | Electrocardiogram Report ---
Test Reason : Blood Pressure : / mmHG Vent. Rate : 092 BPM Atrial Rate : 092 BPM P-R Int : 128 ms QRS Dur : 082 ms QT Int : 330 ms P-R-T Axes : 066 053 058 degrees QTc Int : 408 ms Poor data quality, interpretation may be adversely affected Normal sinus rhythm Normal ECG When compared with ECG of 21-APR-2020 00:43, No significant change was found Confirmed by Feroz Jones ([id number]) on 07/13/2020 1:36:25 PM Referred By: REFERRED SELF Confirmed By:Feroz Jones
--- NOTE | 2020-07-13 13:37 | Electrocardiogram Report ---
Test Reason : Blood Pressure : / mmHG Vent. Rate : 097 BPM Atrial Rate : 194 BPM P-R Int : 000 ms QRS Dur : 084 ms QT Int : 334 ms P-R-T Axes : 060 055 039 degrees QTc Int : 424 ms Normal sinus rhythm Nonspecific ST and T wave abnormality Abnormal ECG When compared with ECG of 13-JUL-2020 00:55, (unconfirmed) No significant change Confirmed by Feroz Jones ([id number]) on 07/13/2020 1:37:46 PM Referred By: REFERRED SELF Confirmed By:Feroz Jones
--- NOTE | 2020-07-13 14:31 | Electrocardiogram Report ---
Test Reason : Blood Pressure : / mmHG Vent. Rate : 126 BPM Atrial Rate : 126 BPM P-R Int : 128 ms QRS Dur : 086 ms QT Int : 280 ms P-R-T Axes : 051 046 049 degrees QTc Int : 405 ms Sinus tachycardia Nonspecific T wave abnormality Abnormal ECG When compared with ECG of 13-JUL-2020 02:24, (unconfirmed) Nonspecific T wave abnormality now evident in Inferior leads Nonspecific T wave abnormality now evident in Lateral leads Confirmed by Feroz Jones ([id number]) on 07/13/2020 2:30:39 PM Referred By: REFERRED SELF Confirmed By:Feroz Jones
--- NOTE | 2020-07-13 16:15 | Discharge Summary ---
Date of Service July 13, 2020 Admission HPI Per Admitting Provider History obtained from patient and records. History somewhat difficult to obtain from patient secondary to respiratory distress/BiPAP appliance. 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 Last confinement [facility] confinement April 2020 for hypertensive urgency. Recent confinement [facility] July 01-2020 for diffuse lymphadenopathy. Concern for lymphoma recurrence following results of PET scan. Patient had bone marrow biopsy and left axilla core biopsy done during confin ement. Biopsy negative for malignancy. As per documentation, due to regression of lymphadenopathy, patient's oncologist recommended work-up as outpatient. Patient discharged on Decadron course. 1 day history of junky cough symptoms without fever, chills as per patient. Patient denies aspiration. Not sure about recent COVID-19 contacts due to recent C confinement. Patient denies chest pain or fluid retention or weight gain.. Worsening shortness of breath noted last night. At the ER, BiPAP initiated for respiratory distress, hypoxemia. Initially given Lasix for possible CHF. Patient received vancomycin and Zosyn for sepsis. Patient subsequently intubated at the ER due to worsening clinical condition. MEDICAL HISTORY: As above. SURGICAL HISTORY: 1. Lung biopsy. 2. Lobectomy procedure. 3. A-Port placement. 4. Ear surgery 5. Lymph node biopsy FAMILY HISTORY: There is a family history of lymphoma. PERSONAL SOCIAL HISTORY: Nonsmoker. 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 L PN Admission Exam Per Admitting Provider GENERAL: uncomfortable, morbidly obese, respiratory distress SKIN: Pallor, warm HEENT: Alopecia, [place] palpebral conjunctivae, no ptosis, dry buccal mucosa, BIPAP in place NECK : Supple, short neck, no tenderness CHEST : Decreased breath sounds, bilateral rhonchi, no tenderness HEART : Tachycardic, no obvious murmurs ABDOMEN: Some distention, nontender EXTREMITIES : Minimal LE swelling, no LE tenderness, no other conspicuous deformities noted NEUROLOGIC : Coherent, no facial asymmetry, no other gross focality Principal Diagnosis Acute hypoxic respiratory failure Discharge Exam General: Sedated, prone position HENT: NCAT, MMM, EOMI Neck: Supple, CVS: Tachycardic Resp: b/l creased breath sounds Abdomen: Could not examine as patient was prolonged Extremities: No c/c/e Neuro: Sedated/intubated Skin: warm and dry, no rashes/lesions/errythema MSK: no joint swelling/erythema Discharge Data Allergies Allergy/AdvReac Type Severity Reaction Status Date / Time No Known Allergies Allergy Verified 07/13/20 01:19 Consultations 07/13/20 03:02 ED Decision to Admit Stat 07/13/20 04:57 Consult [employer] Routine 07/13/20 08:20 Burn CD for patient Stat Ordered Studies 07/13/20 02:18 CT angio chest PE protocol Urgent 07/13/20 07:39 US point of care ultrasound Urgent Hospital Course (1) Severe sepsis: SIRS plus hypoxemia plus lactic acidosis Secondary to HCAP, recent confinement at [facility] Immunocompromised patient given ongoing steroid therapy for lymphadenopathy/Castleman's disease Hodgkin's lymphoma status post chemotherapy Asthma/reactive airway disease exacerbation secondary to bronchopneumonia HTN, patient noted to be hypotensive post intubation hx CVA Pancytopenia Steroid-induced hyperglycemia rule out DM hyperlipidemia on statin Rx Patient is a 54-year-old male who was admitted with acute hypoxic respiratory failure. Patient was intubated on admission. Underwent bronchoscopy with concern for diffuse alveolar hemorrhage. Patient was found to be in severe ARDS. Given his worsening respiratory failure and concern for pulmonary hemorrhage, plan was made to transfer patient to [facility] for ECMO. However, upon arrival of [facility], patient decompensated and further deteriorated into pulseless electrical activity and seized on 07/13/2020. 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
[2020-07-13] MEDS ORDERED: valACYclovir HCL 500 MG TABLET PO SCH ×2 (21:00)
[2020-07-14] MEDS ORDERED: INSULIN GLARGINE SOLOSTAR 100 UNITS/ML 3 ML PEN SC SCH (09:00)
== END 2020-07-13 09:22 | disposition expired | DRG 189 ==
LOC: ED 00:27 → 1E 03:47